=== PATIENT | male | born 1970 | race African-American/Black ===

== ENCOUNTER 2018-08-09 10:08 | Inpatient (IN) ==
[2018-08-09] MEDS ORDERED: Dextrose 50% in Water 50 ML Vial IV.PUSH PRN ×2 (10:50→22:40)
--- NOTE | 2018-08-09 10:55 | ED ---
HPI General Chief complaint: Urogenital-Male Stated complaint: abd pain Time Seen by Provider: 08/09/18 10:41 Source: patient Mode of arrival: ambulatory Limitations: no limitations History of Present Illness HPI Narrative: The patient is a 48-year-old -[place] male who presents to the emergency department for generalized malaise and weakness of 4 days duration. The patient states the symptoms started approximately 4 days ago. The patient complains of fatigue, polydipsia, and polyuria. The patient also complains of mild distention of the abdomen but denies any nausea, vomiting, diarrhea, or constipation. The patient's last bowel movement was 2 days ago. The patient does have a history of "borderline diabetes "that was diagnosed 8 years ago, however, is not currently on any medications. He does have a significant family history of diabetes. The patient denies any chest pain, shortness of breath, or cough. Symptoms are moderate and progressive. The patient does not currently have a primary physician. The patient denies any dysuria or hematuria with the polyuria. MD Complaint: Reports generalized weakness Onset (ago): day(s) Duration: constant Location: Reports generalized Migration: Reports none Severity: moderate Relieving factors: none Exacerbating factors: none Associated symptoms: Reports loss of appetite and other Related Data Home Medications Medication Instructions Recorded Confirmed No Known Home Medications 08/09/18 08/09/18 Allergies Allergy/AdvReac Type Severity Reaction Status Date / Time No Known Allergies Allergy Mild Uncoded 05/22/10 07:57 Review of Systems ROS: all other systems reviewed are negative [facility] Medical History Medical History Patient denies medical problems (Acute) Surgical History Surgical History No history of previous surgery (Acute) Social History Social History Substance History: No History of Abuse Smoking Status: Never smoker How Often Do You Have a Drink Containing Alcohol: 2 to 4 times a month Recent Travel in [facility] within the Last 8 Weeks: No Recent Out of Country Travel within the Last 8 Weeks: No Exam Narrative Exam Narrative: GENERAL: Awake, alert, pleasant 48-year-old male who appears his stated age and is in no acute respiratory distress. SKIN: Focused skin assessment warm/dry. HEAD: Atraumatic. Normocephalic. EYES: Pupils equal and round. No scleral icterus. No injection or drainage. ENT: No nasal bleeding or discharge. Slightly dry mucous membranes. NECK: Trachea midline. No JVD. CARDIOVASCULAR: Regular, tachycardic with a heart rate at 110. RESPIRATORY: No accessory muscle use. Clear to auscultation. Breath sounds equal bilaterally. GASTROINTESTINAL: Abdomen soft, non-tender, nondistended. No epigastric tenderness, no guarding rigidity. MUSCULOSKELETAL: No obvious deformities. No clubbing. No cyanosis. No edema. NEUROLOGICAL: Awake and alert. No obvious cranial nerve deficits. Motor grossly within normal limits. Normal speech. Nonfocal. PSYCHIATRIC: Appropriate mood and affect; insight and judgment normal. Course Initial Documented Vital Signs Temperature 97.6 F 08/09/18 10:13 Pulse Rate 107 H 08/09/18 10:13 Respiratory Rate 20 08/09/18 10:13 Blood Pressure 132/87 08/09/18 10:13 Pulse Oximetry 98 08/09/18 10:13 Last Documented Vital Signs Temperature 97.6 F 08/09/18 10:13 Pulse Rate 107 H 08/09/18 10:13 Respiratory Rate 20 08/09/18 10:13 Blood Pressure 132/87 08/09/18 10:13 Pulse Oximetry 98 08/09/18 10:13 Critical Care Time Critical Care Time: Yes Total Critical Care Time: 35 Attestation: Aggregate critical care time was 35 minutes. Time to perform other separately billable procedures was not included in the critical care time. My time did not include minutes spent treating any other patients simultaneously or on activities that did not directly contribute to the patient's treatment. The services I provided to this patient were to treat and/or prevent clinically significant deterioration that could result in: Dehydration, acute kidney injury , electrolyte of normality, encephalopathy. I provided critical care services requiring my management, as noted below: Chart data review, documentation time, medication orders and management, vital sign assessments/reviewing monitor data, ordering and reviewing lab tests, ordering and interpreting/reviewing x-rays and diagnostic studies, care of the patient and discussion of the patient with the admitting physicians. Medical Decision Making MDM Narrative Medical decision making narrative: IV was established, labs are drawn and sent, and the patient was placed on cardiac telemetry monitoring and continuous pulse oximetry monitoring. Bedside Accu-Chek was obtained, was read as "high ". Therefore, the patient was administered 2 L of IV fluids and Accu-Chek every hour was ordered. VBG was sent to lab. UA was sent to lab. EKG was ordered and interpreted. His blood sugar was greater than 700, anion gap was 17, VBG revealed pH of 7.27, bicarb was 19, patient appears to have mild DKA. After 2 L of IV fluids the patient's blood sugar was still read as "high ", therefore, patient will be placed on an insulin drip and admitted to the intensive care unit under the hospitalist service. I discussed the patient with Dr. Wilcox who agrees with admission. Medical Screen Exam Complete: Yes Emergency Medical Condition: Yes Differential Diagnosis Differential Diagnosis: Differential diagnosis includes DKA, hyperglycemia, new onset diabetes, dehydration, acute kidney injury, electrolyte abnormality, STEMI , UTI, pancreatitis. Lab Data Result diagrams: 08/09/18 12:35 08/09/18 12:35 Lab Results 08/09/18 08/09/18 08/09/18 Range/Units 10:48 12:35 12:35 WBC 9.3 (4.0-11.0) th/mm3 RBC 5.26 (4.50-5.90) mil/mm3 Hgb 17.0 (13.0-17.0) gm/dL Hct 49.8 (39.0-51.0) % MCV 94.8 (80.0-100.0) fL MCH 32.3 (27.0-34.0) pg MCHC 34.1 (32.0-36.0) % RDW 12.6 (11.6-17.2) % Plt Count 277 (150-450) th/mm3 MPV 10.2 (7.0-11.0) fL Neut % (Auto) 80.7 H (16.0-70.0) % Lymph % (Auto) 14.9 (9.0-44.0) % Bonner % (Auto) 4.2 (0.0-8.0) % Eos % (Auto) 0.0 (0.0-4.0) % Baso % (Auto) 0.2 (0.0-2.0) % Neut # (Auto) 7.5 (1.8-7.7) th/mm3 Lymph # (Auto) 1.4 (1.0-4.8) th/mm3 Bonner # (Auto) 0.4 (0.0-0.9) th/mm3 Eos # (Auto) 0.0 (0.0-0.4) th/mm3 Baso # (Auto) 0.0 (0.0-0.2) th/mm3 WBC Differential . Differential Comment Auto diff final Patient Temperature VBG pH (7.360-7.400) VBG pCO2 (44-48) mmHG VBG pO2 (35-40) mmHG VBG HCO3 (22-26) mmol/L VBG O2 Saturation (70-76) % VBG O2 Content (9.0-17.0) Vol % VBG Base Excess (-2-2) mmol/L VBG Carboxyhemoglobin (0-4) % VBG Methemoglobin (0-2) % Hemoglobin (12.0-16.0) G/DL Inspired O2 % Critical Value Sodium 130 L (136-145) meq/L Potassium 5.5 H (3.5-5.1) meq/L Chloride 94 L (98-107) meq/L Carbon Dioxide 19.5 L (21.0-32.0) meq/L Anion Gap 17 H (5-15) meq/L BUN 31 H (7-18) mg/dL Creatinine 1.96 H (0.60-1.30) mg/dL Estimated GFR 44 L (>89) mL/min POC Glucose Greater than 600 H* (68-110) mg/dl Random Glucose 712 H* (74-106) mg/dL Lactic Acid (0.4-2.0) mmol/L Calcium 9.4 (8.5-10.1) mg/dL Magnesium 2.7 H (1.5-2.5) mg/dL Total Bilirubin 0.6 (0.2-1.0) mg/dL AST 17 (15-37) U/L ALT 40 (12-78) U/L Alkaline Phosphatase 138 H (45-117) U/L Troponin I Less than 0.02 L (0.02-0.05) ng/mL Total Protein 9.5 H (6.4-8.2) g/dL Albumin 4.3 (3.4-5.0) g/dL Lipase 300 (73-393) U/L Beta-Hydroxybutyric Acd 5.62 H (0.00-0.39) mmol/L Urine Color (Yellw/Straw) Urine Clarity (Clear) Urine pH (5.0-8.5) Ur Specific [place] (1.002-1.035) Urine Protein (Neg-Trace) mg/dL Urine Glucose (UA) (Negative) mg/dL Urine Ketones (Negative) mg/dL Urine Occult Blood (Negative) Urine Nitrate (Negative) Urine Bilirubin (Negative) Urine Urobilinogen (Less than 2) mg/dL Ur Leukocyte Esterase (Negative) Urine RBC (0-3) /hpf Urine WBC (0-5) /hpf Ur Squamous Epith Cells (0-5) /hpf Urine Mucus (Occasional) /lpf Micro UA Comment Ur Microscopic Review Urine Culture Comments 08/09/18 08/09/18 08/09/18 Range/Units 12:35 13:10 14:21 WBC (4.0-11.0) th/mm3 RBC (4.50-5.90) mil/mm3 Hgb (13.0-17.0) gm/dL Hct (39.0-51.0) % MCV (80.0-100.0) fL MCH (27.0-34.0) pg MCHC (32.0-36.0) % RDW (11.6-17.2) % Plt Count (150-450) th/mm3 MPV (7.0-11.0) fL Neut % (Auto) (16.0-70.0) % Lymph % (Auto) (9.0-44.0) % Bonner % (Auto) (0.0-8.0) % Eos % (Auto) (0.0-4.0) % Baso % (Auto) (0.0-2.0) % Neut # (Auto) (1.8-7.7) th/mm3 Lymph # (Auto) (1.0-4.8) th/mm3 Bonner # (Auto) (0.0-0.9) th/mm3 Eos # (Auto) (0.0-0.4) th/mm3 Baso # (Auto) (0.0-0.2) th/mm3 WBC Differential Differential Comment Patient Temperature 98.6 VBG pH 7.28 L* (7.360-7.400) VBG pCO2 44 (44-48) mmHG VBG pO2 24 L* (35-40) mmHG VBG HCO3 20 L (22-26) mmol/L VBG O2 Saturation 31 L (70-76) % VBG O2 Content 6.4 L (9.0-17.0) Vol % VBG Base Excess -6.0 L (-2-2) mmol/L VBG Carboxyhemoglobin 0.5 (0-4) % VBG Methemoglobin 0.6 (0-2) % Hemoglobin 14.6 (12.0-16.0) G/DL Inspired O2 21 % Critical Value Yes Sodium (136-145) meq/L Potassium (3.5-5.1) meq/L Chloride (98-107) meq/L Carbon Dioxide (21.0-32.0) meq/L Anion Gap (5-15) meq/L BUN (7-18) mg/dL Creatinine (0.60-1.30) mg/dL Estimated GFR (>89) mL/min POC Glucose (68-110) mg/dl Random Glucose (74-106) mg/dL Lactic Acid 3.9 H (0.4-2.0) mmol/L Calcium (8.5-10.1) mg/dL Magnesium (1.5-2.5) mg/dL Total Bilirubin (0.2-1.0) mg/dL AST (15-37) U/L ALT (12-78) U/L Alkaline Phosphatase (45-117) U/L Troponin I (0.02-0.05) ng/mL Total Protein (6.4-8.2) g/dL Albumin (3.4-5.0) g/dL Lipase (73-393) U/L Beta-Hydroxybutyric Acd (0.00-0.39) mmol/L Urine Color Straw (Yellw/Straw) Urine Clarity Clear (Clear) Urine pH 5.0 (5.0-8.5) Ur Specific [place] 1.027 (1.002-1.035) Urine Protein Negative (Neg-Trace) mg/dL Urine Glucose (UA) 500 or greater (Negative) mg/dL Urine Ketones 20 (Negative) mg/dL Urine Occult Blood Negative (Negative) Urine Nitrate Negative (Negative) Urine Bilirubin Negative (Negative) Urine Urobilinogen Less than 2 (Less than 2) mg/dL Ur Leukocyte Esterase Negative (Negative) Urine RBC Less than 1 (0-3) /hpf Urine WBC Less than 1 (0-5) /hpf Ur Squamous Epith Cells <1 (0-5) /hpf Urine Mucus Few H (Occasional) /lpf Micro UA Comment Culture not ind Ur Microscopic Review Not Reportable Urine Culture Comments Culture not ind 08/09/18 Range/Units 14:23 WBC (4.0-11.0) th/mm3 RBC (4.50-5.90) mil/mm3 Hgb (13.0-17.0) gm/dL Hct (39.0-51.0) % MCV (80.0-100.0) fL MCH (27.0-34.0) pg MCHC (32.0-36.0) % RDW (11.6-17.2) % Plt Count (150-450) th/mm3 MPV (7.0-11.0) fL Neut % (Auto) (16.0-70.0) % Lymph % (Auto) (9.0-44.0) % Bonner % (Auto) (0.0-8.0) % Eos % (Auto) (0.0-4.0) % Baso % (Auto) (0.0-2.0) % Neut # (Auto) (1.8-7.7) th/mm3 Lymph # (Auto) (1.0-4.8) th/mm3 Bonner # (Auto) (0.0-0.9) th/mm3 Eos # (Auto) (0.0-0.4) th/mm3 Baso # (Auto) (0.0-0.2) th/mm3 WBC Differential Differential Comment Patient Temperature VBG pH (7.360-7.400) VBG pCO2 (44-48) mmHG VBG pO2 (35-40) mmHG VBG HCO3 (22-26) mmol/L VBG O2 Saturation (70-76) % VBG O2 Content (9.0-17.0) Vol % VBG Base Excess (-2-2) mmol/L VBG Carboxyhemoglobin (0-4) % VBG Methemoglobin (0-2) % Hemoglobin (12.0-16.0) G/DL Inspired O2 % Critical Value Sodium (136-145) meq/L Potassium (3.5-5.1) meq/L Chloride (98-107) meq/L Carbon Dioxide (21.0-32.0) meq/L Anion Gap (5-15) meq/L BUN (7-18) mg/dL Creatinine (0.60-1.30) mg/dL Estimated GFR (>89) mL/min POC Glucose Greater than 600 H* (68-110) mg/dl Random Glucose (74-106) mg/dL Lactic Acid (0.4-2.0) mmol/L Calcium (8.5-10.1) mg/dL Magnesium (1.5-2.5) mg/dL Total Bilirubin (0.2-1.0) mg/dL AST (15-37) U/L ALT (12-78) U/L Alkaline Phosphatase (45-117) U/L Troponin I (0.02-0.05) ng/mL Total Protein (6.4-8.2) g/dL Albumin (3.4-5.0) g/dL Lipase (73-393) U/L Beta-Hydroxybutyric Acd (0.00-0.39) mmol/L Urine Color (Yellw/Straw) Urine Clarity (Clear) Urine pH (5.0-8.5) Ur Specific [place] (1.002-1.035) Urine Protein (Neg-Trace) mg/dL Urine Glucose (UA) (Negative) mg/dL Urine Ketones (Negative) mg/dL Urine Occult Blood (Negative) Urine Nitrate (Negative) Urine Bilirubin (Negative) Urine Urobilinogen (Less than 2) mg/dL Ur Leukocyte Esterase (Negative) Urine RBC (0-3) /hpf Urine WBC (0-5) /hpf Ur Squamous Epith Cells (0-5) /hpf Urine Mucus (Occasional) /lpf Micro UA Comment Ur Microscopic Review Urine Culture Comments Discharge Plan Discharge Order Discharge Orders: ED Use Only Admit Order (Routine); Ordered 08/09/18 Ordered By: David Benavidez Physicians Team ED Provider: David Benavidez Primary Care Provider: Primary Care Cindy Blanton Rxs /Orders / Referrals /Forms Prescriptions: No Action No Known Home Medications RF: 0 Discharge Interventions Interventions: Vital Signs Last Done: 08/09/18 10:13 Status ED Status: Admitted Patient
[2018-08-09] MEDS: Sod Chloride 0.9% Inj 1,000 ML IV.SIG SCH ×2 (12:39→13:14)
[2018-08-09 13:03] LABS: Baso % (Auto) 0.2 % (0.0-2.0); Hematocrit 49.8 % (39.0-51.0); Lymph # (Auto) 1.4 th/mm3 (1.0-4.8); Lymph % (Auto) 14.9 % (9.0-44.0); Mean Corpuscular HGB Conc 34.1 % (32.0-36.0); Mean Corpuscular Hemoglobin 32.3 pg (27.0-34.0); Mean Corpuscular Volume 94.8 fL (80.0-100.0); Mean Platelet Volume 10.2 fL (7.0-11.0); Mono # (Auto) 0.4 th/mm3 (0.0-0.9); Mono % (Auto) 4.2 % (0.0-8.0); Neut # (Auto) 7.5 th/mm3 (1.8-7.7); Neut % (Auto) 80.7 % (16.0-70.0); Platelet Count 277 th/mm3 (150-450); Red Blood Count 5.26 mil/mm3 (4.50-5.90); Red Cell Distribution Width 12.6 % (11.6-17.2); White Blood Count 9.3 th/mm3 (4.0-11.0)
[2018-08-09 13:34] LABS: Anion Gap 17 meq/L (5-15)
[2018-08-09 13:43] LABS: Bilirubin,Urine Negative (Negative); Clarity,Urine Clear (Clear); Color,Urine Straw (Yellw/Straw); Glucose,Urine (UA) 500 or Greater mg/dL (Negative); Leukocyte Esterase,Urine Negative (Negative); Mucus,Urine Few /lpf (Occasional); Nitrite,Urine Negative (Negative); Specific Gravity,Urine 1.027 (1.002-1.035); Squamous Epithelial Cell,Urine <1 /hpf (0-5)
[2018-08-09 13:50] LABS: Alanine Aminotransferase 40 U/L (12-78); Albumin 4.3 g/dL (3.4-5.0); Alkaline Phosphatase 138 U/L (45-117); Aspartate Aminotransferase 17 U/L (15-37); Beta Hydroxybutyric Acid 5.62 mmol/L (0.00-0.39); Blood Urea Nitrogen 31 mg/dL (7-18); Calcium 9.4 mg/dL (8.5-10.1); Carbon Dioxide 19.5 meq/L (21.0-32.0); Chloride 94 meq/L (98-107); Glomerular Filtration Rate 44 mL/min (>89); Lipase 300 U/L (73-393); Magnesium 2.7 mg/dL (1.5-2.5); Potassium 5.5 meq/L (3.5-5.1); Sodium 130 meq/L (136-145); Total Protein 9.5 g/dL (6.4-8.2)
[2018-08-09 13:57] LABS: Glucose,Random 712 mg/dL (74-106)
[2018-08-09 14:30] LABS: VBG Blood Gas Oxygen Content 6.4 Vol % (9.0-17.0); VBG PCO2 44 mmHG (44-48); VBG PH 7.28 (7.360-7.400); VBG PO2 24 mmHG (35-40)
[2018-08-09] MEDS ORDERED: Sodium Phosphate Inj 15 MMOL in Sodium Chlor 0.9% Inj 100 ML IV.SIG PRN (14:41)
[2018-08-09] MEDS ORDERED: Potassium Chlor 20 mEq Premix 20 MEQ/100 ML PIGGYBACK IV.SIG PRN ×6 (14:41)
[2018-08-09] MEDS ORDERED: Potassium Chlor 40 mEq Premix 40 MEQ/100 ML PIGGYBACK IV.SIG PRN ×2 (14:41)
[2018-08-09] MEDS ORDERED: Insulin Regular (For Infusion) 100 UNIT in Sodium Chlor 0.9% Inj 99 ML IV.CONT PRN (14:41)
[2018-08-09] MEDS: Sod Chloride 0.9% Inj 1,000 ML IV.CONT SCH ×2 (14:51→23:27)
--- NOTE | 2018-08-09 15:21 | P.HPIM ---
History of Present Illness Primary Care Physician: No Primary Care Physician Chief Complaint: generalized weakness History of Present Illness: patient is a 48 y/o male with ' borderline diabetes ' presented to ER with few-day history of generalized weakness. he says that he hasn't seen a physician for many years but he was told in the past that he had borderline diabetes. he says that for a few days he's been feeling weak. he has polyuria and feels thirsty. he's not sure if he lost any weight. he denies any abdominal pain, nausea, vomiting, fever, chills, cough or vision changes. Inpatient Certification Inpatient Certification: I certify that the inpatient services were ordered in accordance with Medicare regulations governing the order. This includes certification that hospital inpatient services are reasonable and necessary and in the case of services not specified as inpatient-only under 42 CFR 419.22(n), that they are appropriately provided as inpatient services in accordance to with the 2-midnight benchmark under 43 CFR 412.3(e) Review of Systems Review of Systems: all other systems reviewed are negative [facility] Medical History Medical History Borderline diabetes (Acute) Patient denies medical problems (Acute) Surgical History Surgical History No history of previous surgery (Acute) Family History Family History Mother Diabetes Social History Social History Substance History: No History of Abuse Smoking Status: Never smoker How Often Do You Have a Drink Containing Alcohol: 2 to 4 times a month Recent Travel in [facility] within the Last 8 Weeks: No Recent Out of Country Travel within the Last 8 Weeks: No Immunization History Tetanus Immunization: <5 Years Medications and Allergies Allergies Allergy/AdvReac Type Severity Reaction Status Date / Time No Known Allergies Allergy Mild Uncoded 05/22/10 07:57 Home Medications Medication Instructions Recorded Confirmed Type No Known Home Medications 08/09/18 08/09/18 History Active Medications: Active Medications Chlorhexidine Gluconate (Chlorhexidine 2% Cloth) 3 pack TOPICAL DAILY@0400 [facility] Stop: 08/15/18 03:59 Chlorhexidine Gluconate (Chlorhexidine 2% Cloth) 3 pack TOPICAL DAILY@0400 PRN PRN Reason: Extra cloth needed Stop: 08/15/18 03:59 Dextrose (D50w Vial) 50 ml IV.PUSH UNSCH PRN PRN Reason: PER HYPOGLYCEMIA PROTOCOL Dextrose/Sodium Chloride (D5w/Normal Saline Inj) 1,000 mls @ 200 mls/hr IV.CONT .Q5H [facility] Insulin Human Regular 100 unit (/ Sodium Chloride) 100 mls @ 10 mls/hr IV.CONT TITRATE PRN; Protocol PRN Reason: See protocol Potassium Chloride (Kcl 20 Meq Premix Inj) 20 meq in 100 mls @ 100 mls/hr IV.SIG Q1H PRN PRN Reason: for K+ 4.5 to 5 Potassium Chloride (Kcl 20 Meq Premix Inj) 20 meq in 100 mls @ 50 mls/hr IV.SIG Q2H PRN PRN Reason: for K+ 4.5 to 5 Potassium Chloride (Kcl 20 Meq Premix Inj) 20 meq in 100 mls @ 50 mls/hr IV.SIG Q2H PRN PRN Reason: for K+ 3.5 to 4.4 Potassium Chloride (Kcl 20 Meq Premix Inj) 20 meq in 100 mls @ 50 mls/hr IV.SIG Q2H PRN PRN Reason: for Initial K+ ONLY < 3.5 Potassium Chloride (Kcl 40 Meq Premix Inj) 40 meq in 100 mls @ 100 mls/hr IV.SIG Q1H PRN PRN Reason: for Initial K+ ONLY < 3.5 Potassium Chloride (Kcl 20 Meq Premix Inj) 20 meq in 100 mls @ 50 mls/hr IV.SIG Q2H PRN PRN Reason: for Subsequent K+ < 3.5 Potassium Chloride (Kcl 40 Meq Premix Inj) 40 meq in 100 mls @ 50 mls/hr IV.SIG Q2H PRN PRN Reason: for Subsequent K+ < 3.5 Sodium Chloride (Ns Inj) 1,000 mls @ 250 mls/hr IV.CONT .Q4H [facility] Last Admin: 08/09/18 14:51 Dose: 250 mls/hr Sodium Phosphate 15 mmol/ (Sodium Chloride) 105 mls @ 25 mls/hr IV.SIG UNSCH PRN PRN Reason: for Phosphate Level < 1.0 Potassium Chloride (Kcl 20 Meq Premix Inj) 20 meq in 100 mls @ 100 mls/hr IV.SIG Q1H PRN PRN Reason: for K+ 3.5 to 4.4 Sodium Bicarbonate (Sodium Bicarbonate 8.4% Inj) 100 meq IV.PUSH UNSCH PRN PRN Reason: for pH less than 6.9 Sodium Bicarbonate (Sodium Bicarbonate 8.4% Inj) 50 meq IV.PUSH UNSCH PRN PRN Reason: for pH 6.9 to 7.0 Sodium Chloride (Ns Flush) 2 ml IV.FLUSH PRN PRN PRN Reason: FLUSH AFTER USING IV ACCESS Physical Exam Vital signs: Last Vital Signs Temp 97.6 F 08/09/18 10:13 Pulse 107 H 08/09/18 10:13 Resp 20 08/09/18 10:13 BP 132/87 08/09/18 10:13 Pulse Ox 98 08/09/18 10:13 Intake & Output 08/07/18 08/08/18 08/09/18 08/10/18 06:59 06:59 06:59 06:59 Intake Total 1999 Balance 1999 Weight 95.708 kg Constitutional no acute distress Routine HEENT Exam Eye: Present PERRL Routine Neck Exam Present supple Routine Respiratory Exam Present CTA bilaterally Routine Cardiovascular Exam Present RRR Routine Abdominal Exam Present soft Routine Extremities Exam Comments: no pedal edema. Routine Neurological Exam Present alert and oriented X3 Results Labs CBC & Chem 7: 08/09/18 12:35 08/09/18 12:35 Caprini VTE Risk Assessment Caprini VTE Risk Assessment: Moderate/High Risk (score >= 2) Caprini Risk Assessment Model: Point Value = 1 Point Value = 2 Point Value = 3 Point Value = 5 Age 41-60 Minor surgery BMI > 25 kg/m2 Swollen legs Varicose veins or History of unexplained or recurrent spontaneous Oral contraceptives or hormone replacement Sepsis (< 1 month) Serious lung disease, including pneumonia (< 1 month) Abnormal pulmonary function Acute myocardial infarction Congestive heart failure (< 1 month) History of inflammatory bowel disease Medical patient at bed rest Age 61-74 Arthroscopic surgery Major open surgery (> 45 min) Laparoscopic surgery (> 45 min) Malignancy Confined to bed (> 72 hours) Immobilizing plaster cast Central venous access Age >= 75 History of VTE Family history of VTE Factor V Leiden Prothrombin [id number] Lupus anticoagulant Anticardiolipin antibodies Elevated serum homocysteine Heparin-induced thrombocytopenia Other congenital or acquired thrombophilia Stroke (< 1 month) Elective arthroplasty Hip, pelvis, or leg fracture Acute spinal cord injury (< 1 month) Prophylaxis Regimen: Total Risk Factor Score Risk Level Prophylaxis Regimen 0-1 Low Early ambulation 2 Moderate Order ONE of the following: *Sequential Compression Device (SCD) *Heparin 5000 units SQ BID 3-4 Higher Order ONE of the following medications: *Heparin 5000 units SQ TID *Enoxaparin/Lovenox 40 mg SQ daily (WT < 150 kg, CrCl > 30 mL/min) *Enoxaparin/Lovenox 30 mg SQ daily (WT < 150 kg, CrCl > 10-29 mL/min) *Enoxaparin/Lovenox 30 mg SQ BID (WT < 150 kg, CrCl > 30 mL/min) AND/OR *Sequential Compression Device (SCD) 5 or more Highest Order ONE of the following medications: *Heparin 5000 units SQ TID (Preferred with Epidurals) *Enoxaparin/Lovenox 40 mg SQ daily (WT < 150 kg, CrCl > 30 mL/min) *Enoxaparin/Lovenox 30 mg SQ daily (WT < 150 kg, CrCl > 10-29 mL/min) *Enoxaparin/Lovenox 30 mg SQ BID (WT < 150 kg, CrCl > 30 mL/min) AND *Sequential Compression Device (SCD) Assessment and Plan Plan A/P - DKA start on Insulin drip along with aggressive IV hydration-- monitor the electrolytes closely. check A1c and consult health promotion educator. -acute kidney injury/ hyperkalemia start on aggressive IV hydration and monitor the I/O and renal function. potassium level expected to improve with insulin drip. -Hyponatremia- due to hyperglycemia continue IV fluid and monitor. -DVT prophylaxis; subq heparin Discussed Condition With: ER physician and the patient. Discharge Planning: home when stable.
[2018-08-09] MEDS: Dextrose 5%/NaCl 0.9% Inj 1,000 ML IV.CONT SCH ×2 (19:04→23:28)
[2018-08-09 20:40] LABS: VBG Base Excess 0.1 mmol/L (-2-2); VBG Blood Gas Oxygen Content 16.9 Vol % (9.0-17.0); VBG PCO2 42 mmHG (44-48); VBG PH 7.38 (7.360-7.400); VBG PO2 48 mmHG (35-40)
[2018-08-09 20:44] LABS: Calcium 9.4 mg/dL (8.5-10.1); Carbon Dioxide 24.9 meq/L (21.0-32.0); Potassium 4.1 meq/L (3.5-5.1)
[2018-08-09] MEDS ORDERED: DC previous DKA orders (HMC 1917) OTHER ONE (22:40)
[2018-08-09] MEDS ORDERED: DC Insulin drip 2 hrs post basal insulin dose OTHER ONE (22:40)
[2018-08-09] MEDS ORDERED: DC previous DKA orders (HMC 1917) MISCELLANE ONE (22:40)
[2018-08-09] MEDS: Heparin - SQ 10,000 UNITS/ML Vial SQ SCH (23:29)
[2018-08-10] MEDS: Dextrose 5%/NaCl 0.9% Inj 1,000 ML IV.CONT SCH ×2 (00:55→05:57)
[2018-08-10] MEDS: Insulin NovoLOG Aspart Correctional Sugar Inj SQ SCH ×5 (00:55→23:49)
[2018-08-10 02:02] LABS: Calcium 8.6 mg/dL (8.5-10.1); Carbon Dioxide 23.7 meq/L (21.0-32.0); Potassium 4.1 meq/L (3.5-5.1)
[2018-08-10] MEDS ORDERED: Chlorhexidine Gluconate 2% 1 Pack (2 Cloths) TOPICAL PRN (04:00)
[2018-08-10] MEDS: Chlorhexidine Gluconate 2% 1 Pack (2 Cloths) TOPICAL SCH (05:57)
[2018-08-10] MEDS: Sod Chloride 0.9% Inj 1,000 ML IV.CONT SCH ×4 (05:57→17:44)
--- NOTE | 2018-08-10 07:28 | P.PNIM ---
Subjective Interval history: f/u; DKA in no acute distress. resting comfortably with no distress. blood sugar trend noted. no new complaints. Physical Exam Vital signs: Last Vital Signs Temp 98.6 F 08/10/18 04:00 Pulse 81 08/10/18 06:00 Resp 10 L 08/10/18 04:00 BP 133/75 08/10/18 04:00 Pulse Ox 100 08/10/18 04:00 Intake & Output 08/08/18 08/09/18 08/10/18 08/11/18 06:59 06:59 06:59 06:59 Intake Total 4350 / 4350 Output Total 2500 / 2500 Balance 1850 / 1850 Weight 107.2 kg Constitutional no acute distress Routine Respiratory Exam Present CTA bilaterally Routine Cardiovascular Exam Present RRR Routine Abdominal Exam Present soft Routine Extremities Exam Comments: no pedal edema. Routine Neurological Exam Present alert and oriented X3 Results Labs CBC & Chem 7: 08/09/18 12:35 08/10/18 08:15 Assessment and Plan Plan A/P - DKA- has resolved. Insulin drip was dc'ed and started on long acting insulin along with SSI- A1c pending- prosthodontist/educator consulted. -acute kidney injury- improved. -hyperkalemia; resolved. continue with IV fluid and monitor the renal function. -Hyponatremia- due to hyperglycemia- improved. continue IV fluid and monitor. -DVT prophylaxis; subq heparin transfer to floor. Discharge Planning: home within the next 24 hrs. Progress Note: Quality VTE Deep Vein Thrombosis/Pulmonary Embolism Present on Admission: No
[2018-08-10] MEDS: Heparin - SQ 10,000 UNITS/ML Vial SQ SCH ×2 (08:13→20:44)
[2018-08-10] MEDS ORDERED: Insulin Detemir Inj 1,000 UNIT/10 ML Vial SQ SCH (09:00)
[2018-08-10 10:16] LABS: Calcium 9.2 mg/dL (8.5-10.1); Carbon Dioxide 25.7 meq/L (21.0-32.0); Potassium 3.9 meq/L (3.5-5.1)
[2018-08-10 15:27] LABS: Calcium 8.8 mg/dL (8.5-10.1); Carbon Dioxide 26.9 meq/L (21.0-32.0); Potassium 3.8 meq/L (3.5-5.1)
[2018-08-10 16:26] LABS: Hemoglobin A1c 13.4 % (4.3-6.0)
[2018-08-11] MEDS: Insulin NovoLOG Aspart Correctional Sugar Inj SQ SCH ×3 (07:00→17:28)
[2018-08-11 07:27] LABS: Calcium 8.4 mg/dL (8.5-10.1); Potassium 3.3 meq/L (3.5-5.1)
[2018-08-11] MEDS: Sod Chloride 0.9% Inj 1,000 ML IV.CONT SCH ×2 (08:08→10:45)
[2018-08-11] MEDS: Chlorhexidine Gluconate 2% 1 Pack (2 Cloths) TOPICAL SCH (08:09)
[2018-08-11] MEDS: Insulin Detemir Inj 1,000 UNIT/10 ML Vial SQ SCH (09:23)
[2018-08-11] MEDS: Heparin - SQ 10,000 UNITS/ML Vial SQ SCH ×2 (09:24→20:29)
--- NOTE | 2018-08-11 12:52 | P.PN ---
Subjective Interval history: Follow-up visit for hyperglycemia, DKA. Patient is seen and examined sitting up on the side of the bed eating lunch this morning. Reports he is feeling much better and denies any ongoing urinary frequency. Denies any fevers, chills , nausea, vomiting or diarrhea. Extensive discussion regarding diabetes, diet, medications, hypoglycemia signs and symptoms and the need to continue follow-up with his primary care physician. Discussed with nurse, please allow patient to self administer insulin while supervised and continue education. Physical Exam Vital signs: Vital Signs 08/10/18 14:00 08/10/18 16:00 08/10/18 17:00 Temperature 98.6 F Pulse Rate 86 70 83 Respiratory Rate 12 14 Blood Pressure 141/85 H 139/90 Pulse Oximetry 100 100 08/10/18 18:00 08/10/18 18:01 08/10/18 19:00 Temperature Pulse Rate 82 81 86 Respiratory Rate 24 22 14 Blood Pressure 167/100 H 124/64 Pulse Oximetry 100 100 100 08/10/18 20:00 08/11/18 00:00 08/11/18 04:00 Temperature 98.4 F 98.0 F 97.5 F L Pulse Rate 96 H 87 75 Respiratory Rate 27 H 18 18 Blood Pressure 129/68 138/87 150/76 H Pulse Oximetry 100 98 100 08/11/18 08:00 08/11/18 12:00 Temperature 97.5 F L 97.6 F Pulse Rate 90 67 Respiratory Rate 12 12 Blood Pressure 139/85 126/74 Pulse Oximetry 100 99 Intake & Output 08/10/18 08/11/18 08/11/18 18:59 06:59 18:59 Intake Total 500 / 500 480 / 480 Output Total 900 / 900 Balance -400 / -400 480 / 480 Weight 107.4 kg Intake: Oral 500 / 500 480 / 480 Output: Urine 900 / 900 Stool 0 / 0 Urine/Stool Mix 0 / 0 Other: # Voids 2 2 # Bowel Movements 0 # Incontinent Bowel Movements 0 Narrative: GENERAL: Well-nourished, well-developed -[place] male in no acute distress. SKIN: Warm and dry. HEAD: Atraumatic. Normocephalic. ENT: Mucous membranes pink and moist. NECK: Trachea midline. CARDIOVASCULAR: Regular rate and rhythm. RESPIRATORY: No accessory muscle use. Clear to auscultation. Breath sounds equal bilaterally. GASTROINTESTINAL: Abdomen soft, + Bowel sounds MUSCULOSKELETAL: Extremities without clubbing, cyanosis, or edema. NEUROLOGICAL: Awake, alert, oriented x3. No obvious cranial nerve deficits. Motor grossly within normal limits. Normal speech. PSYCHIATRIC: Appropriate mood and affect; insight and judgment normal. Results - Labs CBC & Chem 7: 08/09/18 12:35 08/11/18 05:25 Laboratory Results - last 24 hr 08/09/18 08/10/18 08/10/18 12:35 14:34 17:13 Sodium 142 Potassium 3.8 Chloride 109 H Carbon Dioxide 26.9 Anion Gap 6 BUN 23 H Creatinine 1.29 Estimated GFR 72 L POC Glucose 303 H Random Glucose 299 H Hemoglobin A1c 13.4 H Calcium 8.8 08/10/18 08/11/18 08/11/18 23:42 05:25 06:49 Sodium 140 Potassium 3.3 L Chloride 107 Carbon Dioxide 25.0 Anion Gap 8 BUN 17 Creatinine 1.17 Estimated GFR 81 L POC Glucose 248 H 277 H Random Glucose 274 H Hemoglobin A1c Calcium 8.4 L 08/11/18 11:56 Sodium Potassium Chloride Carbon Dioxide Anion Gap BUN Creatinine Estimated GFR POC Glucose 321 H Random Glucose Hemoglobin A1c Calcium Assessment and Plan - Plan 48-year-old male with past medical history significant for borderline diabetes who presented to the emergency department 08/09 with complaints of generalized weakness, polyuria and polydipsia. Patient found to be in diabetic ketoacidosis with anion gap of 17, beta-Hydroxybutyric acid 5.62 blood sugar greater than 700, acute kidney injury with creatinine 1.96, and hyperkalemia with potassium level 5.5. Patient was admitted and initiated on insulin drip. Diabetic ketoacidosis, resolved Hemoglobin A1c 13.4 -Diabetic diet, diabetic education provided -Accu-Cheks with insulin sliding scale, blood sugars over the past 24 hours 351- 277 -Increase a.m. Levemir to 15 units, add at bedtime Levemir 5 units Hyponatremia, resolved Hypokalemia, mild -Replace orally, recheck levels tomorrow Acute kidney injury, improved -IV fluids discontinued, tolerating oral intake. 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 Current medications still being adjusted, likely discharge tomorrow.
[2018-08-11] MEDS ORDERED: Insulin Detemir Inj 1,000 UNIT/10 ML Vial SQ SCH (21:00)
[2018-08-12] MEDS: Insulin NovoLOG Aspart Correctional Sugar Inj SQ SCH ×4 (00:40→17:00)
[2018-08-12] MEDS: Heparin - SQ 10,000 UNITS/ML Vial SQ SCH (08:00)
[2018-08-12] MEDS: Insulin Detemir Inj 1,000 UNIT/10 ML Vial SQ SCH (08:07)
--- NOTE | 2018-08-12 08:18 | P.DS ---
Date of admission: 08/09/18 14:52 Primary care physician: No Primary Care Physician Attending physician on discharge: [place] Rodríguez Anticipated date of discharge: 08/12/18 Brief History from admission: patient is a 48 y/o male with ' borderline diabetes' presented to ER with few- day history of generalized weakness. he says that he hasn't seen a physician for many years but he was told in the past that he had borderline diabetes. he says that for a few days he's been feeling weak. he has polyuria and feels thirsty. he's not sure if he lost any weight. he denies any abdominal pain, nausea, vomiting, fever, chills, cough or vision changes. DS: Medications - Discharge Medications Prescriptions: insulin aspart U-100 [Novolog U-100 Insulin aspart] 0 unit SUBCUT ACHS #15 ml insulin detemir U-100 [Levemir U-100 Insulin] 15 unit SUBCUT DAILY #15 ml insulin detemir U-100 [Levemir U-100 Insulin] 5 unit SUBCUT HS #15 ml DS: Summary Hospital Course: 48-year-old male with past medical history significant for borderline diabetes who presented to the emergency department on 08/09 with complaints of generalized weakness, polyuria and polydipsia. Patient found to be in diabetic ketoacidosis with anion gap of 17, beta-Hydroxybutyric acid 5.62 blood sugar greater than 700, acute kidney injury with creatinine 1.96, and hyperkalemia with potassium level 5.5. Patient was admitted and initiated on insulin drip. Patients blood sugars subsequently improved and anion gap closed with improvement in symptoms. Patient was switched over to Accu-Cheks as well as long acting insulin. Levemir 15 units in the morning, 5 units at bedtime along with insulin sliding scale. Blood sugars in the 130s. Hypokalemic this morning with potassium 3.2, will be provided with 30 meq's of potassium x2 doses prior to discharge. Patient is seen and examined sitting up in bed in no acute distress. Denies any fevers, chills, nausea, vomiting, diarrhea, dysuria , polydipsia, or urinary frequency. Discussed the importance of ongoing monitoring including hemoglobin A1c, blood sugars with his primary care physician. Discussed with case management. All of his prescriptions will be refilled today through the inpatient pharmacy, provided as daily clinic information. - Time Spent with Patient Total time spent providing and/or coordinating discharge services: Less than 30 minutes - Quality: VTE Deep Vein Thrombosis/Pulmonary Embolism Present on Admission: No Exam Vital signs: Vital Signs 08/11/18 12:00 08/11/18 16:00 08/11/18 20:20 Temperature 97.6 F 97.5 F L Pulse Rate 67 84 Respiratory Rate 12 18 Blood Pressure 126/74 138/85 Pulse Oximetry 99 100 100 08/11/18 20:33 08/11/18 20:49 08/12/18 00:38 Temperature 98.3 F 97.7 F Pulse Rate 76 82 Respiratory Rate 20 18 Blood Pressure 157/78 H 124/68 Pulse Oximetry 100 98 100 Intake & Output 08/11/18 08/12/18 08/12/18 18:59 06:59 18:59 Intake Total 480 / 480 480 / 480 Balance 480 / 480 480 / 480 Intake: Oral 480 / 480 480 / 480 Other: # Voids 4 3 Date of Last Bowel Movement 08/11/18 # Bowel Movements 1 Narrative: GENERAL: Well-nourished, well-developed -[place] male in no acute distress. SKIN: Warm and dry. HEAD: Atraumatic. Normocephalic. ENT: Mucous membranes pink and moist. NECK: Trachea midline. CARDIOVASCULAR: Regular rate and rhythm. RESPIRATORY: No accessory muscle use. Clear to auscultation. Breath sounds equal bilaterally. GASTROINTESTINAL: Abdomen soft, + Bowel sounds MUSCULOSKELETAL: Extremities without clubbing, cyanosis, or edema. NEUROLOGICAL: Awake, alert, oriented x3. No obvious cranial nerve deficits. Motor grossly within normal limits. Normal speech. PSYCHIATRIC: Appropriate mood and affect; insight and judgment normal. Results Procedures completed during hospitalization: None Labs on day of discharge: Labs from last 24 hours 08/12/18 08/12/18 08/12/18 08:05 05:36 04:13 Potassium 3.2 L POC Glucose 130 H 137 H 08/11/18 08/11/18 08/11/18 23:50 19:41 17:04 Potassium POC Glucose 230 H 362 H 365 H 08/11/18 11:56 Potassium POC Glucose 321 H Discharge Plan - Discharge Disposition Patient Disposition: 01 Discharge Home - Discharge Condition Condition: Stable - Discharge Order Discharge Orders: Discharge Order (Routine); Ordered 08/12/18 Ordered By: Gianfranco Ferreira - Physicians Team Primary Care Provider: Primary Care Harvinder,Cindy Attending Provider: [place] Rodríguez
[2018-08-12 09:25] VITALS: RESP 16
[2018-08-12 14:17] VITALS: BP 125/57; PULSE 87; TEMP 98.5; O2SAT 100
== END 2018-08-12 18:08 | disposition home or self-care (01) | DRG 638 ==
LOC: NEPD 10:08 → NEDA 14:52 → HIMC 16:45 → N06 08-10 22:15
PROVIDERS: ADMIT Internal Medicine; ATTEND Internal Medicine
CPT/HCPCS: 76937; 80048; 80053; 81001; 82010; 82803; 82805; 82947; 82948; 82962; 83036; 83605; 83690; 83735; 84132; 84484; 85025; 87641; 90761; 90774; 90784; 96361; 96374; 99291; C8952; J1644; J1815; J1817; J7030; J7042

== ENCOUNTER 2018-09-27 18:27 | Inpatient (IN) ==
--- NOTE | 2018-09-27 19:13 | XR ---
EXAM DATE: 09/27/2018 7:08 PM EST AGE/SEX: 48 years / Male INDICATIONS: Right sided weakness and numbness. CLINICAL DATA: This is the patient's initial encounter. Patient reports that signs and symptoms have been present for 1 day and indicates a pain score of 0/10. MEDICAL/SURGICAL HISTORY: None. None. COMPARISON: No prior exams available for comparison. FINDINGS: A single AP view of the chest demonstrates the lungs to be symmetrically aerated without evidence of mass, infiltrate or effusion. The cardiomediastinal contours are unremarkable. Osseous structures a re intact. CONCLUSION: The lungs are clear. Electronically signed by: Mati Avila MD Board Certified Radiologist 09/27/2018 7:12 PM EST
--- NOTE | 2018-09-27 19:17 | ED ---
HPI General Chief complaint: Back Pain/Injury Stated complaint: back pain Time Seen by Provider: 09/27/18 18:34 History of Present Illness HPI narrative: Patient is a 48-year-old male presents emergency department for evaluation of right-sided weakness. Patient states he was here in July diagnosed with diabetes and he told this institution about it but then blood it was not worked up. He states he has been limping and trying to keep his foot up off the ground and so he has been having some back pain. He states that this is been going on constantly since July and has no additional change today except for pain in his low back. States symptoms are moderate, right- sided extremities, associated signs symptoms context and duration as above. Related Data Home Medications Medication Instructions Recorded Confirmed sennosides-docusate sodium [Senna 1 tab PO BID 10/03/18 10/03/18 Plus] Previous Rx's Medication Instructions Recorded insulin aspart U-100 [Novolog 0 unit SUBCUT ACHS #15 ml 08/12/18 U-100 Insulin aspart] insulin detemir U-100 [Levemir 5 unit SUBCUT HS #15 ml 08/12/18 U-100 Insulin] cyclobenzaprine 10 mg PO Q8H PRN #90 tab 10/03/18 oxycodone-acetaminophen 2 tab PO Q4H PRN #15 tab 10/03/18 sennosides [Senna Lax] 17.2 mg PO Q12H PRN #30 tab 10/03/18 Allergies Allergy/AdvReac Type Severity Reaction Status Date / Time No Known Allergies Allergy Verified 09/27/18 18:32 Review of Systems ROS: all other systems reviewed are negative [facility] Surgical History Surgical History No history of previous surgery (Acute) Family History Family History Mother Diabetes Social History Social History Substance History: No History of Abuse Second Hand Smoke Exposure: No Smoking Status: Never smoker How Often Do You Have a Drink Containing Alcohol: Never Recent Travel in [place] within the Last 8 Weeks: No Recent Out of Country Travel within the Last 8 Weeks: No Immunization History Tetanus Immunization: <5 Years Exam Narrative Exam Narrative: GENERAL: Well-developed well-nourished, no obvious distress. SKIN: Focused skin assessment warm/dry. HEAD: Atraumatic. Normocephalic. EYES: Pupils equal and round. No scleral icterus. No injection or drainage. ENT: No nasal bleeding or discharge. Mucous membranes pink and moist. NECK: Trachea midline. No JVD. CARDIOVASCULAR: Regular rate and rhythm. No murmur appreciated. RESPIRATORY: No accessory muscle use. Clear to auscultation. Breath sounds equal bilaterally. GASTROINTESTINAL: Abdomen soft, non-tender, nondistended. Hepatic and splenic margins not palpable. MUSCULOSKELETAL: No obvious deformities. No clubbing. No cyanosis. No edema. NEUROLOGICAL: Patient is alert and awake, certainly has objective weakness on the right sided upper and lower extremities. 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 There is no obvious cranial nerve deficits. PSYCHIATRIC: Appropriate mood and affect; insight and judgment normal. Course Initial Documented Vital Signs Temperature 98.2 F 09/27/18 18:30 Pulse Rate 104 H 09/27/18 18:30 Respiratory Rate 18 09/27/18 18:30 Blood Pressure 159/91 H 09/27/18 18:30 Pulse Oximetry 100 09/27/18 18:30 Last Documented Vital Signs Temperature 97.8 F 10/03/18 12:06 Pulse Rate 80 10/03/18 12:06 Respiratory Rate 10/03/18 12:06 Blood Pressure 139/88 10/03/18 12:05 Pulse Oximetry 100 10/03/18 12:06 Sign Out Sign Out Data: Patient Sign Out occurred on 09/27/18 at 20:34. Patient's care was discussed, and care was transferred from [place] Izquierdo MD to Romana Greenwood MD. Sign Out Comment: Probable remote CVA which has not been worked up. Recommend admission after workup. Last updated by [place] Izquierdo MD at 09/27/18 19:30 Post-Handoff Eval: The patient's case was checked out to me by Dr. Izquierdo. Please see his initial history and physical. The patient presented with reports of right-sided weakness that he reports first noticing in July. The patient had discernible weakness on his neurologic examination concerning for possible stroke. During the course of the patient's emergency department visit, the patient was placed on a monitoring analyst with oximetry and frequent blood pressure monitoring. The patient had IV access obtained and blood work sent for analysis. The patient's diagnostic studies are remarkable for a white count of 9, hemoglobin 13.4, platelets 307 with 76.8 neutrophils, PT PTT within normal limits, chemistry is remarkable for a chloride of 108, GFR of 85, glucose 134, troponin I less than 0.02, TSH within normal limits. The patient had a chest x- ray done that showed no acute cardiopulmonary disease, CT scan of the brain shows no acute abnormality. The patient will be admitted to the hospital for further workup for suspected stroke. The patient was given aspirin 325 mg p.o. x1. The patient was started on maintenance fluids at 70 mL/h. The patient's case including history, pertinent physical examination findings, and laboratory studies were discussed with Dr. Rome. It was agreed that the patient would be admitted to the hospitalist service. The patient's results were discussed with the patient, including the plan of care. I explained that further testing and/ or monitoring is indicated based on the patient's history, examination, and/ or laboratory findings. Therefore, I recommended admission for additional evaluation. The patient expressed understanding and was agreeable with this plan. The patient was admitted to the hospital in guarded condition and sent to a bed under the care of the [facility] service. NIH Stroke Scale NIH Stroke Scale Level of Consciousness: 0-Alert Orientation Questions: 0-Answers both correct Responds to Commands: 0-Both tasks correct Gaze Eye Movement: 0-Horizontal movement WNL Visual [place]: 0-No visual field defect Facial Movement: 0-Normal Motor Functions Arm LEFT: 0-No drift Motor Functions Arm RIGHT: 1-Drift before 10 seconds Motor Functions Leg LEFT: 0-No drift Motor Functions Leg RIGHT: 1-Drift before 5 seconds Limb Ataxia: 0-No ataxia Sensory Loss: 0-No sensory loss Best Language: 0-Normal Articulation: 0-Normal Extinction or Inattention Sensory: 0-Absent Total: 2 Medical Decision Making MDM Narrative Medical decision making narrative: Believe the patient has suffered from a remote stroke, he does not meet stroke alert criteria at this time as the duration has been greater than 24 hours indeed it has been greater than a month. Workup has been ordered and the patient was discussed with Dr. Romana Greenwood at 1900 shift change. She will follow up the workup and disposition the patient appropriately, likely observation for further workup. Medical Screen Exam Complete: Yes Emergency Medical Condition: Yes Lab Data Result diagrams: 10/02/18 08:30 10/02/18 08:30 Lab Results 09/27/18 09/27/18 09/27/18 Range/Units 19:30 19:30 20:12 WBC 9.0 (4.0-11.0) th/mm3 RBC 4.22 L (4.50-5.90) mil/mm3 Hgb 13.4 (13.0-17.0) gm/dL Hct 39.3 (39.0-51.0) % MCV 93.2 (80.0-100.0) fL MCH 31.9 (27.0-34.0) pg MCHC 34.2 (32.0-36.0) % RDW 13.2 (11.6-17.2) % Plt Count 307 (150-450) th/mm3 MPV 8.7 (7.0-11.0) fL Prelim Diff (Auto) Slide review pending Neut % (Auto) 76.8 H (16.0-70.0) % Lymph % (Auto) 17.2 (9.0-44.0) % [place] % (Auto) 5.1 (0.0-8.0) % Eos % (Auto) 0.1 (0.0-4.0) % Baso % (Auto) 0.8 (0.0-2.0) % Neut # (Auto) 6.9 (1.8-7.7) th/mm3 Lymph # (Auto) 1.5 (1.0-4.8) th/mm3 [place] # (Auto) 0.5 (0.0-0.9) th/mm3 Eos # (Auto) 0.0 (0.0-0.4) th/mm3 Baso # (Auto) 0.1 (0.0-0.2) th/mm3 WBC Differential . Diff Scan Auto diff confirmed Differential Comment . PT 11.3 (9.8-11.6) sec INR 1.1 Ratio APTT 31.4 (23.4-31.7) sec Sodium 141 (136-145) meq/L Potassium 3.7 (3.5-5.1) meq/L Chloride 108 H (98-107) meq/L Carbon Dioxide 26.5 (21.0-32.0) meq/L Anion Gap 7 (5-15) meq/L BUN 12 (7-18) mg/dL Creatinine 1.12 (0.60-1.30) mg/dL Estimated GFR 85 L (>89) mL/min POC Glucose (68-110) mg/dl Random Glucose 134 H (74-106) mg/dL Hemoglobin A1c (4.3-6.0) % Calcium 8.9 (8.5-10.1) mg/dL Magnesium 2.1 (1.5-2.5) mg/dL Total Bilirubin 0.5 (0.2-1.0) mg/dL AST 33 (15-37) U/L ALT 29 (12-78) U/L Alkaline Phosphatase 83 (45-117) U/L Troponin I Less than 0.02 L (0.02-0.05) ng/mL Total Protein 7.8 (6.4-8.2) g/dL Albumin 3.6 (3.4-5.0) g/dL Triglycerides (42-150) mg/dL Cholesterol (120-200) mg/dL LDL Cholesterol, Calc (0-99) mg/dL HDL Cholesterol (40.0-60.0) mg/dL Cholesterol/HDL Ratio Ratio Vitamin B12 (193-986) pg/mL TSH 0.752 (0.358-3.740) uIU/mL Urine Color (Yellw/Straw) Urine Clarity (Clear) Urine pH (5.0-8.5) Ur Specific [place] (1.002-1.035) Urine Protein (Neg-Trace) mg/dL Urine Glucose (UA) (Negative) mg/dL Urine Ketones (Negative) mg/dL Urine Occult Blood (Negative) Urine Nitrate (Negative) Urine Bilirubin (Negative) Urine Urobilinogen (Less than 2) mg/dL Ur Leukocyte Esterase (Negative) Urine RBC (0-3) /hpf Urine WBC (0-5) /hpf Ur Squamous Epith Cells (0-5) /hpf Urine Bacteria (None) /hpf Urine Mucus (Occasional) /lpf Micro UA Comment Ur Microscopic Review Urine Culture Comments Nasal Screen MRSA (PCR) (Negative) Blood Type Blood Type Recheck Antibody Screen 09/27/18 09/28/18 09/28/18 Range/Units 23:30 10:11 11:15 WBC (4.0-11.0) th/mm3 RBC (4.50-5.90) mil/mm3 Hgb (13.0-17.0) gm/dL Hct (39.0-51.0) % MCV (80.0-100.0) fL MCH (27.0-34.0) pg MCHC (32.0-36.0) % RDW (11.6-17.2) % Plt Count (150-450) th/mm3 MPV (7.0-11.0) fL Prelim Diff (Auto) Neut % (Auto) (16.0-70.0) % Lymph % (Auto) (9.0-44.0) % [place] % (Auto) (0.0-8.0) % Eos % (Auto) (0.0-4.0) % Baso % (Auto) (0.0-2.0) % Neut # (Auto) (1.8-7.7) th/mm3 Lymph # (Auto) (1.0-4.8) th/mm3 [place] # (Auto) (0.0-0.9) th/mm3 Eos # (Auto) (0.0-0.4) th/mm3 Baso # (Auto) (0.0-0.2) th/mm3 WBC Differential Diff Scan Differential Comment PT (9.8-11.6) sec INR Ratio APTT (23.4-31.7) sec Sodium (136-145) meq/L Potassium (3.5-5.1) meq/L Chloride (98-107) meq/L Carbon Dioxide (21.0-32.0) meq/L Anion Gap (5-15) meq/L BUN (7-18) mg/dL Creatinine (0.60-1.30) mg/dL Estimated GFR (>89) mL/min POC Glucose 112 H (68-110) mg/dl Random Glucose (74-106) mg/dL Hemoglobin A1c (4.3-6.0) % Calcium (8.5-10.1) mg/dL Magnesium (1.5-2.5) mg/dL Total Bilirubin (0.2-1.0) mg/dL AST (15-37) U/L ALT (12-78) U/L Alkaline Phosphatase (45-117) U/L Troponin I (0.02-0.05) ng/mL Total Protein (6.4-8.2) g/dL Albumin (3.4-5.0) g/dL Triglycerides (42-150) mg/dL Cholesterol (120-200) mg/dL LDL Cholesterol, Calc (0-99) mg/dL HDL Cholesterol (40.0-60.0) mg/dL Cholesterol/HDL Ratio Ratio Vitamin B12 556 (193-986) pg/mL TSH (0.358-3.740) uIU/mL Urine Color Yellow (Yellw/Straw) Urine Clarity Hazy H (Clear) Urine pH 6.0 (5.0-8.5) Ur Specific [place] 1.026 (1.002-1.035) Urine Protein 30 H (Neg-Trace) mg/dL Urine Glucose (UA) Negative (Negative) mg/dL Urine Ketones Negative (Negative) mg/dL Urine Occult Blood Negative (Negative) Urine Nitrate Negative (Negative) Urine Bilirubin Negative (Negative) Urine Urobilinogen 0.2 (Less than 2) mg/dL Ur Leukocyte Esterase Small H (Negative) Urine RBC 3 (0-3) /hpf Urine WBC 6 H (0-5) /hpf Ur Squamous Epith Cells <1 (0-5) /hpf Urine Bacteria Rare H (None) /hpf Urine Mucus Moderate H (Occasional) /lpf Micro UA Comment Culture not ind Ur Microscopic Review Not Reportable Urine Culture Comments Culture not ind Nasal Screen MRSA (PCR) (Negative) Blood Type Blood Type Recheck Antibody Screen 09/28/18 09/28/18 09/28/18 Range/Units 12:43 16:06 16:06 WBC (4.0-11.0) th/mm3 RBC (4.50-5.90) mil/mm3 Hgb (13.0-17.0) gm/dL Hct (39.0-51.0) % MCV (80.0-100.0) fL MCH (27.0-34.0) pg MCHC (32.0-36.0) % RDW (11.6-17.2) % Plt Count (150-450) th/mm3 MPV (7.0-11.0) fL Prelim Diff (Auto) Neut % (Auto) (16.0-70.0) % Lymph % (Auto) (9.0-44.0) % [place] % (Auto) (0.0-8.0) % Eos % (Auto) (0.0-4.0) % Baso % (Auto) (0.0-2.0) % Neut # (Auto) (1.8-7.7) th/mm3 Lymph # (Auto) (1.0-4.8) th/mm3 [place] # (Auto) (0.0-0.9) th/mm3 Eos # (Auto) (0.0-0.4) th/mm3 Baso # (Auto) (0.0-0.2) th/mm3 WBC Differential Diff Scan Differential Comment PT (9.8-11.6) sec INR Ratio APTT (23.4-31.7) sec Sodium (136-145) meq/L Potassium (3.5-5.1) meq/L Chloride (98-107) meq/L Carbon Dioxide (21.0-32.0) meq/L Anion Gap (5-15) meq/L BUN (7-18) mg/dL Creatinine (0.60-1.30) mg/dL Estimated GFR (>89) mL/min POC Glucose 93 (68-110) mg/dl Random Glucose (74-106) mg/dL Hemoglobin A1c 8.9 H (4.3-6.0) % Calcium (8.5-10.1) mg/dL Magnesium (1.5-2.5) mg/dL Total Bilirubin (0.2-1.0) mg/dL AST (15-37) U/L ALT (12-78) U/L Alkaline Phosphatase (45-117) U/L Troponin I (0.02-0.05) ng/mL Total Protein (6.4-8.2) g/dL Albumin (3.4-5.0) g/dL Triglycerides (42-150) mg/dL Cholesterol (120-200) mg/dL LDL Cholesterol, Calc (0-99) mg/dL HDL Cholesterol (40.0-60.0) mg/dL Cholesterol/HDL Ratio Ratio Vitamin B12 (193-986) pg/mL TSH (0.358-3.740) uIU/mL Urine Color (Yellw/Straw) Urine Clarity (Clear) Urine pH (5.0-8.5) Ur Specific [place] (1.002-1.035) Urine Protein (Neg-Trace) mg/dL Urine Glucose (UA) (Negative) mg/dL Urine Ketones (Negative) mg/dL Urine Occult Blood (Negative) Urine Nitrate (Negative) Urine Bilirubin (Negative) Urine Urobilinogen (Less than 2) mg/dL Ur Leukocyte Esterase (Negative) Urine RBC (0-3) /hpf Urine WBC (0-5) /hpf Ur Squamous Epith Cells (0-5) /hpf Urine Bacteria (None) /hpf Urine Mucus (Occasional) /lpf Micro UA Comment Ur Microscopic Review Urine Culture Comments Nasal Screen MRSA (PCR) (Negative) Blood Type O Positive Blood Type Recheck Required Antibody Screen Negative 09/28/18 09/28/18 09/28/18 Range/Units 16:08 17:22 20:42 WBC (4.0-11.0) th/mm3 RBC (4.50-5.90) mil/mm3 Hgb (13.0-17.0) gm/dL Hct (39.0-51.0) % MCV (80.0-100.0) fL MCH (27.0-34.0) pg MCHC (32.0-36.0) % RDW (11.6-17.2) % Plt Count (150-450) th/mm3 MPV (7.0-11.0) fL Prelim Diff (Auto) Neut % (Auto) (16.0-70.0) % Lymph % (Auto) (9.0-44.0) % [place] % (Auto) (0.0-8.0) % Eos % (Auto) (0.0-4.0) % Baso % (Auto) (0.0-2.0) % Neut # (Auto) (1.8-7.7) th/mm3 Lymph # (Auto) (1.0-4.8) th/mm3 [place] # (Auto) (0.0-0.9) th/mm3 Eos # (Auto) (0.0-0.4) th/mm3 Baso # (Auto) (0.0-0.2) th/mm3 WBC Differential Diff Scan Differential Comment PT (9.8-11.6) sec INR Ratio APTT (23.4-31.7) sec Sodium (136-145) meq/L Potassium (3.5-5.1) meq/L Chloride (98-107) meq/L Carbon Dioxide (21.0-32.0) meq/L Anion Gap (5-15) meq/L BUN (7-18) mg/dL Creatinine (0.60-1.30) mg/dL Estimated GFR (>89) mL/min POC Glucose 121 H 167 H (68-110) mg/dl Random Glucose (74-106) mg/dL Hemoglobin A1c (4.3-6.0) % Calcium (8.5-10.1) mg/dL Magnesium (1.5-2.5) mg/dL Total Bilirubin (0.2-1.0) mg/dL AST (15-37) U/L ALT (12-78) U/L Alkaline Phosphatase (45-117) U/L Troponin I (0.02-0.05) ng/mL Total Protein (6.4-8.2) g/dL Albumin (3.4-5.0) g/dL Triglycerides (42-150) mg/dL Cholesterol (120-200) mg/dL LDL Cholesterol, Calc (0-99) mg/dL HDL Cholesterol (40.0-60.0) mg/dL Cholesterol/HDL Ratio Ratio Vitamin B12 (193-986) pg/mL TSH (0.358-3.740) uIU/mL Urine Color (Yellw/Straw) Urine Clarity (Clear) Urine pH (5.0-8.5) Ur Specific [place] (1.002-1.035) Urine Protein (Neg-Trace) mg/dL Urine Glucose (UA) (Negative) mg/dL Urine Ketones (Negative) mg/dL Urine Occult Blood (Negative) Urine Nitrate (Negative) Urine Bilirubin (Negative) Urine Urobilinogen (Less than 2) mg/dL Ur Leukocyte Esterase (Negative) Urine RBC (0-3) /hpf Urine WBC (0-5) /hpf Ur Squamous Epith Cells (0-5) /hpf Urine Bacteria (None) /hpf Urine Mucus (Occasional) /lpf Micro UA Comment Ur Microscopic Review Urine Culture Comments Nasal Screen MRSA (PCR) Not detected (Negative) Blood Type Blood Type Recheck Antibody Screen 09/29/18 09/29/18 09/29/18 Range/Units 03:08 06:17 06:17 WBC (4.0-11.0) th/mm3 RBC (4.50-5.90) mil/mm3 Hgb (13.0-17.0) gm/dL Hct (39.0-51.0) % MCV (80.0-100.0) fL MCH (27.0-34.0) pg MCHC (32.0-36.0) % RDW (11.6-17.2) % Plt Count (150-450) th/mm3 MPV (7.0-11.0) fL Prelim Diff (Auto) Neut % (Auto) (16.0-70.0) % Lymph % (Auto) (9.0-44.0) % [place] % (Auto) (0.0-8.0) % Eos % (Auto) (0.0-4.0) % Baso % (Auto) (0.0-2.0) % Neut # (Auto) (1.8-7.7) th/mm3 Lymph # (Auto) (1.0-4.8) th/mm3 [place] # (Auto) (0.0-0.9) th/mm3 Eos # (Auto) (0.0-0.4) th/mm3 Baso # (Auto) (0.0-0.2) th/mm3 WBC Differential Diff Scan Differential Comment PT (9.8-11.6) sec INR Ratio APTT (23.4-31.7) sec Sodium (136-145) meq/L Potassium (3.5-5.1) meq/L Chloride (98-107) meq/L Carbon Dioxide (21.0-32.0) meq/L Anion Gap (5-15) meq/L BUN (7-18) mg/dL Creatinine (0.60-1.30) mg/dL Estimated GFR (>89) mL/min POC Glucose 110 (68-110) mg/dl Random Glucose (74-106) mg/dL Hemoglobin A1c 9.3 H (4.3-6.0) % Calcium (8.5-10.1) mg/dL Magnesium (1.5-2.5) mg/dL Total Bilirubin (0.2-1.0) mg/dL AST (15-37) U/L ALT (12-78) U/L Alkaline Phosphatase (45-117) U/L Troponin I (0.02-0.05) ng/mL Total Protein (6.4-8.2) g/dL Albumin (3.4-5.0) g/dL Triglycerides 61 (42-150) mg/dL Cholesterol 173 (120-200) mg/dL LDL Cholesterol, Calc 115 H (0-99) mg/dL HDL Cholesterol 45.8 (40.0-60.0) mg/dL Cholesterol/HDL Ratio 3.77 Ratio Vitamin B12 (193-986) pg/mL TSH (0.358-3.740) uIU/mL Urine Color (Yellw/Straw) Urine Clarity (Clear) Urine pH (5.0-8.5) Ur Specific [place] (1.002-1.035) Urine Protein (Neg-Trace) mg/dL Urine Glucose (UA) (Negative) mg/dL Urine Ketones (Negative) mg/dL Urine Occult Blood (Negative) Urine Nitrate (Negative) Urine Bilirubin (Negative) Urine Urobilinogen (Less than 2) mg/dL Ur Leukocyte Esterase (Negative) Urine RBC (0-3) /hpf Urine WBC (0-5) /hpf Ur Squamous Epith Cells (0-5) /hpf Urine Bacteria (None) /hpf Urine Mucus (Occasional) /lpf Micro UA Comment Ur Microscopic Review Urine Culture Comments Nasal Screen MRSA (PCR) (Negative) Blood Type Blood Type Recheck Antibody Screen 09/29/18 09/29/18 09/29/18 Range/Units 06:17 06:17 07:03 WBC 8.6 (4.0-11.0) th/mm3 RBC 4.32 L (4.50-5.90) mil/mm3 Hgb 13.6 (13.0-17.0) gm/dL Hct 40.9 (39.0-51.0) % MCV 94.8 (80.0-100.0) fL MCH 31.4 (27.0-34.0) pg MCHC 33.1 (32.0-36.0) % RDW 13.2 (11.6-17.2) % Plt Count 261 (150-450) th/mm3 MPV 8.0 (7.0-11.0) fL Prelim Diff (Auto) Neut % (Auto) (16.0-70.0) % Lymph % (Auto) (9.0-44.0) % [place] % (Auto) (0.0-8.0) % Eos % (Auto) (0.0-4.0) % Baso % (Auto) (0.0-2.0) % Neut # (Auto) (1.8-7.7) th/mm3 Lymph # (Auto) (1.0-4.8) th/mm3 [place] # (Auto) (0.0-0.9) th/mm3 Eos # (Auto) (0.0-0.4) th/mm3 Baso # (Auto) (0.0-0.2) th/mm3 WBC Differential Diff Scan Differential Comment PT (9.8-11.6) sec INR Ratio APTT (23.4-31.7) sec Sodium 141 (136-145) meq/L Potassium 4.5 D (3.5-5.1) meq/L Chloride 109 H (98-107) meq/L Carbon Dioxide 25.2 (21.0-32.0) meq/L Anion Gap 7 (5-15) meq/L BUN 12 (7-18) mg/dL Creatinine 1.00 (0.60-1.30) mg/dL Estimated GFR Greater than 89 (>89) mL/min POC Glucose 99 (68-110) mg/dl Random Glucose 101 (74-106) mg/dL Hemoglobin A1c (4.3-6.0) % Calcium 8.9 (8.5-10.1) mg/dL Magnesium (1.5-2.5) mg/dL Total Bilirubin (0.2-1.0) mg/dL AST (15-37) U/L ALT (12-78) U/L Alkaline Phosphatase (45-117) U/L Troponin I (0.02-0.05) ng/mL Total Protein (6.4-8.2) g/dL Albumin (3.4-5.0) g/dL Triglycerides (42-150) mg/dL Cholesterol (120-200) mg/dL LDL Cholesterol, Calc (0-99) mg/dL HDL Cholesterol (40.0-60.0) mg/dL Cholesterol/HDL Ratio Ratio Vitamin B12 (193-986) pg/mL TSH (0.358-3.740) uIU/mL Urine Color (Yellw/Straw) Urine Clarity (Clear) Urine pH (5.0-8.5) Ur Specific [place] (1.002-1.035) Urine Protein (Neg-Trace) mg/dL Urine Glucose (UA) (Negative) mg/dL Urine Ketones (Negative) mg/dL Urine Occult Blood (Negative) Urine Nitrate (Negative) Urine Bilirubin (Negative) Urine Urobilinogen (Less than 2) mg/dL Ur Leukocyte Esterase (Negative) Urine RBC (0-3) /hpf Urine WBC (0-5) /hpf Ur Squamous Epith Cells (0-5) /hpf Urine Bacteria (None) /hpf Urine Mucus (Occasional) /lpf Micro UA Comment Ur Microscopic Review Urine Culture Comments Nasal Screen MRSA (PCR) (Negative) Blood Type Blood Type Recheck Antibody Screen 09/29/18 09/29/18 09/29/18 Range/Units 14:24 17:59 21:18 WBC (4.0-11.0) th/mm3 RBC (4.50-5.90) mil/mm3 Hgb (13.0-17.0) gm/dL Hct (39.0-51.0) % MCV (80.0-100.0) fL MCH (27.0-34.0) pg MCHC (32.0-36.0) % RDW (11.6-17.2) % Plt Count (150-450) th/mm3 MPV (7.0-11.0) fL Prelim Diff (Auto) Neut % (Auto) (16.0-70.0) % Lymph % (Auto) (9.0-44.0) % [place] % (Auto) (0.0-8.0) % Eos % (Auto) (0.0-4.0) % Baso % (Auto) (0.0-2.0) % Neut # (Auto) (1.8-7.7) th/mm3 Lymph # (Auto) (1.0-4.8) th/mm3 [place] # (Auto) (0.0-0.9) th/mm3 Eos # (Auto) (0.0-0.4) th/mm3 Baso # (Auto) (0.0-0.2) th/mm3 WBC Differential Diff Scan Differential Comment PT (9.8-11.6) sec INR Ratio APTT (23.4-31.7) sec Sodium (136-145) meq/L Potassium (3.5-5.1) meq/L Chloride (98-107) meq/L Carbon Dioxide (21.0-32.0) meq/L Anion Gap (5-15) meq/L BUN (7-18) mg/dL Creatinine (0.60-1.30) mg/dL Estimated GFR (>89) mL/min POC Glucose 143 H 142 H 150 H (68-110) mg/dl Random Glucose (74-106) mg/dL Hemoglobin A1c (4.3-6.0) % Calcium (8.5-10.1) mg/dL Magnesium (1.5-2.5) mg/dL Total Bilirubin (0.2-1.0) mg/dL AST (15-37) U/L ALT (12-78) U/L Alkaline Phosphatase (45-117) U/L Troponin I (0.02-0.05) ng/mL Total Protein (6.4-8.2) g/dL Albumin (3.4-5.0) g/dL Triglycerides (42-150) mg/dL Cholesterol (120-200) mg/dL LDL Cholesterol, Calc (0-99) mg/dL HDL Cholesterol (40.0-60.0) mg/dL Cholesterol/HDL Ratio Ratio Vitamin B12 (193-986) pg/mL TSH (0.358-3.740) uIU/mL Urine Color (Yellw/Straw) Urine Clarity (Clear) Urine pH (5.0-8.5) Ur Specific [place] (1.002-1.035) Urine Protein (Neg-Trace) mg/dL Urine Glucose (UA) (Negative) mg/dL Urine Ketones (Negative) mg/dL Urine Occult Blood (Negative) Urine Nitrate (Negative) Urine Bilirubin (Negative) Urine Urobilinogen (Less than 2) mg/dL Ur Leukocyte Esterase (Negative) Urine RBC (0-3) /hpf Urine WBC (0-5) /hpf Ur Squamous Epith Cells (0-5) /hpf Urine Bacteria (None) /hpf Urine Mucus (Occasional) /lpf Micro UA Comment Ur Microscopic Review Urine Culture Comments Nasal Screen MRSA (PCR) (Negative) Blood Type Blood Type Recheck Antibody Screen 09/30/18 09/30/18 09/30/18 Range/Units 03:30 03:30 03:30 WBC 11.0 (4.0-11.0) th/mm3 RBC 3.68 L (4.50-5.90) mil/mm3 Hgb 11.8 L (13.0-17.0) gm/dL Hct 34.5 L (39.0-51.0) % MCV 93.7 (80.0-100.0) fL MCH 32.2 (27.0-34.0) pg MCHC 34.3 (32.0-36.0) % RDW 13.3 (11.6-17.2) % Plt Count 274 (150-450) th/mm3 MPV 8.4 (7.0-11.0) fL Prelim Diff (Auto) Neut % (Auto) 87.0 H (16.0-70.0) % Lymph % (Auto) 8.7 L (9.0-44.0) % [place] % (Auto) 4.2 (0.0-8.0) % Eos % (Auto) 0.0 (0.0-4.0) % Baso % (Auto) 0.1 (0.0-2.0) % Neut # (Auto) 9.6 H (1.8-7.7) th/mm3 Lymph # (Auto) 0.9 L (1.0-4.8) th/mm3 [place] # (Auto) 0.5 (0.0-0.9) th/mm3 Eos # (Auto) 0.0 (0.0-0.4) th/mm3 Baso # (Auto) 0.0 (0.0-0.2) th/mm3 WBC Differential . Diff Scan Differential Comment Auto diff final PT (9.8-11.6) sec INR Ratio APTT (23.4-31.7) sec Sodium 143 (136-145) meq/L Potassium 4.2 (3.5-5.1) meq/L Chloride 109 H (98-107) meq/L Carbon Dioxide 27.7 (21.0-32.0) meq/L Anion Gap 6 (5-15) meq/L BUN 10 (7-18) mg/dL Creatinine 0.93 (0.60-1.30) mg/dL Estimated GFR Greater than 89 (>89) mL/min POC Glucose 115 H (68-110) mg/dl Random Glucose 125 H (74-106) mg/dL Hemoglobin A1c (4.3-6.0) % Calcium 8.5 (8.5-10.1) mg/dL Magnesium (1.5-2.5) mg/dL Total Bilirubin (0.2-1.0) mg/dL AST (15-37) U/L ALT (12-78) U/L Alkaline Phosphatase (45-117) U/L Troponin I (0.02-0.05) ng/mL Total Protein (6.4-8.2) g/dL Albumin (3.4-5.0) g/dL Triglycerides (42-150) mg/dL Cholesterol (120-200) mg/dL LDL Cholesterol, Calc (0-99) mg/dL HDL Cholesterol (40.0-60.0) mg/dL Cholesterol/HDL Ratio Ratio Vitamin B12 (193-986) pg/mL TSH (0.358-3.740) uIU/mL Urine Color (Yellw/Straw) Urine Clarity (Clear) Urine pH (5.0-8.5) Ur Specific [place] (1.002-1.035) Urine Protein (Neg-Trace) mg/dL Urine Glucose (UA) (Negative) mg/dL Urine Ketones (Negative) mg/dL Urine Occult Blood (Negative) Urine Nitrate (Negative) Urine Bilirubin (Negative) Urine Urobilinogen (Less than 2) mg/dL Ur Leukocyte Esterase (Negative) Urine RBC (0-3) /hpf Urine WBC (0-5) /hpf Ur Squamous Epith Cells (0-5) /hpf Urine Bacteria (None) /hpf Urine Mucus (Occasional) /lpf Micro UA Comment Ur Microscopic Review Urine Culture Comments Nasal Screen MRSA (PCR) (Negative) Blood Type Blood Type Recheck Antibody Screen 09/30/18 09/30/18 09/30/18 Range/Units 13:16 17:11 20:54 WBC (4.0-11.0) th/mm3 RBC (4.50-5.90) mil/mm3 Hgb (13.0-17.0) gm/dL Hct (39.0-51.0) % MCV (80.0-100.0) fL MCH (27.0-34.0) pg MCHC (32.0-36.0) % RDW (11.6-17.2) % Plt Count (150-450) th/mm3 MPV (7.0-11.0) fL Prelim Diff (Auto) Neut % (Auto) (16.0-70.0) % Lymph % (Auto) (9.0-44.0) % [place] % (Auto) (0.0-8.0) % Eos % (Auto) (0.0-4.0) % Baso % (Auto) (0.0-2.0) % Neut # (Auto) (1.8-7.7) th/mm3 Lymph # (Auto) (1.0-4.8) th/mm3 [place] # (Auto) (0.0-0.9) th/mm3 Eos # (Auto) (0.0-0.4) th/mm3 Baso # (Auto) (0.0-0.2) th/mm3 WBC Differential Diff Scan Differential Comment PT (9.8-11.6) sec INR Ratio APTT (23.4-31.7) sec Sodium (136-145) meq/L Potassium (3.5-5.1) meq/L Chloride (98-107) meq/L Carbon Dioxide (21.0-32.0) meq/L Anion Gap (5-15) meq/L BUN (7-18) mg/dL Creatinine (0.60-1.30) mg/dL Estimated GFR (>89) mL/min POC Glucose 95 111 H 112 H (68-110) mg/dl Random Glucose (74-106) mg/dL Hemoglobin A1c (4.3-6.0) % Calcium (8.5-10.1) mg/dL Magnesium (1.5-2.5) mg/dL Total Bilirubin (0.2-1.0) mg/dL AST (15-37) U/L ALT (12-78) U/L Alkaline Phosphatase (45-117) U/L Troponin I (0.02-0.05) ng/mL Total Protein (6.4-8.2) g/dL Albumin (3.4-5.0) g/dL Triglycerides (42-150) mg/dL Cholesterol (120-200) mg/dL LDL Cholesterol, Calc (0-99) mg/dL HDL Cholesterol (40.0-60.0) mg/dL Cholesterol/HDL Ratio Ratio Vitamin B12 (193-986) pg/mL TSH (0.358-3.740) uIU/mL Urine Color (Yellw/Straw) Urine Clarity (Clear) Urine pH (5.0-8.5) Ur Specific [place] (1.002-1.035) Urine Protein (Neg-Trace) mg/dL Urine Glucose (UA) (Negative) mg/dL Urine Ketones (Negative) mg/dL Urine Occult Blood (Negative) Urine Nitrate (Negative) Urine Bilirubin (Negative) Urine Urobilinogen (Less than 2) mg/dL Ur Leukocyte Esterase (Negative) Urine RBC (0-3) /hpf Urine WBC (0-5) /hpf Ur Squamous Epith Cells (0-5) /hpf Urine Bacteria (None) /hpf Urine Mucus (Occasional) /lpf Micro UA Comment Ur Microscopic Review Urine Culture Comments Nasal Screen MRSA (PCR) (Negative) Blood Type Blood Type Recheck Antibody Screen 10/01/18 10/01/18 10/01/18 Range/Units 04:45 09:25 12:40 WBC (4.0-11.0) th/mm3 RBC (4.50-5.90) mil/mm3 Hgb (13.0-17.0) gm/dL Hct (39.0-51.0) % MCV (80.0-100.0) fL MCH (27.0-34.0) pg MCHC (32.0-36.0) % RDW (11.6-17.2) % Plt Count (150-450) th/mm3 MPV (7.0-11.0) fL Prelim Diff (Auto) Neut % (Auto) (16.0-70.0) % Lymph % (Auto) (9.0-44.0) % [place] % (Auto) (0.0-8.0) % Eos % (Auto) (0.0-4.0) % Baso % (Auto) (0.0-2.0) % Neut # (Auto) (1.8-7.7) th/mm3 Lymph # (Auto) (1.0-4.8) th/mm3 [place] # (Auto) (0.0-0.9) th/mm3 Eos # (Auto) (0.0-0.4) th/mm3 Baso # (Auto) (0.0-0.2) th/mm3 WBC Differential Diff Scan Differential Comment PT (9.8-11.6) sec INR Ratio APTT (23.4-31.7) sec Sodium (136-145) meq/L Potassium (3.5-5.1) meq/L Chloride (98-107) meq/L Carbon Dioxide (21.0-32.0) meq/L Anion Gap (5-15) meq/L BUN (7-18) mg/dL Creatinine (0.60-1.30) mg/dL Estimated GFR (>89) mL/min POC Glucose 125 H 119 H 106 (68-110) mg/dl Random Glucose (74-106) mg/dL Hemoglobin A1c (4.3-6.0) % Calcium (8.5-10.1) mg/dL Magnesium (1.5-2.5) mg/dL Total Bilirubin (0.2-1.0) mg/dL AST (15-37) U/L ALT (12-78) U/L Alkaline Phosphatase (45-117) U/L Troponin I (0.02-0.05) ng/mL Total Protein (6.4-8.2) g/dL Albumin (3.4-5.0) g/dL Triglycerides (42-150) mg/dL Cholesterol (120-200) mg/dL LDL Cholesterol, Calc (0-99) mg/dL HDL Cholesterol (40.0-60.0) mg/dL Cholesterol/HDL Ratio Ratio Vitamin B12 (193-986) pg/mL TSH (0.358-3.740) uIU/mL Urine Color (Yellw/Straw) Urine Clarity (Clear) Urine pH (5.0-8.5) Ur Specific [place] (1.002-1.035) Urine Protein (Neg-Trace) mg/dL Urine Glucose (UA) (Negative) mg/dL Urine Ketones (Negative) mg/dL Urine Occult Blood (Negative) Urine Nitrate (Negative) Urine Bilirubin (Negative) Urine Urobilinogen (Less than 2) mg/dL Ur Leukocyte Esterase (Negative) Urine RBC (0-3) /hpf Urine WBC (0-5) /hpf Ur Squamous Epith Cells (0-5) /hpf Urine Bacteria (None) /hpf Urine Mucus (Occasional) /lpf Micro UA Comment Ur Microscopic Review Urine Culture Comments Nasal Screen MRSA (PCR) (Negative) Blood Type Blood Type Recheck Antibody Screen 10/01/18 10/01/18 10/02/18 Range/Units 18:05 21:02 08:30 WBC 9.4 (4.0-11.0) th/mm3 RBC 3.84 L (4.50-5.90) mil/mm3 Hgb 12.2 L (13.0-17.0) gm/dL Hct 35.4 L (39.0-51.0) % MCV 92.2 (80.0-100.0) fL MCH 31.7 (27.0-34.0) pg MCHC 34.4 (32.0-36.0) % RDW 13.2 (11.6-17.2) % Plt Count 288 (150-450) th/mm3 MPV 8.7 (7.0-11.0) fL Prelim Diff (Auto) Neut % (Auto) 80.1 H (16.0-70.0) % Lymph % (Auto) 14.1 (9.0-44.0) % [place] % (Auto) 5.3 (0.0-8.0) % Eos % (Auto) 0.0 (0.0-4.0) % Baso % (Auto) 0.5 (0.0-2.0) % Neut # (Auto) 7.5 (1.8-7.7) th/mm3 Lymph # (Auto) 1.3 (1.0-4.8) th/mm3 [place] # (Auto) 0.5 (0.0-0.9) th/mm3 Eos # (Auto) 0.0 (0.0-0.4) th/mm3 Baso # (Auto) 0.1 (0.0-0.2) th/mm3 WBC Differential . Diff Scan Differential Comment Auto diff final PT (9.8-11.6) sec INR Ratio APTT (23.4-31.7) sec Sodium (136-145) meq/L Potassium (3.5-5.1) meq/L Chloride (98-107) meq/L Carbon Dioxide (21.0-32.0) meq/L Anion Gap (5-15) meq/L BUN (7-18) mg/dL Creatinine (0.60-1.30) mg/dL Estimated GFR (>89) mL/min POC Glucose 120 H 153 H (68-110) mg/dl Random Glucose (74-106) mg/dL Hemoglobin A1c (4.3-6.0) % Calcium (8.5-10.1) mg/dL Magnesium (1.5-2.5) mg/dL Total Bilirubin (0.2-1.0) mg/dL AST (15-37) U/L ALT (12-78) U/L Alkaline Phosphatase (45-117) U/L Troponin I (0.02-0.05) ng/mL Total Protein (6.4-8.2) g/dL Albumin (3.4-5.0) g/dL Triglycerides (42-150) mg/dL Cholesterol (120-200) mg/dL LDL Cholesterol, Calc (0-99) mg/dL HDL Cholesterol (40.0-60.0) mg/dL Cholesterol/HDL Ratio Ratio Vitamin B12 (193-986) pg/mL TSH (0.358-3.740) uIU/mL Urine Color (Yellw/Straw) Urine Clarity (Clear) Urine pH (5.0-8.5) Ur Specific [place] (1.002-1.035) Urine Protein (Neg-Trace) mg/dL Urine Glucose (UA) (Negative) mg/dL Urine Ketones (Negative) mg/dL Urine Occult Blood (Negative) Urine Nitrate (Negative) Urine Bilirubin (Negative) Urine Urobilinogen (Less than 2) mg/dL Ur Leukocyte Esterase (Negative) Urine RBC (0-3) /hpf Urine WBC (0-5) /hpf Ur Squamous Epith Cells (0-5) /hpf Urine Bacteria (None) /hpf Urine Mucus (Occasional) /lpf Micro UA Comment Ur Microscopic Review Urine Culture Comments Nasal Screen MRSA (PCR) (Negative) Blood Type Blood Type Recheck Antibody Screen 10/02/18 10/02/18 10/02/18 Range/Units 08:30 08:42 12:12 WBC (4.0-11.0) th/mm3 RBC (4.50-5.90) mil/mm3 Hgb (13.0-17.0) gm/dL Hct (39.0-51.0) % MCV (80.0-100.0) fL MCH (27.0-34.0) pg MCHC (32.0-36.0) % RDW (11.6-17.2) % Plt Count (150-450) th/mm3 MPV (7.0-11.0) fL Prelim Diff (Auto) Neut % (Auto) (16.0-70.0) % Lymph % (Auto) (9.0-44.0) % [place] % (Auto) (0.0-8.0) % Eos % (Auto) (0.0-4.0) % Baso % (Auto) (0.0-2.0) % Neut # (Auto) (1.8-7.7) th/mm3 Lymph # (Auto) (1.0-4.8) th/mm3 [place] # (Auto) (0.0-0.9) th/mm3 Eos # (Auto) (0.0-0.4) th/mm3 Baso # (Auto) (0.0-0.2) th/mm3 WBC Differential Diff Scan Differential Comment PT (9.8-11.6) sec INR Ratio APTT (23.4-31.7) sec Sodium 140 (136-145) meq/L Potassium 4.0 (3.5-5.1) meq/L Chloride 106 (98-107) meq/L Carbon Dioxide 28.6 (21.0-32.0) meq/L Anion Gap 5 (5-15) meq/L BUN 18 (7-18) mg/dL Creatinine 0.93 (0.60-1.30) mg/dL Estimated GFR Greater than 89 (>89) mL/min POC Glucose 126 H 116 H (68-110) mg/dl Random Glucose 114 H (74-106) mg/dL Hemoglobin A1c (4.3-6.0) % Calcium 8.7 (8.5-10.1) mg/dL Magnesium (1.5-2.5) mg/dL Total Bilirubin 0.3 (0.2-1.0) mg/dL AST 25 (15-37) U/L ALT 33 (12-78) U/L Alkaline Phosphatase 64 (45-117) U/L Troponin I (0.02-0.05) ng/mL Total Protein 7.0 D (6.4-8.2) g/dL Albumin 3.0 L (3.4-5.0) g/dL Triglycerides (42-150) mg/dL Cholesterol (120-200) mg/dL LDL Cholesterol, Calc (0-99) mg/dL HDL Cholesterol (40.0-60.0) mg/dL Cholesterol/HDL Ratio Ratio Vitamin B12 (193-986) pg/mL TSH (0.358-3.740) uIU/mL Urine Color (Yellw/Straw) Urine Clarity (Clear) Urine pH (5.0-8.5) Ur Specific [place] (1.002-1.035) Urine Protein (Neg-Trace) mg/dL Urine Glucose (UA) (Negative) mg/dL Urine Ketones (Negative) mg/dL Urine Occult Blood (Negative) Urine Nitrate (Negative) Urine Bilirubin (Negative) Urine Urobilinogen (Less than 2) mg/dL Ur Leukocyte Esterase (Negative) Urine RBC (0-3) /hpf Urine WBC (0-5) /hpf Ur Squamous Epith Cells (0-5) /hpf Urine Bacteria (None) /hpf Urine Mucus (Occasional) /lpf Micro UA Comment Ur Microscopic Review Urine Culture Comments Nasal Screen MRSA (PCR) (Negative) Blood Type Blood Type Recheck Antibody Screen 10/02/18 10/02/18 10/03/18 Range/Units 17:43 23:15 07:02 WBC (4.0-11.0) th/mm3 RBC (4.50-5.90) mil/mm3 Hgb (13.0-17.0) gm/dL Hct (39.0-51.0) % MCV (80.0-100.0) fL MCH (27.0-34.0) pg MCHC (32.0-36.0) % RDW (11.6-17.2) % Plt Count (150-450) th/mm3 MPV (7.0-11.0) fL Prelim Diff (Auto) Neut % (Auto) (16.0-70.0) % Lymph % (Auto) (9.0-44.0) % [place] % (Auto) (0.0-8.0) % Eos % (Auto) (0.0-4.0) % Baso % (Auto) (0.0-2.0) % Neut # (Auto) (1.8-7.7) th/mm3 Lymph # (Auto) (1.0-4.8) th/mm3 [place] # (Auto) (0.0-0.9) th/mm3 Eos # (Auto) (0.0-0.4) th/mm3 Baso # (Auto) (0.0-0.2) th/mm3 WBC Differential Diff Scan Differential Comment PT (9.8-11.6) sec INR Ratio APTT (23.4-31.7) sec Sodium (136-145) meq/L Potassium (3.5-5.1) meq/L Chloride (98-107) meq/L Carbon Dioxide (21.0-32.0) meq/L Anion Gap (5-15) meq/L BUN (7-18) mg/dL Creatinine (0.60-1.30) mg/dL Estimated GFR (>89) mL/min POC Glucose 112 H 121 H 120 H (68-110) mg/dl Random Glucose (74-106) mg/dL Hemoglobin A1c (4.3-6.0) % Calcium (8.5-10.1) mg/dL Magnesium (1.5-2.5) mg/dL Total Bilirubin (0.2-1.0) mg/dL AST (15-37) U/L ALT (12-78) U/L Alkaline Phosphatase (45-117) U/L Troponin I (0.02-0.05) ng/mL Total Protein (6.4-8.2) g/dL Albumin (3.4-5.0) g/dL Triglycerides (42-150) mg/dL Cholesterol (120-200) mg/dL LDL Cholesterol, Calc (0-99) mg/dL HDL Cholesterol (40.0-60.0) mg/dL Cholesterol/HDL Ratio Ratio Vitamin B12 (193-986) pg/mL TSH (0.358-3.740) uIU/mL Urine Color (Yellw/Straw) Urine Clarity (Clear) Urine pH (5.0-8.5) Ur Specific [place] (1.002-1.035) Urine Protein (Neg-Trace) mg/dL Urine Glucose (UA) (Negative) mg/dL Urine Ketones (Negative) mg/dL Urine Occult Blood (Negative) Urine Nitrate (Negative) Urine Bilirubin (Negative) Urine Urobilinogen (Less than 2) mg/dL Ur Leukocyte Esterase (Negative) Urine RBC (0-3) /hpf Urine WBC (0-5) /hpf Ur Squamous Epith Cells (0-5) /hpf Urine Bacteria (None) /hpf Urine Mucus (Occasional) /lpf Micro UA Comment Ur Microscopic Review Urine Culture Comments Nasal Screen MRSA (PCR) (Negative) Blood Type Blood Type Recheck Antibody Screen 10/03/18 10/03/18 Range/Units 08:50 12:00 WBC (4.0-11.0) th/mm3 RBC (4.50-5.90) mil/mm3 Hgb (13.0-17.0) gm/dL Hct (39.0-51.0) % MCV (80.0-100.0) fL MCH (27.0-34.0) pg MCHC (32.0-36.0) % RDW (11.6-17.2) % Plt Count (150-450) th/mm3 MPV (7.0-11.0) fL Prelim Diff (Auto) Neut % (Auto) (16.0-70.0) % Lymph % (Auto) (9.0-44.0) % [place] % (Auto) (0.0-8.0) % Eos % (Auto) (0.0-4.0) % Baso % (Auto) (0.0-2.0) % Neut # (Auto) (1.8-7.7) th/mm3 Lymph # (Auto) (1.0-4.8) th/mm3 [place] # (Auto) (0.0-0.9) th/mm3 Eos # (Auto) (0.0-0.4) th/mm3 Baso # (Auto) (0.0-0.2) th/mm3 WBC Differential Diff Scan Differential Comment PT (9.8-11.6) sec INR Ratio APTT (23.4-31.7) sec Sodium (136-145) meq/L Potassium (3.5-5.1) meq/L Chloride (98-107) meq/L Carbon Dioxide (21.0-32.0) meq/L Anion Gap (5-15) meq/L BUN (7-18) mg/dL Creatinine (0.60-1.30) mg/dL Estimated GFR (>89) mL/min POC Glucose 118 H 171 H (68-110) mg/dl Random Glucose (74-106) mg/dL Hemoglobin A1c (4.3-6.0) % Calcium (8.5-10.1) mg/dL Magnesium (1.5-2.5) mg/dL Total Bilirubin (0.2-1.0) mg/dL AST (15-37) U/L ALT (12-78) U/L Alkaline Phosphatase (45-117) U/L Troponin I (0.02-0.05) ng/mL Total Protein (6.4-8.2) g/dL Albumin (3.4-5.0) g/dL Triglycerides (42-150) mg/dL Cholesterol (120-200) mg/dL LDL Cholesterol, Calc (0-99) mg/dL HDL Cholesterol (40.0-60.0) mg/dL Cholesterol/HDL Ratio Ratio Vitamin B12 (193-986) pg/mL TSH (0.358-3.740) uIU/mL Urine Color (Yellw/Straw) Urine Clarity (Clear) Urine pH (5.0-8.5) Ur Specific [place] (1.002-1.035) Urine Protein (Neg-Trace) mg/dL Urine Glucose (UA) (Negative) mg/dL Urine Ketones (Negative) mg/dL Urine Occult Blood (Negative) Urine Nitrate (Negative) Urine Bilirubin (Negative) Urine Urobilinogen (Less than 2) mg/dL Ur Leukocyte Esterase (Negative) Urine RBC (0-3) /hpf Urine WBC (0-5) /hpf Ur Squamous Epith Cells (0-5) /hpf Urine Bacteria (None) /hpf Urine Mucus (Occasional) /lpf Micro UA Comment Ur Microscopic Review Urine Culture Comments Nasal Screen MRSA (PCR) (Negative) Blood Type Blood Type Recheck Antibody Screen Imaging Data Radiologist's impression: Chest X-Ray 09/27/18 18:51 CONCLUSION: The lungs are clear. Head CT 09/27/18 18:51 CONCLUSION: 1. Negative CT Head non contrast. . Carotid Doppler Study 09/28/18 00:00 CONCLUSION: Negative for hemodynamically significant stenosis Cervical Spine MRI 09/28/18 00:00 CONCLUSION: 1. Severe spinal stenosis from mid C2 to mid C5 with edema in the cord and severe deformity of the cord. Head MRI 09/28/18 00:00 CONCLUSION: 1. Negative MRI of the brain. Head MRA 09/28/18 00:00 CONCLUSION: 1. Negative MRA of the brain Thoracic Spine MRI 09/28/18 00:00 CONCLUSION: 1. Cord compression and signal abnormality within the narrowed cord at the T7- 8 level. The impression on the cord is due to a combination of central disc/ osteophyte complex, and ossification of the posterior longitudinal ligament. 2. Small anterior epidural impressions at T5-6 and T8-9 without evidence of cord compression. Cervical Spine CT 09/28/18 00:48 CONCLUSION: Severe upper cervical canal stenosis and cord compression related to OPLL Lumbar Spine CT 09/28/18 00:48 CONCLUSION: 1. No acute bony findings. 2. Disc disease most notably at L5-S1 with asymmetrically left-sided foraminal stenosis present. 3. No significant lumbar canal compromise. Thoracic Spine CT 09/28/18 00:48 CONCLUSION: Significant thoracic canal stenosis at the T7-8 disc space level related to presumed exuberant ligamentous ossification in the dorsal canal. Less pronounced similar changes at multiple additional levels Cervical Spine MRI 09/29/18 00:00 CONCLUSION: 1. Postsurgical changes with fusion posteriorly and bilateral laminectomies C2- C6. 2. T2 signal abnormality within the cord on the left at C3-4 likely myelomalacia. Cervical Spine X-Ray 09/29/18 00:00 CONCLUSION: Intraoperative images. Discharge Plan Discharge Disposition Patient Disposition: ED Admit(ED Internal Use Only) Discharge Condition Condition: Good Discharge Order Discharge Orders: Discharge Order (Routine); Ordered 10/03/18 Ordered By: Alisha Monson ED Use Only Admit Order (Routine); Ordered 09/27/18 Ordered By: Rmoana Greenwood Discharge Details Anticipated Discharge Date: 10/03/18 Diagnosis: Stroke Physicians Team ED Provider: Romana Greenwood Primary Care Provider: Primary Care Physici,No Attending Provider: Alisha Monson Other Providers: Joe Olivia ; Dimitri Jacobs ; Dayanna Choudhury Status ED Status: Left Department Discharge Information Discharge Date/Time: 09/28/18 00:45
--- NOTE | 2018-09-27 19:24 | CT ---
EXAM DATE: 09/27/2018 7:21 PM EST AGE/SEX: 48 years / Male INDICATIONS: Hand, back and leg pain. CLINICAL DATA: This is the patient's initial encounter. Patient reports that signs and symptoms have been present for 1 day and indicates a pain score of 5/10. MEDICAL/SURGICAL HISTORY: None. None. RADIATION DOSE: 46.44 CTDI (mGy) COMPARISON: No prior exams available for comparison. TECHNIQUE: CT of the head without contrast. Using automated exposure control and adjustment of the mA and/or kV according to patient size, radiation dose was kept as low as reasonably achievable to ob tain optimal diagnostic quality images. DICOM format image data is available electronically for revi ew and comparison. FINDINGS: Cerebrum: The ventricles are normal for age. No evidence of midline shift, mass lesion, hemorrhage or acute infarction. No extraaxial fluid collections are seen. Posterior Fossa: The cerebellum and brainstem are intact. The 4th ventricle is midline. The cerebe llopontine angle is unremarkable. Extracranial: The visualized portion of the orbits is intact. Soft tissue swelling in the subcutaneo us tissues overlying the occipital region bilaterally Skull: The calvaria is intact. No evidence of skull fracture. CONCLUSION: 1. Negative CT Head non contrast. . Electronically signed by: Mati Avila MD Board Certified Radiologist 09/27/2018 7:23 PM EST
[2018-09-27 19:43] LABS: Baso # (Auto) 0.1 th/mm3 (0.0-0.2); Baso % (Auto) 0.8 % (0.0-2.0); Eos % (Auto) 0.1 % (0.0-4.0); Hematocrit 39.3 % (39.0-51.0); Hemoglobin 13.4 gm/dL (13.0-17.0); Lymph # (Auto) 1.5 th/mm3 (1.0-4.8); Lymph % (Auto) 17.2 % (9.0-44.0); Mean Corpuscular HGB Conc 34.2 % (32.0-36.0); Mean Corpuscular Hemoglobin 31.9 pg (27.0-34.0); Mean Corpuscular Volume 93.2 fL (80.0-100.0); Mean Platelet Volume 8.7 fL (7.0-11.0); Mono # (Auto) 0.5 th/mm3 (0.0-0.9); Mono % (Auto) 5.1 % (0.0-8.0); Neut # (Auto) 6.9 th/mm3 (1.8-7.7); Neut % (Auto) 76.8 % (16.0-70.0); Platelet Count 307 th/mm3 (150-450); Red Blood Count 4.22 mil/mm3 (4.50-5.90); Red Cell Distribution Width 13.2 % (11.6-17.2)
[2018-09-27 19:56] LABS: Albumin 3.6 g/dL (3.4-5.0); Anion Gap 7 meq/L (5-15); Aspartate Aminotransferase 33 U/L (15-37); Blood Urea Nitrogen 12 mg/dL (7-18); Calcium 8.9 mg/dL (8.5-10.1); Carbon Dioxide 26.5 meq/L (21.0-32.0); Chloride 108 meq/L (98-107); Glomerular Filtration Rate 85 mL/min (>89); Glucose,Random 134 mg/dL (74-106); Magnesium 2.1 mg/dL (1.5-2.5); Potassium 3.7 meq/L (3.5-5.1); Sodium 141 meq/L (136-145)
[2018-09-27 19:57] LABS: Alanine Aminotransferase 29 U/L (12-78)
[2018-09-27 20:07] LABS: Alkaline Phosphatase 83 U/L (45-117); Thyroid Stimulating Hormone 0.752 uIU/mL (0.358-3.740); Total Protein 7.8 g/dL (6.4-8.2)
[2018-09-27 20:34] LABS: Activated Partial Thrombo Time 31.4 sec (23.4-31.7); INR 1.1 Ratio; Prothrombin Time 11.3 sec (9.8-11.6)
[2018-09-27] MEDS ORDERED: Aspirin 325 MG Tablet PO ONE (22:40)
[2018-09-27] MEDS ORDERED: Sod Chloride 0.9% Inj 1,000 ML IV.CONT SCH (22:45)
[2018-09-28] LABS: Bacteria,Urine Rare /hpf; Bilirubin,Urine Negative (Negative); Clarity,Urine Hazy (Clear); Color,Urine Yellow (Yellw/Straw); Glucose,Urine (UA) Negative (Negative); Leukocyte Esterase,Urine Small (Negative); Mucus,Urine Moderate /lpf (Occasional); Nitrite,Urine Negative (Negative); Specific Gravity,Urine 1.026 (1.002-1.035); Squamous Epithelial Cell,Urine <1 /hpf (0-5)
[2018-09-28 00:01] LABS: Urobilinogen,Urine 0.2 mg/dL (Less than 2)
[2018-09-28] MEDS ORDERED: Dextrose 50% in Water 50 ML Vial IV.PUSH PRN (00:04)
[2018-09-28] MEDS ORDERED: Insulin NovoLOG Aspart Correctional Sugar Inj SQ PRN (00:04)
--- NOTE | 2018-09-28 00:16 | P.HPIM ---
History of Present Illness Primary Care Physician: No Primary Care Physician 48-year-old male with a past medical history significant for diabetes mellitus presents to the emergency department for the evaluation weakness. The patient was hospitalized in the end of July for DKA and was diagnosed with diabetes at that time. He states that during that hospitalization he noted right sided weakness that had begun earlier in the month. He states that he was able to ambulate until midway through August when his right upper and lower extremity weakness began to worsen. He states he now has difficulty walking. He complains of right upper extremity heaviness and that his hand "just will not work right." He states his right lower extremity is weak and occasionally painful. He denies any chest pain or shortness of breath. No nausea/vomiting. No fever/chills. Review of Systems Review of Systems: all other systems reviewed are negative [facility] Medical History Medical History Diabetes mellitus (Acute) Surgical History Surgical History No history of previous surgery (Acute) Family History Family History Mother Diabetes Social History Social History Substance History: No History of Abuse Second Hand Smoke Exposure: No Smoking Status: Never smoker How Often Do You Have a Drink Containing Alcohol: Never Recent Travel in [facility] within the Last 8 Weeks: No Recent Out of Country Travel within the Last 8 Weeks: No Immunization History Tetanus Immunization: <5 Years Medications and Allergies Allergies Allergy/AdvReac Type Severity Reaction Status Date / Time No Known Allergies Allergy Verified 09/27/18 18:32 Active Medications: Active Medications Aspirin (Aspirin) 325 mg PO DAILY [facility] Dextrose (D50w Vial) 50 ml IV.PUSH UNSCH PRN PRN Reason: per Hypoglycemic Protocol Glucagon (Glucagon Inj) 1 mg OTHER UNSCH PRN PRN Reason: per Hypoglycemic Protocol Sodium Chloride (Ns Inj) 1,000 mls @ 70 mls/hr IV.CONT .[id number] RICHARD Last Admin: 09/27/18 23:23 Dose: 70 mls/hr Sodium Chloride (Ns Inj) 1,000 mls @ 70 mls/hr IV.CONT .[id number] [facility] Insulin Aspart (Novolog Insulin Correctional Sugar Inj) 0 unit SQ ACHS PRN; Protocol PRN Reason: Per Protocol Sodium Chloride (Ns Flush) 2 ml IV.FLUSH PRN PRN PRN Reason: FLUSH AFTER USING IV ACCESS Physical Exam Vital signs: Vital Signs 09/27/18 18:30 09/27/18 19:37 09/27/18 23:00 Temperature 98.2 F Pulse Rate 104 H 76 Respiratory Rate 18 16 Blood Pressure 159/91 H 156/100 H Pulse Oximetry 100 100 100 Intake & Output 09/27/18 09/27/18 09/28/18 06:59 18:59 06:59 Weight 102.058 kg Narrative: Gen.: No acute distress Head: Normocephalic. Atraumatic. EENT: Pupils equal round and reactive to light. Nose without drainage. Airway intact. Throat without injection. Cardiovascular: Regular rate and rhythm. No murmurs, rubs or gallops. Respiratory: Lungs clear to auscultation bilaterally. No wheezes or rhonchi. Abdomen: Soft, nontender, nondistended. No peritoneal signs. Musculoskeletal: No gross deformities. No edema. Skin: No obvious rashes or erythema. Neuro: Alert and oriented x4. 3/5 right sided hand admin dir strength. 4/5 right upper extremity strength. 2/5 right lower extremity strength with 4/5 plantar flexion and extension strength. Sensation intact. Results Labs CBC & Chem 7: 09/27/18 19:30 09/27/18 19:30 Imaging Impressions Chest X-Ray 09/27/18 18:51 CONCLUSION: The lungs are clear. Head CT 09/27/18 18:51 CONCLUSION: 1. Negative CT Head non contrast. . Caprini VTE Risk Assessment Caprini VTE Risk Assessment: No/Low Risk (score <= 1) Caprini Risk Assessment Model: Point Value = 1 Point Value = 2 Point Value = 3 Point Value = 5 Age 41-60 Minor surgery BMI > 25 kg/m2 Swollen legs Varicose veins or History of unexplained or recurrent spontaneous Oral contraceptives or hormone replacement Sepsis (< 1 month) Serious lung disease, including pneumonia (< 1 month) Abnormal pulmonary function Acute myocardial infarction Congestive heart failure (< 1 month) History of inflammatory bowel disease Medical patient at bed rest Age 61-74 Arthroscopic surgery Major open surgery (> 45 min) Laparoscopic surgery (> 45 min) Malignancy Confined to bed (> 72 hours) Immobilizing plaster cast Central venous access Age >= 75 History of VTE Family history of VTE Factor V Leiden Prothrombin [id number] Lupus anticoagulant Anticardiolipin antibodies Elevated serum homocysteine Heparin-induced thrombocytopenia Other congenital or acquired thrombophilia Stroke (< 1 month) Elective arthroplasty Hip, pelvis, or leg fracture Acute spinal cord injury (< 1 month) Prophylaxis Regimen: Total Risk Factor Score Risk Level Prophylaxis Regimen 0-1 Low Early ambulation 2 Moderate Order ONE of the following: *Sequential Compression Device (SCD) *Heparin 5000 units SQ BID 3-4 Higher Order ONE of the following medications: *Heparin 5000 units SQ TID *Enoxaparin/Lovenox 40 mg SQ daily (WT < 150 kg, CrCl > 30 mL/min) *Enoxaparin/Lovenox 30 mg SQ daily (WT < 150 kg, CrCl > 10-29 mL/min) *Enoxaparin/Lovenox 30 mg SQ BID (WT < 150 kg, CrCl > 30 mL/min) AND/OR *Sequential Compression Device (SCD) 5 or more Highest Order ONE of the following medications: *Heparin 5000 units SQ TID (Preferred with Epidurals) *Enoxaparin/Lovenox 40 mg SQ daily (WT < 150 kg, CrCl > 30 mL/min) *Enoxaparin/Lovenox 30 mg SQ daily (WT < 150 kg, CrCl > 10-29 mL/min) *Enoxaparin/Lovenox 30 mg SQ BID (WT < 150 kg, CrCl > 30 mL/min) AND *Sequential Compression Device (SCD) Assessment and Plan Plan Assessment/plan: 1. Right-sided weakness Head CT negative for acute process MRI/MRA pending Carotid ultrasound pending Echo pending Aspirin Neurology consulted, appreciate assistance Physical therapy 2. Diabetes mellitus Sliding scale insulin Monitor blood glucose Resume home regimen when tolerating p.o. FEN N.p.o. Electrolytes: Monitor and replete as needed NS at 70 cc/hour
--- NOTE | 2018-09-28 02:37 | CT ---
EXAM DATE: 09/28/2018 2:23 AM EST AGE/SEX: 48 years / Male INDICATIONS: Right sided arm and leg pain. CLINICAL DATA: This is the patient's initial encounter. Patient reports that signs and symptoms have been present for 1 day and indicates a pain score of 3/10. MEDICAL/SURGICAL HISTORY: Diabetes. None. RADIATION DOSE: 24.59 CTDI (mGy) COMPARISON: No prior exams available for comparison. TECHNIQUE: Contiguous axial images were obtained using helical multirow detector technique. The vol umetric data was post-processed with multiplanar reconstruction in oblique axial, sagittal, and coron al planes. Using automated exposure control and adjustment of the mA and/or kV according to patient s ize, radiation dose was kept as low as reasonably achievable to obtain optimal diagnostic quality kristin ges. DICOM format image data is available electronically for review and comparison. FINDINGS: Cervical spine alignment is satisfactory. There is no evidence of fracture or destructive change. The re is severe pronounced cervical canal stenosis related to ossification of the posterior longitudinal ligament between the C3 and C5 levels with near complete obliteration of canal space in the AP dimen vincent at the level of the lower aspect of the C3-4 disc space. There is obvious severe cervical cord c ompression. Elsewhere, there is significant broad dorsal disc osteophyte at C5-6, undulating dorsal d isc osteophyte at C6-7 and C7-T1 levels producing less significant. Degrees of canal compromise. 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
--- NOTE | 2018-09-28 02:48 | CT ---
EXAM DATE: 09/28/2018 2:25 AM EST AGE/SEX: 48 years / Male INDICATIONS: Right arm and leg pain. CLINICAL DATA: This is the patient's initial encounter. Patient reports that signs and symptoms have been present for 1 day and indicates a pain score of 3/10. MEDICAL/SURGICAL HISTORY: Diabetes. None. RADIATION DOSE: 30.86 CTDI (mGy) ; Combined studies COMPARISON: [facility] [place], CT CERVICAL SPINE W/O CONTRAST, 09/28/2018. . TECHNIQUE: Contiguous axial images were acquired using a multirow detector CT scanner without contra st. Multiplanar reconstruction in the sagittal and coronal planes was performed. Using automated exp osure control and adjustment of the mA and/or kV according to patient size, radiation dose was kept a s low as reasonably achievable to obtain optimal diagnostic quality images. DICOM format image data is available electronically for review and comparison. FINDINGS: Thoracic spine alignment is satisfactory. There is no evidence of thoracic spine fracture or destruct daniela change. There is moderately severe bony thoracic canal stenosis at the T7-8 disc space level rela beti to prominent dorsal canal ossification in the midline interposed between the facet joints. This i s felt to reflect prominent focal ligamentous ossification, however presence of a bony neoplasm such as an osteochondroma would be an additional consideration given the appearance, however considerably less likely given other findings in this patient. There is moderate associated compression of the the jhon sac. There is a mild degree of dorsal bony encroachment at several additional levels, including a symmetric to the right at the T3-T7 levels. CONCLUSION: Significant thoracic canal stenosis at the T7-8 disc space level related to presumed exuberant ligame ntous ossification in the dorsal canal. Less pronounced similar changes at multiple additional levels Electronically signed by: Fabien Leal MD Board Certified Radiologist 09/28/2018 2:47 AM EST
--- NOTE | 2018-09-28 02:52 | CT ---
EXAM DATE: 09/28/2018 2:26 AM EST AGE/SEX: 48 years / Male INDICATIONS: Right arm and leg pain. CLINICAL DATA: This is the patient's initial encounter. Patient reports that signs and symptoms have been present for 1 day and indicates a pain score of 3/10. MEDICAL/SURGICAL HISTORY: Diabetes. None. RADIATION DOSE: 30.86 CTDI (mGy) ; Combined studies COMPARISON: No prior exams available for comparison. TECHNIQUE: Contiguous axial images were acquired with a multirow detector CT scanner without contras t. Multiplanar reconstructions in the sagittal and coronal plane were also performed. Using automate d exposure control and adjustment of the mA and/or kV according to patient size, radiation dose was k ept as low as reasonably achievable to obtain optimal diagnostic quality images. DICOM format image data is available electronically for review and comparison. FINDINGS: Lumbar spine alignment is satisfactory. There is no evidence of fracture or destructive change. There is mild multilevel disc disease with annular bulge and slight broad superimposed dorsal disc protrus ion most notably at the lumbosacral junction. There is posterior facet arthropathy present to a mild degree of multiple levels, most significantly at L4-5 and L5-S1. No significant canal compromise is i dentified. There is mild asymmetrically left-sided foraminal stenosis associated with facet arthropat hy/hypertrophy and associated spurring or adjacent ligamentous ossification in the proximal neural fo ramen. CONCLUSION: 1. No acute bony findings. 2. Disc disease most notably at L5-S1 with asymmetrically left-sided foraminal stenosis present. 3. No significant lumbar canal compromise. Electronically signed by: Fabien Leal MD Board Certified Radiologist 09/28/2018 2:50 AM EST
[2018-09-28] MEDS: Sod Chloride 0.9% Inj 1,000 ML IV.CONT SCH ×2 (02:55→17:36)
--- NOTE | 2018-09-28 08:49 | US ---
EXAM DATE: 09/28/2018 8:45 AM EST AGE/SEX: 48 years / Male INDICATIONS: Right sided weakness. CLINICAL DATA: This is the patient's initial encounter. Patient reports that signs and symptoms have been present for 1 day and indicates a pain score of 0/10. MEDICAL/SURGICAL HISTORY: Diabetes. None. COMPARISON: No prior exams available for comparison. VELOCITY PARAMETERS: ICA/CCA Ratio: Right 1.3 , Left 1.17 ICA: Right 128 cm/sec, Left 80 cm/sec CCA: Right 99 cm/sec, Left 68 cm/sec ECA: Right 77 cm/sec, Left 89 cm/sec Vertebral: Right 54 cm/sec antegrade, Left 40 cm/sec antegrade FINDINGS: Right Carotid: No significant plaque is visualized.The waveforms are within normal limits. Left Carotid: No significant plaque is visualized. The waveforms are within normal limits. Other: None. CONCLUSION: Negative for hemodynamically significant stenosis Electronically signed by: Tl Jeong MD Board Certified Radiologist 09/28/2018 8:47 AM EST
[2018-09-28] MEDS ORDERED: Aspirin 325 MG Tablet PO SCH (09:00)
--- NOTE | 2018-09-28 09:40 | MB ---
cc: Joe Ghotra MD DATE: 09/28/2018 HISTORY OF PRESENT ILLNESS: A 48-year-old right-handed man with insulin-dependent diabetes, otherwise he has been fairly healthy. In July, he came in with his blood pressure elevated. He had noticed some numbness in his hands and trouble moving his arm and leg was sometimes a little bit stiff . It seemed to get worse in August and his leg slowly got worse. Occasionally it would feel like it might buckle on him. He came into the hospital. He has not had any major neck pain. It has been found that he has severe spinal stenosis in the cervical spine. REVIEW OF SYSTEMS: No history of hypertension; hypercholesterolemia; MA; stent; angioplasty; AFib; Coumadin; renal, hepatic, pulmonary disease; thyroid disease; lupus; cancer; or stroke. SOCIAL HISTORY: Not a smoker or drinker. Lives with a roommate. 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 FAMILY HISTORY: Negative for cancer or seizure. Positive for stroke in his father. MEDICATIONS: He takes insulin at home. PHYSICAL EXAMINATION: VITAL SIGNS: Afebrile, 16, 78, 115/79. NECK: There are no carotid bruits. HEART: Regular rate and rhythm. I did not detect a murmur. NEUROLOGIC: Pupils are equal. Visual carpenter full. Extraocular movements intact without nystagmus. Face is symmetric with normal sensation. Tongue was midline. There is no drift. He had some slight weakness of the right triceps about a 5-/5 and finger extensors about a 5-/5. Right FDI appears to be weak about 4-/5. Left upper extremity normal including the triceps, finger extensors, and FDI. Right lower extremity is about a 4-4+/5 in the iliopsoas, but his hamstrings and quadriceps are normal. Tibialis anterior slight diminished range of motion, otherwise normal. Left lower extremity strength is normal. DTRs are hyperreflexive on the right compared to the left. He has multiple beats of right-sided ankle clonus. The right toe is up, the left is down. He is slightly ataxic on [id number] on the right and not so on the left. Speech is fluent. He is not aphasic. DIAGNOSTIC DATA: CBC is normal. UA had 6 white cells. BMP essentially unremarkable. Glucose 134. LFTs normal. TSH normal. Troponin negative. Coags normal. CT scan of the thoracic spine showed a T7-T8 moderate spinal stenosis. I did review those films. Lumbar spine, no major disease, just some mild DJD by report. Cervical spine CT shows severe spinal stenosis C3-C5; at C3-C4, almost complete obliteration of the canal with ossification of the posterior longitudinal ligament. CT scan of the brain negative. IMPRESSION: Myelopathy with right-sided weakness and hyperreflexive ankle clonus. Neurosurgery is on the case. We will check a B12 level on him and otherwise I am going to defer to neurosurgery on the case and sign off. We will have physiatry see him here also. MD ARELI Moscoso/cassidy , 08:48 AM , 08:56 AM
--- NOTE | 2018-09-28 10:13 | MR ---
EXAM DATE: 09/28/2018 9:47 AM EST AGE/SEX: 48 years / Male INDICATIONS: . Right arm weakness. CLINICAL DATA: This is the patient's initial encounter. Patient reports that signs and symptoms have been present for 1 month and indicates a pain score of 3/10. MEDICAL/SURGICAL HISTORY: Diabetes mellitus type II. None. COMPARISON: [facility] – [place], CT THORACIC SPINE W/O CONTRAST, 09/28/2018. . TECHNIQUE: Multiplanar, multisequence MRI examination of the cervical spine was performed without co ntrast. FINDINGS: Vertebrae: Normal vertebral body height. Severe spinal stenosis from C2 to C5 Alignment: Normal. Cord: Normal configuration and signal. Post Fossa: The cerebellar tonsils are normal in position. C2-C3: The thecal sac has a normal configuration. There is no evidence of disc herniation or spinal canal stenosis. The neural foramina are patent bilaterally. C3-C4: There is severe spinal stenosis with ossification of the posterior longitudinal ligament asso ciated with significant disc disease. Thecal sac is severely compromised with edema in the cord. C4-C5: Significant compromise of the thecal sac with edema in the cord and bilateral neural foramina l encroachment C5-C6: Mild central disc bulge and minimal uncinate ridging. Thecal sac is obliterated anteriorly C6-C7: Thecal sac has resumed a more near normal appearance. C7-T1: No epidural impressions seen. CONCLUSION: 1. Severe spinal stenosis from mid C2 to mid C5 with edema in the cord and severe deformity of the c ord. Electronically signed by: Tl Jeong MD Board Certified Radiologist 09/28/2018 10:11 AM EST
--- NOTE | 2018-09-28 10:26 | MR ---
EXAM DATE: 09/28/2018 9:36 AM EST AGE/SEX: 48 years / Male INDICATIONS: . Right arm weakness. CLINICAL DATA: This is the patient's initial encounter. Patient reports that signs and symptoms have been present for 1 month and indicates a pain score of 3/10. MEDICAL/SURGICAL HISTORY: Diabetes mellitus type II. None. COMPARISON: No prior exams available for comparison. TECHNIQUE: Multiplanar, multisequence examination of the brain was performed without contrast. FINDINGS: Cerebrum: The ventricles are normal for age. No evidence of midline shift, mass lesion, hemorrhage or acute infarction. No extraaxial fluid collections are seen. The pituitary gland and suprasellar cistern are normal in configuration. White Matter: No significant signal abnormalities are seen in the white matter. Posterior Fossa: The cerebellum and brainstem are intact. The 4th ventricle is midline. The cerebel lopontine angle is unremarkable. The cerebellar tonsils are normal in position. Diffusion Imaging: No focal areas of restricted diffusion are seen. No evidence of acute infarction . Extracranial: The visualized portions of the orbits and paranasal sinuses are unremarkable. CONCLUSION: 1. Negative MRI of the brain. Electronically signed by: Tl Jeong MD Board Certified Radiologist 09/28/2018 10:25 AM EST
--- NOTE | 2018-09-28 10:27 | MR ---
EXAM DATE: 09/28/2018 9:34 AM EST AGE/SEX: 48 years / Male INDICATIONS: . Right arm weakness. CLINICAL DATA: This is the patient's initial encounter. Patient reports that signs and symptoms have been present for 1 month and indicates a pain score of 3/10. MEDICAL/SURGICAL HISTORY: Diabetes mellitus type II. None. COMPARISON: [facility] – [place], MR HEAD W/O CONTRAST, 09/28/2018. . TECHNIQUE: 3D [id number] MRA was performed. Source images, multiplanar STS MIP, and 3D volum e MIP reconstructions were reviewed. FINDINGS: There is excellent visualization of the major intracranial arteries out to the second-order branch ve ssels. There is no evidence for aneurysm, vessel truncation or stenosis, and no evidence for vascula r malformation. CONCLUSION: 1. Negative MRA of the brain Electronically signed by: Tl Jeong MD Board Certified Radiologist 09/28/2018 10:25 AM EST
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
[2018-09-28] MEDS ORDERED: Bisacodyl 10 MG Supp RECTAL PRN (12:22)
--- NOTE | 2018-09-28 13:03 | P.CONCC ---
History of Present Illness Service: Critical care medicine Consult date: 09/28/18 Requesting Physician: Clement Pinto Reason for Consult: Critical care management Primary Care Provider: No Primary Care Physician Chief Complaint: Right arm and leg weakness History of Present Illness: This 48-year-old gentleman with insulin-dependent diabetes mellitus and an episode of diabetic ketoacidosis recently noted at the time of that admission that he had right leg weakness. He returns to the emergency department today with worsening right-sided symptoms including weakness in the arm and leg and pain in the right leg. Evaluation demonstrated normal MRI of the brain but MRI of the cervical spine revealed severe stenosis at levels C2 through C5 consistent with his weakness and symptoms. This is a critical situation with spinal cord compression. He received an initial dose of steroids in the emergency department and will receive steroids prior to surgery. We anticipate poor control of his diabetes with steroid administration and he will be admitted to the intensive care unit for management prior to his much needed cervical spine decompression. Review of Systems Right leg pain and weakness. Right arm weakness. No chest pain or shortness of breath. No nausea or vomiting. PMFSH - History History Provided By: Family Member - Medical History Medical History: Medical History (Last Reviewed 09/28/18 @ 08:13 by Juanita Camacho) Diabetes mellitus - Surgical History Surgical History: Surgical History (Last Reviewed 09/28/18 @ 08:13 by Juanita Camacho) No history of previous surgery - Family History Family History: Family History (Last Reviewed 09/28/18 @ 08:13 by Juanita Camacho) Mother Diabetes - Tobacco History Second Hand Smoke Exposure: No Smoking Status: Never smoker - Alcohol History How Often Do You Have a Drink Containing Alcohol: Never - Substance Use History Substance History: No History of Abuse - Travel History Recent Travel in the [facility] Within the Last 8 Weeks: No Recent Travel Out of the Country Within the Last 8 Weeks: Yes - Immunization History Tetanus Immunization: <5 Years Medications and Allergies Active Medications: Active Medications Al Hydroxide/Mg Hydroxide (Milk Of Magncheyanne Liq) 30 ml PO Q12H PRN PRN Reason: Mild Constipation Bisacodyl (Dulcolax Supp) 10 mg RECTAL DAILY PRN PRN Reason: SEVERE CONSITIPATION Chlorhexidine Gluconate (Chlorhexidine 2% Cloth) 3 pack TOPICAL DAILY@0400 [facility] Stop: 10/04/18 03:59 Chlorhexidine Gluconate (Chlorhexidine 2% Cloth) 3 pack TOPICAL DAILY@0400 PRN PRN Reason: Extra cloth needed Stop: 10/04/18 03:59 Dexamethasone Sodium Phosphate (Decadron Inj) 8 mg IV.PUSH ONCE ONE Stop: 09/28/18 13:01 Dextrose (D50w Vial) 50 ml IV.PUSH UNSCH PRN PRN Reason: per Hypoglycemic Protocol Famotidine (Pepcid) 20 mg PO BID RICHARD Glucagon (Glucagon Inj) 1 mg OTHER UNSCH PRN PRN Reason: per Hypoglycemic Protocol Sodium Chloride (Ns Inj) 1,000 mls @ 70 mls/hr IV.CONT .[id number] RICHARD Last Admin: 09/28/18 02:55 Dose: 70 mls/hr Insulin Aspart (Novolog Insulin Correctional Sugar Inj) 0 unit SQ ACHS PRN; Protocol PRN Reason: Per Protocol Lactulose (Lactulose Liq) 30 ml PO DAILY PRN PRN Reason: SEVERE CONSITIPATION Senna/Docusate Sodium (Kathleen-Colace) 1 tab PO BID [facility] Sennosides (Senokot) 17.2 mg PO Q12H PRN PRN Reason: Moderate Constipation Sodium Chloride (Ns Flush) 2 ml IV.FLUSH PRN PRN PRN Reason: FLUSH AFTER USING IV ACCESS Sodium Chloride (Ns Flush) 2 ml IV.FLUSH BID RICHARD Sodium Chloride (Ns Flush) 2 ml IV.FLUSH PRN PRN PRN Reason: FLUSH AFTER USING IV ACCESS Allergies Allergy/AdvReac Type Severity Reaction Status Date / Time No Known Allergies Allergy Verified 09/27/18 18:32 Physical Exam Vital signs: Vital Signs 09/27/18 18:30 09/27/18 19:37 09/27/18 23:00 Temperature 98.2 F Pulse Rate 104 H 76 Respiratory Rate 18 16 Blood Pressure 159/91 H 156/100 H Pulse Oximetry 100 100 100 09/28/18 01:47 09/28/18 02:04 09/28/18 04:00 Temperature 98.4 F 97.5 F L Pulse Rate 77 68 65 Respiratory Rate 17 17 Blood Pressure 125/77 113/62 Pulse Oximetry 99 94 L 09/28/18 04:04 09/28/18 07:52 09/28/18 08:00 Temperature 98.0 F 97.9 F Pulse Rate 70 78 98 H Respiratory Rate 16 16 Blood Pressure 126/79 115/79 Pulse Oximetry 99 100 09/28/18 12:04 Temperature Pulse Rate 79 Respiratory Rate 16 Blood Pressure 134/81 Pulse Oximetry 100 Intake & Output 09/27/18 09/28/18 09/28/18 18:59 06:59 18:59 Intake Total 350 / 350 Output Total 0 / 0 Balance 350 / 350 Weight 102.058 kg 102.058 kg Intake: IV 350 / 350 NS Inj 1,000 ML @ 70 mls/hr IV. 350 / 350 CONT .[id number] [facility] Rx#:[id number] Oral 0 / 0 Output: Urine 0 / 0 Other: Weight On Admission 102.058 kg Narrative: Narrative: General: Calm, minimal distress, hungry Head: Normocephalic. Atraumatic. EENT: MIRIAN. Nose without drainage. Airway widely patent. Cardiovascular: Regular rate and rhythm. Normal S1, S2. No JVD. Respiratory: Lungs clear to auscultation bilaterally. Normal chest wall excursions. No adventitious sounds. Abdomen: Soft, nontender, nondistended. No guarding, bowel sounds active. Musculoskeletal: No gross deformities. No edema. Warm, well-perfused. Skin: Warm. No obvious rashes or erythema. Neuro: Alert and oriented x3. MIRIAN. EOMs intact. Right arm power 3/5. Right leg power 2/5. Left side normal. Septic Shock Reassessment Septic shock perfusion: reassessment completed Assessment and Plan - Assessment and Plan Plan: Plan: Assessment/plan: Cervical spinal stenosis, C2-C5 -Most likely cause of right-sided weakness -Plan operative decompression cervical spine -Preoperative steroids T8 level thoracic spine stenosis -Observe for now Diabetes mellitus -Reduce basal coverage -Continue sliding scale correction -Will start diabetic constant carb diet today -N.p.o. after midnight FEN -Continue hydration with isotonic crystalloid Prophylaxis -SCDs for DVT prophylaxis -Initiate chemical DVT prophylaxis postoperatively -Pepcid for GI ulcer prophylaxis Overall impression: This gentleman presents with severe symptomatic cervical spinal stenosis manifesting his right arm and leg weakness and leg pain. This represents a critical situation and he will require urgent decompression. Because of his recent poorly controlled diabetes we will spend a brief period adjusting his basal and correction insulin, ensuring adequate hydration, and reviewing the thoracic spine component while planning for operation within the next [address] Pinto of the neurosurgical service.
[2018-09-28] MEDS ORDERED: Insulin Detemir Inj 1,000 UNIT/10 ML Vial SQ ONE (13:04)
--- NOTE | 2018-09-28 14:17 | ECG ---
Date Performed: 09/27/2018 Time Performed: 18:57:57 PTAGE: 48 years EKG: SINUS TACHYCARDIA ABNORMAL RHYTHM ECG Since the PREVIOUS TRACING , no significant change noted PREVIOUS TRACIN05/22/2010 08.14 DOCTOR: Bal Humphries Interpretating Date/Time 09/28/2018 14:12:43
--- NOTE | 2018-09-28 15:19 | MB ---
cc: Clement Pinto MD DATE: 09/28/2018 TIME: 11 a.m. Report of an initial comprehensive inpatient floor neurosurgical consultation. The patient was interviewed and examined, the documentation, laboratory evaluation and imaging were reviewed. CHIEF COMPLAINT: Weakness and numbness. HISTORY OF PRESENT ILLNESS: This is a 48-year-old right-handed, -[place] male; apparently is from the [place], who describes a several month history of progressive numbness and weakness in all 4 extremities, more so on the right than the left. Initially sought medical attention in the emergency department 2 months ago with similar complaints and was diagnosed with diabetes mellitus. He subsequently was placed on insulin. In any case, his symptoms have progressed. 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 He describes increasing difficulty with his gait, and weakness and clumsiness of his right hand. He denies bowel or bladder dysfunction. Radiographic workup reveals opacification of the posterior longitudinal ligament with cervical spondylitic stenosis and spinal cord compression, extending from C2-C5. There is some loss of normal lordosis with straightening. The MRI scan of the cervical spine revealed signal changes within the cord parenchyma at C3-4. He also appears to have calcification of ligamentum flavum in his thoracic spine at multiple levels, but most severe at what appears to be T7, T8; severe spinal stenosis at this level. He also suffered thoracic spondylosis, as well as lumbar spondylosis. PAST MEDICAL HISTORY: Remarkable for history of diabetes mellitus. PAST SURGICAL HISTORY: Negative. MEDICATIONS: Include: Insulin. ALLERGIES: HE HAS NO KNOWN DRUG ALLERGIES. SOCIAL HISTORY: He is independent and lives with his . 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 He denies a history of illicit drug use, ethanol abuse or cigarette smoking. FAMILY HISTORY: Remarkable for history of diabetes and stroke. REVIEW OF SYSTEMS: The patient denies any weight loss. He denies any fever, chills or night sweats. Denies any headaches or change in his vision or hearing or thinking or memory or speech or swallowing or chest pain or shortness of breath or abdominal pain or change in bowel or bladder function or characteristics of his urine or stool. He admits to gait imbalance is described above. He denies any rash, itching, or easy bruising. He denies any anxiety or depression. NEUROLOGICAL EXAMINATION: VITAL SIGNS: Temperature is 98, his heart rate 78, his blood pressure is 115/79, respiratory rate is 16. His SPO2 is 100% on room air. MENTAL STATUS: Testing finds him to be awake and alert. He is oriented x3. Cognitive function is grossly intact. His speech is fluent. Cranial nerve testing 2-12 is grossly intact. Visual carpenter are full to confrontation. Extraocular movements are full, without diplopia or nystagmus. Funduscopic examination was deferred due to myopic pupils. Motor examination found bulk to be within normal limits. Tone is mildly increased in all 4 extremities. Power testing revealed 4.5/5+ weakness of the right deltoid and right biceps; right triceps with 4+/5+ weakness of the finger extensors and interossei on the right as well as the hip flexor on the right as well as the dorsiflexors and plantar flexors of his right foot. On the left, there was 4.5/5+ weakness of the finger extensors and interossei. Sensory examination was intact to light touch and position throughout with some diminished pin with some apparent decrease in the bilateral C6-C7 and C8 dermatomal distribution. Position sense was intact. Deep tendon reflexes were 3-4+ and symmetric with bilateral inverted radial reflexes. There were diminished ankle jerks. Knee jerks are 3-4+. There were no pathological reflexes noted in his lower extremities. Cerebellar testing found some dysmetria. Fine coordination was impaired, more so on the right than the left. There was no truncal nor appendicular ataxia noted. Gait was not tested. Tandem cannot be performed. Romberg testing was negative. His head was normocephalic. External auditory canals were clear. Skin was clear, without masses. NECK: Supple without meningismus. SPINE: Cervical spine evaluation revealed mild limited range of motion without pain to palpation. There was a negative Lhermitte sign and a negative compression test. Pulses were 4+ present and symmetrical throughout. 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 He also apparently suffers with thoracic spinal stenosis. RECOMMENDATIONS AND PLAN: I have ordered an MRI scan of the thoracic spine to be done without contrast. Therapeutic options were discussed with the patient in regard to his cervical spine. The risks, benefits, limitations, complications, and alternatives to bilateral C2 through C6 laminectomies with posterolateral fusion with instrumentation were discussed and enumerated and no guarantees were afforded. He understood this and requested surgical intervention. Essentially informed consent has been obtained and preoperative medical clearance is pending. He will be scheduled to undergo the above-stated operation under general endotracheal anesthesia tomorrow. Thank you for allowing me to participate in the care of this patient. We will follow him with you. MD SERENITY Mejía/phuc , 02:47 PM , 03:00 PM
--- NOTE | 2018-09-28 16:03 | MR ---
EXAM DATE: 09/28/2018 3:44 PM EST AGE/SEX: 48 years / Male INDICATIONS: . Right arm weakness. CLINICAL DATA: This is the patient's subsequent encounter. Patient reports that signs and symptoms h ave been present for 2 days and indicates a pain score of 3/10. MEDICAL/SURGICAL HISTORY: Diabetes mellitus type II. None. [place] [facility] [place]28/2018. . TECHNIQUE: Multiplanar, multisequence MRI of the thoracic spine was performed. FINDINGS: There is mild curvature of the thoracic spine convex towards the right. Body height is maintained and there is no evidence of spondylolisthesis. There is significant spinal stenosis at the T7-8 level du e to a combination of disc protrusion and ossification of the posterior longitudinal ligament. There is indentation on the thoracic cord at this level and some T2 prolongation within the compressed cord . The conus is at the level of T12. No evidence of syrinx. T1-T2: The thecal sac has a normal diameter. No evidence of disc bulge or protrusion. T2-T3: The thecal sac has a normal diameter. No evidence of disc bulge or protrusion. T3-T4: The thecal sac has a normal diameter. No evidence of disc bulge or protrusion. T4-T5: The thecal sac has a normal diameter. No evidence of disc bulge or protrusion. T5-T6: Central bulging of the disc causes a mild indentation on the central thecal sac. No evidence of cord compression. T6-T7: The thecal sac has a normal diameter. No evidence of disc bulge or protrusion. T7-T8: Cord compression due to a combination of central small protrusion of the disc and a prominent calcification of the posterior longitudinal ligament. AP dimension of the thoracic cord is decreased to 3 mm and there is T2 prolongation within the substance of the cord at this level. T8-T9: Small central disc/osteophyte complex indents on the thecal sac but does not cause cord compr ession. T9-T10: The thecal sac has a normal diameter. No evidence of disc bulge or protrusion. T10-T11: The thecal sac has a normal diameter. No evidence of disc bulge or protrusion. T11-T12: The thecal sac has a normal diameter. No evidence of disc bulge or protrusion. T12-L1: The thecal sac has a normal diameter. No evidence of disc bulge or protrusion. CONCLUSION: 1. Cord compression and signal abnormality within the narrowed cord at the T7-8 level. The impressio n on the cord is due to a combination of central disc/osteophyte complex, and ossification of the pos terior longitudinal ligament. 2. Small anterior epidural impressions at T5-6 and T8-9 without evidence of cord compression. Electronically signed by: Jason Grande MD Board Certified Radiologist 09/28/2018 4:01 PM EST
[2018-09-28] MEDS ORDERED: Influenza (Quadrivalent) Vaccine 0.5 ML Syringe IM ONE (20:00)
[2018-09-28] MEDS: Senna/Docusate Sodium 8.6/50 MG Tablet PO SCH (20:45)
[2018-09-28] MEDS: Famotidine 20 MG Tablet PO SCH (20:45)
--- NOTE | 2018-09-28 21:09 | ECHRPT ---
Indication: CVA/TIA CONCLUSIONS Normal left ventricular size. Wall thickness is normal. The left ventricular systolic function is normal with an estimated ejection fraction in the range of 55-60%. No atrial level shunt is demonstrated by color flow Doppler interrogation. Trace mitral valve regurgitation. There is trace tricuspid valve regurgitation. There is less than 50% respiratory change in dimension of the inferior vena cava (abnormal). BP: / HR: Rhythm: Sinus MEASUREMENTS (Male / Female) Normal Values Technical Quality:Fair 2D ECHO LV Diastolic Diameter PLAX 4.6 cm 4.2 - 5.9 / 3.9 - 5.3 cm LV Systolic Diameter PLAX 3.8 cm IVS Diastolic Thickness 0.9 cm 0.6 - 1.0 / 0.6 - 0.9 cm LVPW Diastolic Thickness 0.9 cm 0.6 - 1.0 / 0.6 - 0.9 cm LV Relative Wall Thickness 0.4 RV Internal Dim ED PLAX 1.5 cm LVOT Diameter 1.9 cm Aortic Root Diameter 2.4 cm LA Systolic Diameter LX 2.8 cm 3.0 - 4.0 / 2.7 - 3.8 cm M-MODE AV Cusp Separation MM 2.1 cm DOPPLER AV Peak Velocity 113.0 cm/s AV Peak Gradient 5.1 mmHg AV Mean Gradient 3.0 mmHg AV Velocity Time Integral 20.9 cm LVOT Peak Velocity 69.9 cm/s LVOT Peak Gradient 2.0 mmHg LVOT Velocity Time Integral 12.2 cm AV Area Cont Eq vti 1.7 cm AV Area Cont Eq pk 1.8 cm Mitral E Point Velocity 70.6 cm/s Mitral A Point Velocity 82.4 cm/s Mitral E to A Ratio 0.9 LV E' Lateral Velocity 10.2 cm/s Mitral E to LV E' Lateral Ratio 6.9 LV E' Septal Velocity 10.9 cm/s Mitral E to LV E' Septal Ratio 6.5 PV Peak Velocity 68.4 cm/s PV Peak Gradient 1.9 mmHg FINDINGS LEFT VENTRICLE Normal left ventricular size. Wall thickness is normal. The left ventricular systolic function is normal with an estimated ejection fraction in the range of 55-60%. RIGHT VENTRICLE Normal right ventricular size and systolic function. LEFT ATRIUM The left atrial size is normal. RIGHT ATRIUM The right atrial size is normal. ATRIAL SEPTUM No atrial level shunt is demonstrated by color flow Doppler interrogation. AORTA The aortic root and proximal ascending aorta are normal in size on limited imaging. MITRAL VALVE Trace mitral valve regurgitation. AORTIC VALVE Trileaflet aortic valve. No aortic valve stenosis or regurgitation. TRICUSPID VALVE There is trace tricuspid valve regurgitation. PULMONARY VALVE No pulmonary valve regurgitation or stenosis. VESSELS There is less than 50% respiratory change in dimension of the inferior vena cava (abnormal). PERICARDIUM No pericardial effusion. Preston Greenwood MD (Electronically Signed) Final Date:28 September 2018 21:08
[2018-09-29] MEDS: Chlorhexidine Gluconate 2% 1 Pack (2 Cloths) TOPICAL SCH (03:23)
[2018-09-29] MEDS ORDERED: Chlorhexidine Gluconate 2% 1 Pack (2 Cloths) TOPICAL PRN (04:00)
[2018-09-29] MEDS: Sod Chloride 0.9% Inj 1,000 ML IV.CONT SCH ×3 (04:52→18:54)
[2018-09-29] MEDS ORDERED: Thrombin Topical Soln 5,000 UNIT Vial TOPICAL ONE (06:57)
[2018-09-29] MEDS ORDERED: Gelatin Size 100 Topical Foam ONE (06:57)
[2018-09-29 06:58] LABS: Anion Gap 7 meq/L (5-15); Blood Urea Nitrogen 12 mg/dL (7-18); Calcium 8.9 mg/dL (8.5-10.1); Carbon Dioxide 25.2 meq/L (21.0-32.0); Chloride 109 meq/L (98-107); Chol/HDL Ratio 3.77 Ratio; Glomerular Filtration Rate Greater Than 89 mL/min (>89); Glucose,Random 101 mg/dL (74-106); HDL Cholesterol 45.8 mg/dL (40.0-60.0); Potassium 4.5 meq/L (3.5-5.1); Sodium 141 meq/L (136-145)
[2018-09-29] MEDS ORDERED: Artificial Tears Opth Oint 3.5 GM Tube ONE (07:00)
[2018-09-29] MEDS ORDERED: HYDROmorphone PF Inj 2 MG/ML Vial ONE (07:01)
[2018-09-29] MEDS ORDERED: fentaNYL Citrate Inj 250 MCG/5 ML Ampul ONE (07:02)
[2018-09-29 07:17] LABS: Hematocrit 40.9 % (39.0-51.0); Hemoglobin 13.6 gm/dL (13.0-17.0); Mean Corpuscular HGB Conc 33.1 % (32.0-36.0); Mean Corpuscular Hemoglobin 31.4 pg (27.0-34.0); Mean Corpuscular Volume 94.8 fL (80.0-100.0); Platelet Count 261 th/mm3 (150-450); Red Blood Count 4.32 mil/mm3 (4.50-5.90); Red Cell Distribution Width 13.2 % (11.6-17.2); White Blood Count 8.6 th/mm3 (4.0-11.0)
[2018-09-29] MEDS ORDERED: Bacitracin Opth Oint 3.5 GM Tube ONE (07:32)
[2018-09-29] MEDS ORDERED: Phenylephrine/NS 1000 MCG/10ML Syringe IV.PUSH ONE (07:48)
[2018-09-29] MEDS ORDERED: Sodium Chlor 0.9% Inj 250 ML IV.CONT ONE (07:48)
[2018-09-29] MEDS ORDERED: Lidocaine PF 1% Inj 5 ML Syringe OTHER ONE (07:48)
[2018-09-29] MEDS ORDERED: Sodium Chlor 0.9% Inj 500 ML IV.CONT ONE (07:48)
[2018-09-29] MEDS ORDERED: Vancomycin Inj 1,500 MG in Sodium Chlor 0.9% Inj 500 ML IV.SIG ONE (08:00)
[2018-09-29] MEDS ORDERED: Sodium Chlor 0.9% Inj 0 ML ONE (08:27)
[2018-09-29] MEDS ORDERED: Bupivacaine Liposomal PF 1.3% Inj 20 ML Vial ONE (08:28)
[2018-09-29] MEDS ORDERED: Bupivacaine/Epinephrine Inj 0.25% 50 ML Vial ONE (09:29)
[2018-09-29] MEDS ORDERED: Bupivacaine Liposomal PF 1.3% Inj 20 ML Vial INFILTRATN ONE (10:10)
[2018-09-29] MEDS ORDERED: Propofol Inj 500 MG/50 ML Vial ONE (10:39)
[2018-09-29] MEDS ORDERED: Bisacodyl 10 MG Supp RECTAL PRN (13:57)
[2018-09-29] MEDS ORDERED: Menthol 5.8 MG Lozenge BUCCAL PRN (13:57)
[2018-09-29] MEDS ORDERED: Morphine Sulfate Inj 2 MG/ML Vial IV.PUSH PRN (13:57)
--- NOTE | 2018-09-29 13:57 | P.PCN ---
Date of procedure: 09/29/18 Pre-op diagnosis: Multilevel cervical spondylitic stenosis with OPLL and myelopathy Post-op diagnosis: same Procedure: Bilateral cervical 2 through cervical 6 laminectomies with foraminotomies with a posterior lateral fusion with spinal instrumentation from cervical 2 through cervical 6 Anesthesia: FLAVIAA Surgeon: Clement Pinto Estimated blood loss (mL): 300 Pathology: none sent Condition: stable Disposition: PACU
--- NOTE | 2018-09-29 14:35 | XR ---
EXAM DATE: 09/29/2018 2:00 PM EST AGE/SEX: 48 years / Male INDICATIONS: Post-op C2-C3, C3-C4, C4-C5, C5-C6 laminectomy and posterior fusion. CLINICAL DATA: This is the patient's subsequent encounter. Patient reports that signs and symptoms h ave been present for 2 weeks and indicates a pain score of Nonresponsive. MEDICAL/SURGICAL HISTORY: Non-responsive. Non-responsive. COMPARISON: No prior exams available for comparison. FINDINGS: 4 views of the cervical spine were recorded digitally in the operating room using C-arm after placeme nt of posterior spinal hardware CONCLUSION: Intraoperative images. Electronically signed by: Jason Grande MD Board Certified Radiologist 09/29/2018 2:33 PM EST
[2018-09-29] MEDS ORDERED: fentaNYL Citrate Inj 100 MCG/2 ML Ampul ONE (14:42)
[2018-09-29] MEDS: Senna/Docusate Sodium 8.6/50 MG Tablet PO SCH ×3 (15:55→20:02)
[2018-09-29] MEDS: Famotidine 20 MG Tablet PO SCH ×2 (15:55→20:02)
--- NOTE | 2018-09-29 16:12 | MP ---
cc: Clement Pinto MD DATE OF OPERATION: 09/29/2018 PREOPERATIVE DIAGNOSIS: Multilevel cervical spondylitic stenosis with opacification of the posterior longitudinal ligament and progressive myelopathy. POSTOPERATIVE DIAGNOSIS: Multilevel cervical spondylitic stenosis with opacification of the posterior longitudinal ligament and progressive myelopathy. PROCEDURE PERFORMED: Bilateral cervical 2 through cervical 6 laminectomies with foraminotomies with posterior lateral fusion with spinal instrumentation from cervical 2 through cervical 6. SURGEON: Clement Pinto MD INFORMATICS APPLICATION ANALYST: instructional technologist physiotherapy assistant. ANESTHESIA: General endotracheal. ESTIMATED BLOOD LOSS: 300 mL. REPLACEMENT: None needed. COMPLICATIONS: None. DISPOSITION: To PACU stable. INDICATIONS: This is a 48-year-old [facility] male who suffered with the above-stated diagnosis. Radiographic evaluation was consistent with the above-stated diagnosis. Therapeutic options were discussed with the patient. The risks, benefits, limitations, complications, and alternatives of the above-stated operation were discussed and enumerated and no guarantees were afforded. He understood and requested surgical intervention. Informed consent was obtained and preoperative medical clearance obtained and the patient was brought to the operating room. PROCEDURE: The patient was brought to the operating room on cart. He was intubated and after a sufficient plane of general endotracheal anesthesia was obtained, a Cee catheter was placed as well as sequential compression devices. Throughout the procedure, intraoperative spinal cord monitoring was used to monitor the integrity of the neural axis which remained stable throughout the procedure. His responses were abnormal, they were maintained and remained stable throughout the procedure. They were initiated after induction of anesthesia and prior to positioning and throughout the procedure. His head was then placed in the [place] 3-point head boys golf coach fixation device and he was rotated to the prone position on the Alvino spinal table. The Polk was secured to the Alvino table in a standard fashion and rigid fixation was obtained. Pressure points were padded appropriately. Throughout the procedure, C-arm fluoroscopic imaging was obtained for localization as well as placement of the instrumentation and the spinal fusion. In any case, his occiput as well as posterior cervical neck and upper dorsal spine area was then prepped and draped in a sterile fashion and appropriate timeout procedure was performed. In the area of the incision, the skin and subcutaneous tissue was infiltrated with 20 mL of 0.25% bupivacaine with epinephrine. A midline incision was made extending from the occiput to the top of C7. The incision was brought down through skin and subcutaneous tissue. Hemostasis was obtained with the use of monopolar coagulation. The fascia was incised and a subperiosteal dissection performed over the paraspinal muscles laterally and exposing the spinous process and lamina as well as lateral masses of C2, C3, C4, C5, C6 and the top of C7 bilaterally. Soft tissues were retracted using angled cerebellar retractors as well as Adson-Sabino self-retaining retractors. C-arm fluoroscopy imaging documented we needed to expose the appropriate levels. Then, using Spine Wave proficient posterior cervical spinal instrumentation, pars screws were placed in the lateral mass and into the pars of C2 bilaterally, and lateral mass screws were placed at C3, C4, C5, and C6 bilaterally. Contoured rods were bent appropriately and placed through the heads of the screws and locking screws were applied. In this way, rigid cervical spinal fixation was obtained. This was done without complication. It was done in a standard fashion. C-arm fluoroscopy was used to facilitate placement of the spinal instrumentation. Troughs were then drilled using a matchstick carbide bur and a Teikon drill through the lamina of C2, C3, C4, C5 and C6 bilaterally and an en bloc laminectomy was performed in this way from C2 through C6. The soft tissue was then denuded from the spinous processes and lamina and using a bone mill. The laminectomized bone was morcellized as well as the spinous processes. This was to be used as bone graft later in the procedure. Foraminotomies were then performed bilaterally at C2, C3, C4, C5 and C6. Hemostasis was maintained throughout the procedure with the use of bipolar coagulation as well as Surgiflo and thrombin-soaked Gelfoam. It appeared an adequate decompression was performed and the dura elevated to the area decompressed. There appeared to be dural pulsations. This was throughout the procedure. At the completion of the decompression, there appeared to be no compression of the neural elements in the area decompressed and exposed. This was from C2 through C6. Prior to placing the spinal instrumentation, the lateral masses and facets had been decorticated using a round carbide bur and the Esperanza electric drill. This was done bilaterally from C2 through C6. The laminectomized bone autograft was mixed with cancellous bone allograft chips and placed posterolaterally over the lateral masses and facets extending from C2 through C6. Through a separate stab wound, a #7 flat LUCAS drain was placed into the epidural space, and connected to closed drainage suction. It was secured to the skin using a 2-0 nylon suture. The wound was then approximated in layers. Prior to closing the wound, 1 gram of vancomycin powder was placed in the operative site. Muscle and fascia were then approximated with multiple interrupted sutures of 0 Vicryl. The fascia was then approximated with multiple interrupted sutures of 0 Vicryl. The subcutaneous tissue was then approximated with multiple interrupted sutures of 2-0 Vicryl. The skin was then approximated with skin brenda. Antibiotic ointment and sterile dressing were applied. At the completion of the procedure, sponge count, needle count as well as cottonoid count was correct. Estimated blood loss was 300 mL. REPLACEMENT: None needed. COMPLICATIONS: Apparently none. The patient tolerated the procedure well and was taken to the post anesthetic care unit hemodynamically stable but still somewhat anesthetized. MD SERENITY Mejía/bird , 03:33 PM , 03:47 PM
--- NOTE | 2018-09-29 16:13 | MR ---
EXAM DATE: 09/29/2018 4:05 PM EST AGE/SEX: 48 years / Male INDICATIONS: . Extremity weakness post op. CLINICAL DATA: This is the patient's subsequent encounter. Patient reports that signs and symptoms h ave been present for 2 days and indicates a pain score of 0/10. MEDICAL/SURGICAL HISTORY: Diabetes. Fusion, cervical. COMPARISON: [facility] – [place], [place] CERVICAL SPINE W/O CONTRAST, 09/28/2018. . TECHNIQUE: Multiplanar, multisequence MRI examination of the cervical spine was performed without co ntrast. FINDINGS: Vertebrae: Posterior fusion C2-C6 with laminectomies identified. Alignment: Normal. Cord: Normal configuration and signal. Post Fossa: The cerebellar tonsils are normal in position. C2-C3: The thecal sac has a normal configuration. There is no evidence of disc herniation or spinal canal stenosis. The neural foramina are patent bilaterally. C3-C4: Moderate broad-based protrusion again noted. Cord flattening again seen. No canal stenosis. T 2 signal abnormality seen within the cord on the left. Bilateral laminectomies. Hypertrophic facets a nd mild neural foraminal narrowing. C4-C5: Moderate broad-based protrusion abuts the ventral thecal sac. No canal stenosis. Cord flatten ing. Hypertrophic facets causes [id number] bilateral neural foraminal narrowing. Bilateral lami nectomies. C5-C6: Small broad-based protrusion abuts the ventral thecal sac. Slight cord flattening. No canal s tenosis. Hypertrophic facets causes mild bilateral neural foraminal narrowing C6-C7: Mild broad-based protrusion abuts the ventral thecal sac. Slight cord flattening. No canal st enosis. Moderate neural foraminal narrowing bilaterally. Bilateral laminectomies. C7-T1: No epidural impressions seen. CONCLUSION: 1. Postsurgical changes with fusion posteriorly and bilateral laminectomies C2-C6. 2. T2 signal abnormality within the cord on the left at C3-4 likely myelomalacia. Electronically signed by: Noah Machado MD Board Certified Radiologist 09/29/2018 4:12 PM EST
[2018-09-29 16:51] LABS: Hemoglobin A1c 8.9 % (4.3-6.0)
--- NOTE | 2018-09-29 17:24 | P.PNCC ---
Subjective Subjective Remarks/Hospital Course: Hospital Course: This 48-year-old gentleman with insulin-dependent diabetes mellitus and an episode of diabetic ketoacidosis recently noted at the time of that admission that he had right leg weakness. He returns to the emergency department today with worsening right-sided symptoms including weakness in the arm and leg and pain in the right leg. Evaluation demonstrated normal MRI of the brain but MRI of the cervical spine revealed severe stenosis at levels C2 through C5 consistent with his weakness and symptoms. This is a critical situation with spinal cord compression. He received an initial dose of steroids in the emergency department and will receive steroids prior to surgery. We anticipate poor control of his diabetes with steroid administration and he will be admitted to the intensive care unit for management prior to his much needed cervical spine decompression. Subjective: 09/29: s/p decompression and fusion. now post-operative and with new left-sided arm weakness. stat MRI stable when compared to prior. nsgy added dexamethasone. patient denies complaints except for new arm weakness. Objective Vital Signs / I&O: Vital Signs 09/28/18 17:24 09/28/18 18:00 09/28/18 19:00 Temperature Pulse Rate 77 80 85 Respiratory Rate 15 25 H 20 Blood Pressure 138/82 133/87 127/73 Pulse Oximetry 100 100 100 09/28/18 20:00 09/28/18 21:00 09/28/18 22:00 Temperature 36.6 C Pulse Rate 86 84 78 Respiratory Rate 24 19 25 H Blood Pressure 125/84 115/71 136/82 Pulse Oximetry 100 100 100 09/28/18 23:00 09/29/18 00:00 09/29/18 00:05 Temperature 36.8 C Pulse Rate 79 74 68 Respiratory Rate 17 17 14 Blood Pressure 137/88 144/87 H Pulse Oximetry 100 100 100 09/29/18 01:00 09/29/18 02:00 09/29/18 03:00 Temperature Pulse Rate 70 73 69 Respiratory Rate 13 12 11 L Blood Pressure 136/81 117/73 147/96 H Pulse Oximetry 100 100 100 09/29/18 04:00 09/29/18 05:00 09/29/18 06:00 Temperature 36.6 C Pulse Rate 68 67 81 Respiratory Rate 8 L 12 25 H Blood Pressure 137/86 135/83 124/92 H Pulse Oximetry 100 100 100 09/29/18 06:48 Temperature 36.9 C Pulse Rate 79 Respiratory Rate 19 Blood Pressure 128/89 Pulse Oximetry 100 Intake & Output 09/28/18 09/29/18 09/29/18 18:59 06:59 18:59 Intake Total 1240 / 1240 1480 / 1480 3800 / 3800 Output Total 400 / 400 1200 / 1200 2820 / 2820 Balance 840 / 840 280 / 280 980 / 980 Weight 104.7 kg Intake: IV 1000 / 1000 1000 / 1000 1000 / 1000 NS Inj 1,000 ML @ 70 mls/hr IV. 1000 / 1000 1000 / 1000 1000 / 1000 CONT .[id number] RICHARD Rx#:[id number] Oral 240 / 240 480 / 480 0 / 0 Anesthesia Amount 2800 / 2800 Output: Urine 400 / 400 1200 / 1200 Estimated Blood Loss 350 / 350 Urine Amount (Catheter) 2450 / 2450 Indwelling Urethral Catheter 2450 / 2450 Wound Drainage / # 1 Posterior Neck LUCAS Drain Other: # Voids 1 # Bowel Movements 0 Result Diagrams: 09/29/18 06:17 09/29/18 06:17 Objective Remarks: General: middle-aged male, lying in bed Head: Normocephalic. Atraumatic. EENT: MIRIAN. Nose without drainage. Airway widely patent. Cardiovascular: Regular rate and rhythm. sinus. No JVD. Respiratory: equal chest rise. nc o2. Normal chest wall excursions. No adventitious sounds. Abdomen: Soft, nontender, nondistended. No guarding. Musculoskeletal: No gross deformities. No edema. Warm, well-perfused. Skin: Warm. No obvious rashes or erythema. Neuro: Alert and oriented x3. MIRIAN. EOMs intact. Right arm power 4/5. Right leg power 3/5. Left arm 3/5 Left leg 5/5. Assessment and Plan - Assessment and Plan Plan: Plan: Assessment/plan: Cervical spinal stenosis, C2-C5 -Most likely cause of right-sided weakness -Plan operative decompression cervical spine -Preoperative steroids - maintain adequate spinal perfusion. T8 level thoracic spine stenosis -Observe for now Diabetes mellitus -Reduce basal coverage -Continue sliding scale correction -Will start diabetic constant carb diet today -N.p.o. after midnight FEN -Continue hydration with isotonic crystalloid Prophylaxis -SCDs for DVT prophylaxis -Initiate chemical DVT prophylaxis postoperatively -Pepcid for GI ulcer prophylaxis Overall impression: new post-operative weakness is concerning. agree with dexamethasone. nsgy aware. keep in ICU for frequent neuro checks.
[2018-09-29] MEDS: Vancomycin Inj 1,000 MG in Sodium Chlor 0.9% Inj 250 ML IV.SIG SCH (20:02)
[2018-09-29 20:51] LABS: Hemoglobin A1c 9.3 % (4.3-6.0)
[2018-09-30] MEDS: Chlorhexidine Gluconate 2% 1 Pack (2 Cloths) TOPICAL SCH (03:50)
[2018-09-30 04:25] LABS: Baso % (Auto) 0.1 % (0.0-2.0); Hematocrit 34.5 % (39.0-51.0); Hemoglobin 11.8 gm/dL (13.0-17.0); Lymph # (Auto) 0.9 th/mm3 (1.0-4.8); Lymph % (Auto) 8.7 % (9.0-44.0); Mean Corpuscular HGB Conc 34.3 % (32.0-36.0); Mean Corpuscular Hemoglobin 32.2 pg (27.0-34.0); Mean Corpuscular Volume 93.7 fL (80.0-100.0); Mean Platelet Volume 8.4 fL (7.0-11.0); Mono # (Auto) 0.5 th/mm3 (0.0-0.9); Mono % (Auto) 4.2 % (0.0-8.0); Neut # (Auto) 9.6 th/mm3 (1.8-7.7); Platelet Count 274 th/mm3 (150-450); Red Blood Count 3.68 mil/mm3 (4.50-5.90); Red Cell Distribution Width 13.3 % (11.6-17.2)
[2018-09-30 04:52] LABS: Anion Gap 6 meq/L (5-15); Blood Urea Nitrogen 10 mg/dL (7-18); Calcium 8.5 mg/dL (8.5-10.1); Carbon Dioxide 27.7 meq/L (21.0-32.0); Chloride 109 meq/L (98-107); Glomerular Filtration Rate Greater Than 89 mL/min (>89); Glucose,Random 125 mg/dL (74-106); Potassium 4.2 meq/L (3.5-5.1); Sodium 143 meq/L (136-145)
[2018-09-30] MEDS: Heparin - SQ 10,000 UNITS/ML Vial SQ SCH ×3 (05:53→23:20)
[2018-09-30] MEDS: Sod Chloride 0.9% Inj 1,000 ML IV.CONT SCH ×3 (05:54→20:57)
[2018-09-30] MEDS: Famotidine 20 MG Tablet PO SCH ×2 (09:49→20:55)
[2018-09-30] MEDS: Senna/Docusate Sodium 8.6/50 MG Tablet PO SCH ×2 (09:49→20:55)
[2018-09-30] MEDS: Vancomycin Inj 1,000 MG in Sodium Chlor 0.9% Inj 250 ML IV.SIG SCH (09:49)
--- NOTE | 2018-09-30 10:02 | P.PNCC ---
Subjective Subjective Remarks/Hospital Course: Hospital Course: This 48-year-old gentleman with insulin-dependent diabetes mellitus and an episode of diabetic ketoacidosis recently noted at the time of that admission that he had right leg weakness. He returns to the emergency department today with worsening right-sided symptoms including weakness in the arm and leg and pain in the right leg. Evaluation demonstrated normal MRI of the brain but MRI of the cervical spine revealed severe stenosis at levels C2 through C5 consistent with his weakness and symptoms. This is a critical situation with spinal cord compression. He received an initial dose of steroids in the emergency department and will receive steroids prior to surgery. We anticipate poor control of his diabetes with steroid administration and he will be admitted to the intensive care unit for management prior to his much needed cervical spine decompression. Subjective: 09/29: s/p decompression and fusion. now post-operative and with new left-sided arm weakness. stat MRI stable when compared to prior. nsgy added dexamethasone. patient denies complaints except for new arm weakness. 09/30: doing well overnight. remains weak on the left, but strength is slowly improving. adequate spinal perfusion pressure. denies new complaints. Objective Vital Signs / I&O: Vital Signs 09/29/18 14:20 09/29/18 14:30 09/29/18 14:45 Temperature 36.4 C L Pulse Rate 88 96 H 106 H Respiratory Rate 12 12 24 Blood Pressure 131/79 135/82 Pulse Oximetry 100 100 100 09/29/18 15:00 09/29/18 15:15 09/29/18 15:30 Temperature Pulse Rate 97 H 92 H 88 Respiratory Rate 18 18 18 Blood Pressure 140/89 137/75 134/81 Pulse Oximetry 100 100 100 09/29/18 16:15 09/29/18 16:20 09/29/18 16:30 Temperature 36.7 C Pulse Rate 85 87 84 Respiratory Rate 20 20 14 Blood Pressure 130/79 Pulse Oximetry 100 100 100 09/29/18 16:45 09/29/18 16:50 09/29/18 17:00 Temperature Pulse Rate 84 82 88 Respiratory Rate 12 11 L 12 Blood Pressure 139/86 Pulse Oximetry 100 100 100 09/29/18 18:00 09/29/18 19:00 09/29/18 20:00 Temperature 36.9 C Pulse Rate 79 70 83 Respiratory Rate 10 L 9 L 18 Blood Pressure Pulse Oximetry 100 100 100 09/29/18 21:00 09/29/18 22:00 09/29/18 23:00 Temperature Pulse Rate 72 80 70 Respiratory Rate 12 15 11 L Blood Pressure Pulse Oximetry 100 100 100 09/30/18 00:00 09/30/18 01:00 09/30/18 02:00 Temperature 36.6 C Pulse Rate 86 69 66 Respiratory Rate 18 12 11 L Blood Pressure Pulse Oximetry 100 100 100 09/30/18 03:00 09/30/18 04:00 Temperature Pulse Rate 64 68 Respiratory Rate 12 12 Blood Pressure Pulse Oximetry 100 100 Intake & Output 09/29/18 09/30/18 09/30/18 18:59 06:59 18:59 Intake Total 4140 / 4140 1730 / 1730 Output Total 3140 / 3140 1920 / 1920 Balance 1000 / 1000 -190 / -190 Weight 105.3 kg Intake: IV 1100 / 1100 1250 / 1250 NS Inj 1,000 ML @ 70 mls/hr IV. 1100 / 1100 1000 / 1000 CONT .[id number] RICHARD Rx#:[id number] Vancomycin Inj 1,000 MG In NS 250 / 250 Inj 250 ML @ 250 mls/hr IV.SIG Q12H R[facility]ARD Rx#:[id number] Oral 240 / 240 480 / 480 Anesthesia Amount 2800 / 2800 Output: Estimated Blood Loss 350 / 350 Urine Amount (Catheter) 2700 / 2700 1800 / 1800 Indwelling Urethral Catheter 2700 / 2700 1800 / 1800 Wound Drainage 90 / 90 120 / 120 # 1 Posterior Neck LUCAS Drain 90 / 90 120 / 120 Other: # Bowel Movements 0 Result Diagrams: 09/30/18 03:30 09/30/18 03:30 Objective Remarks: General: middle-aged male, lying in bed Head: Normocephalic. Atraumatic. EENT: MIRIAN. Nose without drainage. Airway widely patent. Cardiovascular: Regular rate and rhythm. sinus. No JVD. Respiratory: equal chest rise. nc o2. Normal chest wall excursions. No adventitious sounds. Abdomen: Soft, nontender, nondistended. No guarding. Musculoskeletal: No gross deformities. No edema. Warm, well-perfused. Skin: Warm. No obvious rashes or erythema. Neuro: Alert and oriented x3. MIRIAN. EOMs intact. Right arm power 4/5. Right leg power 4/5. Left arm 4-/5 Left leg 5/5. Assessment and Plan - Assessment and Plan Plan: Plan: Assessment/plan: Cervical spinal stenosis, C2-C5 -Most likely cause of right-sided weakness -Plan operative decompression cervical spine -Preoperative steroids - maintain adequate spinal perfusion. - PT consulted. T8 level thoracic spine stenosis -Observe for now Diabetes mellitus -Reduce basal coverage -Continue sliding scale correction -diabetic diet Prophylaxis -SCDs for DVT prophylaxis -Initiate chemical DVT prophylaxis postoperatively per nsgy. -Pepcid for GI ulcer prophylaxis Overall impression: slow improvements. needs aggressive PT. keep spinal perfusion adequate for a few more days. needs ICU level care while we watch spinal perfusion and monitor new neuro deficits.
--- NOTE | 2018-09-30 17:31 | P.PNNS ---
Subjective Interval history: September 30, 2018 This is postoperative day #1 status post bilateral C2 through C6 laminectomies with foraminotomies with a posterior lateral fusion with instrumentation from C2 through C6. The patient has remained stable overnight he complains of only mild neck pain. The weakness and numbness that he had in all 4 extremities has improved greatly. His greatest impairment is in his hands bilaterally. He has not been mobilized. Physical Exam Vital signs: Vital Signs 09/29/18 18:00 09/29/18 19:00 09/29/18 20:00 Temperature 98.4 F Pulse Rate 79 70 83 Respiratory Rate 10 L 9 L 18 Blood Pressure Pulse Oximetry 100 100 100 09/29/18 21:00 09/29/18 22:00 09/29/18 23:00 Temperature Pulse Rate 72 80 70 Respiratory Rate 12 15 11 L Blood Pressure Pulse Oximetry 100 100 100 09/30/18 00:00 09/30/18 01:00 09/30/18 02:00 Temperature 98 F Pulse Rate 86 69 66 Respiratory Rate 18 12 11 L Blood Pressure Pulse Oximetry 100 100 100 09/30/18 03:00 09/30/18 04:00 09/30/18 05:00 Temperature Pulse Rate 64 68 66 Respiratory Rate 12 12 10 L Blood Pressure Pulse Oximetry 100 100 100 09/30/18 06:00 09/30/18 07:00 09/30/18 08:00 Temperature Pulse Rate 67 66 70 Respiratory Rate 13 7 L 12 Blood Pressure Pulse Oximetry 100 100 100 09/30/18 09:00 09/30/18 10:00 09/30/18 11:00 Temperature Pulse Rate 65 89 85 Respiratory Rate 8 L 19 14 Blood Pressure Pulse Oximetry 100 100 100 09/30/18 12:00 09/30/18 13:00 09/30/18 14:00 Temperature 98.5 F Pulse Rate 81 78 82 Respiratory Rate 12 12 17 Blood Pressure Pulse Oximetry 100 100 100 09/30/18 14:46 09/30/18 15:00 09/30/18 16:00 Temperature 99.2 F Pulse Rate 102 H 99 H 107 H Respiratory Rate 22 13 23 Blood Pressure 152/82 H Pulse Oximetry 100 100 100 09/30/18 17:00 Temperature Pulse Rate 98 H Respiratory Rate 22 Blood Pressure Pulse Oximetry 100 Intake & Output 09/29/18 09/30/18 09/30/18 18:59 06:59 18:59 Intake Total 4140 / 4140 1730 / 1730 420 / 420 Output Total 3140 / 3140 1920 / 1920 750 / 750 Balance 1000 / 1000 -190 / -190 -330 / -330 Weight 105.3 kg Intake: IV 1100 / 1100 1250 / 1250 NS Inj 1,000 ML @ 70 mls/hr IV. 1100 / 1100 1000 / 1000 CONT .[id number] R[facility]ARD Rx#:[id number] Vancomycin Inj 1,000 MG In NS 250 / 250 Inj 250 ML @ 250 mls/hr IV.SIG Q12H [facility] Rx#:[id number] Oral 240 / 240 480 / 480 420 / 420 Anesthesia Amount 2800 / 2800 Output: Urine 400 / 400 Estimated Blood Loss 350 / 350 Urine Amount (Catheter) 2700 / 2700 1800 / 1800 350 / 350 Indwelling Urethral Catheter 2700 / 2700 1800 / 1800 350 / 350 Wound Drainage 90 / 90 120 / 120 # 1 Posterior Neck LUCAS Drain 90 / 90 120 / 120 Other: # Bowel Movements 0 - Routine Neurological Exam September 30, 2018 Patient is lying in bed as I enter the room. He is in no acute distress. Mental status testing finds him to be awake and alert. He is oriented by 3. Cognitive functions grossly intact. His speech is fluent. Cranial nerve testing 2 through 12 is grossly intact. Motor examination reveals 4 plus over 5 + weakness finger extensors and interossei bilaterally with subtle weakness of the hip flexors bilaterally more so on the left than the right. Sensory is intact to light touch and position throughout. He has not been out of bed as yet. A Cee catheter remains in place. The wound is clear with some very minimal sanguinous drainage. - Urinary Catheter Management Indwelling Urethral Catheter Cath placed during this visit: yes, but has since been removed by the nurse Reason for continuing: Decision to DC catheter Insertion date: 09/29/18 Insertion time: 08:25 Removal date: 09/30/18 Removal time: 10:00 Assessment and Plan - Plan September 30, 2018 The patient is stable postoperative day #1 status post bilateral C2 through C6 laminectomies with foraminotomies with a posterior lateral fusion with instrumentation from C2 through C6. Initially postoperatively he was essentially densely quadriparetic but this is greatly improved. A postoperative MRI scan of the cervical spine revealed an adequate decompression with adequate alignment and no sign of postoperative epidural hematoma. There was increase in the T2 signal change within the cord parenchyma at C3-4 which had been present preoperatively the patient's postoperative laboratory evaluation is stable. At this point his mean arterial pressure should be maintained between 80 and 85 torr for the next 2-3 days. The Cee catheter can be discontinued and the patient can be mobilized. Physical therapy and occupational therapy should be consulted for evaluation and treatment. The patient should be evaluated for transfer for inpatient rehabilitation and it would be appropriate to obtain a physiatry consultation. LUCAS drain will remain in place for the next 2-3 days. Neurosurgery will follow.
[2018-10-01] MEDS: Sod Chloride 0.9% Inj 1,000 ML IV.CONT SCH ×3 (01:41→23:06)
[2018-10-01] MEDS: Chlorhexidine Gluconate 2% 1 Pack (2 Cloths) TOPICAL SCH (05:37)
[2018-10-01] MEDS: Heparin - SQ 10,000 UNITS/ML Vial SQ SCH ×3 (05:37→21:02)
[2018-10-01] MEDS: Famotidine 20 MG Tablet PO SCH ×2 (08:40→20:58)
[2018-10-01] MEDS: Senna/Docusate Sodium 8.6/50 MG Tablet PO SCH ×2 (08:40→20:58)
--- NOTE | 2018-10-01 10:50 | P.PNNS ---
Subjective Interval history: 10/01/2018 his bowen catheter has been discontinued and patient has been urinating. His surgical pain controlled. He continues to report improvement. <RoldanRuth - Last Filed: 10/01/18 10:42> Physical Exam Vital signs: Vital Signs 09/30/18 11:00 09/30/18 12:00 09/30/18 13:00 Temperature 98.5 F Pulse Rate 85 81 78 Respiratory Rate 14 12 12 Blood Pressure Pulse Oximetry 100 100 100 09/30/18 14:00 09/30/18 14:46 09/30/18 15:00 Temperature Pulse Rate 82 102 H 99 H Respiratory Rate 17 22 13 Blood Pressure 152/82 H Pulse Oximetry 100 100 100 09/30/18 16:00 09/30/18 17:00 09/30/18 20:00 Temperature 99.2 F 98.5 F Pulse Rate 107 H 98 H 90 Respiratory Rate 23 22 13 Blood Pressure Pulse Oximetry 100 100 100 10/01/18 00:00 10/01/18 04:00 10/01/18 08:00 Temperature 98.5 F 98.0 F Pulse Rate 67 64 85 Respiratory Rate 11 L 9 L Blood Pressure Pulse Oximetry 100 99 Intake & Output 09/30/18 10/01/18 10/01/18 18:59 06:59 18:59 Intake Total 670 / 670 1000 / 1000 Output Total 750 / 750 1545 / 1545 Balance -80 / -80 -545 / -545 Weight 107.3 kg Intake: IV 250 / 250 1000 / 1000 NS Inj 1,000 ML @ 70 mls/hr IV. 1000 / 1000 CONT .[id number] RICHARD Rx#:[id number] Vancomycin Inj 1,000 MG In NS 250 / 250 Inj 250 ML @ 250 mls/hr IV.SIG Q12H [facility]ARD Rx#:[id number] Oral 420 / 420 Output: Urine 400 / 400 1375 / 1375 Urine Amount (Catheter) 350 / 350 Indwelling Urethral Catheter 350 / 350 Wound Drainage 170 / 170 # 1 Posterior Neck LUCAS Drain 170 / 170 Other: # Voids 3 Narrative: October 01, 2018 Patient is lying in bed as I enter the room. He is in no acute distress. Mental status testing finds him to be awake and alert. He is oriented by 3. Cognitive functions grossly intact. His speech is fluent. Cranial nerve testing 2 through 12 is grossly intact. Motor examination reveals 4 plus over 5 + weakness finger extensors and interossei bilaterally with subtle weakness of the hip flexors bilaterally more so on the left than the right. Sensory is intact to light touch and position throughout. He is urinating. The wound is clear with some very minimal sanguinous drainage. - Urinary Catheter Management Indwelling Urethral Catheter Cath placed during this visit: yes, but has since been removed by the nurse Reason for continuing: Decision to DC catheter Insertion date: 09/29/18 Insertion time: 08:25 Removal date: 09/30/18 Removal time: 10:00 <Ruth Montilla - Last Filed: 10/01/18 10:42> Vital signs: Vital Signs 09/30/18 13:00 09/30/18 14:00 09/30/18 14:46 Temperature 98.5 F Pulse Rate 78 82 102 H Respiratory Rate 12 17 22 Blood Pressure 152/82 H Pulse Oximetry 100 100 100 09/30/18 15:00 09/30/18 16:00 09/30/18 17:00 Temperature 99.2 F Pulse Rate 99 H 107 H 98 H Respiratory Rate 13 23 22 Blood Pressure Pulse Oximetry 100 100 100 09/30/18 20:00 10/01/18 00:00 10/01/18 04:00 Temperature 98.5 F 98.5 F 98.0 F Pulse Rate 90 67 64 Respiratory Rate 13 11 L 9 L Blood Pressure Pulse Oximetry 100 100 99 10/01/18 05:00 10/01/18 06:00 10/01/18 07:00 Temperature Pulse Rate 68 72 72 Respiratory Rate 7 L 10 L 10 L Blood Pressure Pulse Oximetry 100 100 92 L 10/01/18 08:00 10/01/18 09:00 10/01/18 10:00 Temperature 97.6 F Pulse Rate 64 68 91 H Respiratory Rate 9 L 11 L 13 Blood Pressure Pulse Oximetry 100 100 100 10/01/18 10:13 10/01/18 11:00 10/01/18 11:17 Temperature Pulse Rate 90 89 101 H Respiratory Rate 16 17 16 Blood Pressure 144/85 H 165/94 H 162/87 H Pulse Oximetry 100 100 100 10/01/18 11:58 10/01/18 12:00 Temperature 98.1 F Pulse Rate 86 88 Respiratory Rate 11 L 11 L Blood Pressure 173/90 H Pulse Oximetry 100 100 Intake & Output 09/30/18 10/01/18 10/01/18 18:59 06:59 18:59 Intake Total 670 / 670 1000 / 1000 Output Total 750 / 750 1545 / 1545 Balance -80 / -80 -545 / -545 Weight 107.3 kg Intake: IV 250 / 250 1000 / 1000 NS Inj 1,000 ML @ 70 mls/hr IV. 1000 / 1000 CONT .[id number] R[facility]ARD Rx#:[id number] Vancomycin Inj 1,000 MG In NS 250 / 250 Inj 250 ML @ 250 mls/hr IV.SIG Q12H [facility]ARD Rx#:[id number] Oral 420 / 420 Output: Urine 400 / 400 1375 / 1375 Urine Amount (Catheter) 350 / 350 Indwelling Urethral Catheter 350 / 350 Wound Drainage 170 / 170 # 1 Posterior Neck LUCAS Drain 170 / 170 Other: # Voids 3 - Urinary Catheter Management Indwelling Urethral Catheter Cath placed during this visit: no <Clement Pinto - Last Filed: 10/01/18 12:31> Assessment and Plan - Plan September 30, 2018 The patient is stable postoperative day #1 status post bilateral C2 through C6 laminectomies with foraminotomies with a posterior lateral fusion with instrumentation from C2 through C6. Initially postoperatively he was essentially densely quadriparetic but this is greatly improved. A postoperative MRI scan of the cervical spine revealed an adequate decompression with adequate alignment and no sign of postoperative epidural hematoma. There was increase in the T2 signal change within the cord parenchyma at C3-4 which had been present preoperatively the patient's postoperative laboratory evaluation is stable. At this point his mean arterial pressure should be maintained between 80 and 85 torr for the next 2-3 days. The Bowen catheter can be discontinued and the patient can be mobilized. Physical therapy and occupational therapy should be consulted for evaluation and treatment. The patient should be evaluated for transfer for inpatient rehabilitation and it would be appropriate to obtain a physiatry consultation. LUCAS drain will remain in place for the next 2-3 days. Neurosurgery will follow. October 01, 2018 POD #2 patient remains neurologically stable with improvement of neurological function postoperatively. He is urinating. Will continue LUCAS drain until tomorrow. His wound is clean and dry. Will continue MAP parameter between 80-85. Continue physical and occupational therapy and mobilization. Physiatry has been consulted. Will follow. <Ruth Montilla - Last Filed: 10/01/18 10:42> - Attending Attestation October 01, 2018 I personally interviewed and examined the patient. I reviewed the documentation , laboratory evaluation, and the imaging. I discussed the case with the neurosurgery team and we formulated a plan which is as described above. The patient has remained stable postoperative day #2. Neurologically he continues to improve. He apparently ambulated with physical therapy and reports that he feels that his legs are weak. He is continent of bowel and bladder. A physiatry consultation is pending. Neurosurgery will follow. <Clement Pinto - Last Filed: 10/01/18 12:31>
--- NOTE | 2018-10-01 11:30 | P.PNCC ---
Subjective Subjective Remarks/Hospital Course: Hospital Course: This 48-year-old gentleman with insulin-dependent diabetes mellitus and an episode of diabetic ketoacidosis recently noted at the time of that admission that he had right leg weakness. He returns to the emergency department today with worsening right-sided symptoms including weakness in the arm and leg and pain in the right leg. Evaluation demonstrated normal MRI of the brain but MRI of the cervical spine revealed severe stenosis at levels C2 through C5 consistent with his weakness and symptoms. This is a critical situation with spinal cord compression. He received an initial dose of steroids in the emergency department and will receive steroids prior to surgery. We anticipate poor control of his diabetes with steroid administration and he will be admitted to the intensive care unit for management prior to his much needed cervical spine decompression. Subjective: 09/29: s/p decompression and fusion. now post-operative and with new left-sided arm weakness. stat MRI stable when compared to prior. nsgy added dexamethasone. patient denies complaints except for new arm weakness. 09/30: doing well overnight. remains weak on the left, but strength is slowly improving. adequate spinal perfusion pressure. denies new complaints. 10/01: continues to improve. strength improving as well. spinal perfusion maintained. denies new complaints. ROS negative. Objective Vital Signs / I&O: Vital Signs 09/30/18 12:00 09/30/18 13:00 09/30/18 14:00 Temperature 36.9 C Pulse Rate 81 78 82 Respiratory Rate 12 12 17 Blood Pressure Pulse Oximetry 100 100 100 09/30/18 14:46 09/30/18 15:00 09/30/18 16:00 Temperature 37.3 C Pulse Rate 102 H 99 H 107 H Respiratory Rate 22 13 23 Blood Pressure 152/82 H Pulse Oximetry 100 100 100 09/30/18 17:00 09/30/18 20:00 10/01/18 00:00 Temperature 36.9 C 36.9 C Pulse Rate 98 H 90 67 Respiratory Rate 22 13 11 L Blood Pressure Pulse Oximetry 100 100 100 10/01/18 04:00 10/01/18 08:00 Temperature 36.7 C Pulse Rate 64 85 Respiratory Rate 9 L Blood Pressure Pulse Oximetry 99 Intake & Output 09/30/18 10/01/18 10/01/18 18:59 06:59 18:59 Intake Total 670 / 670 1000 / 1000 Output Total 750 / 750 1545 / 1545 Balance -80 / -80 -545 / -545 Weight 107.3 kg Intake: IV 250 / 250 1000 / 1000 NS Inj 1,000 ML @ 70 mls/hr IV. 1000 / 1000 CONT .[id number] [facility] Rx#:[id number] Vancomycin Inj 1,000 MG In NS 250 / 250 Inj 250 ML @ 250 mls/hr IV.SIG Q12H [facility] Rx#:[id number] Oral 420 / 420 Output: Urine 400 / 400 1375 / 1375 Urine Amount (Catheter) 350 / 350 Indwelling Urethral Catheter 350 / 350 Wound Drainage 170 / 170 # 1 Posterior Neck LUCAS Drain 170 / 170 Other: # Voids 3 Result Diagrams: 09/30/18 03:30 09/30/18 03:30 Objective Remarks: General: middle-aged male, lying in bed, no acute distress Head: Normocephalic. Atraumatic. EENT: [place]IR[place]. Nose without drainage. Airway widely patent. Cardiovascular: Regular rate and rhythm. sinus. No JVD. Respiratory: equal chest rise. nc o2. Normal chest wall excursions. No adventitious sounds. Abdomen: Soft, nontender, nondistended. No guarding. Musculoskeletal: No gross deformities. No edema. Warm, well-perfused. Skin: Warm. No obvious rashes or erythema. Neuro: Alert and oriented x3. MIRIAN. EOMs intact. Right arm power 4/5. Right leg power 4/5. Left arm 4/5 Left leg 5/5. Assessment and Plan - Assessment and Plan Plan: Plan: Assessment/plan: Cervical spinal stenosis, C2-C5 -Most likely cause of right-sided weakness -Plan operative decompression cervical spine -Perioperative steroids - maintain adequate spinal perfusion. - PT consulted. T8 level thoracic spine stenosis -Observe for now Diabetes mellitus -Reduce basal coverage -Continue sliding scale correction -diabetic diet Prophylaxis -SCDs for DVT prophylaxis -Initiate chemical DVT prophylaxis postoperatively per nsgy. -Pepcid for GI ulcer prophylaxis Overall impression: slow improvements. needs aggressive PT. stable to transfer out of ICU. consult hospitalist service.
[2018-10-02] MEDS: Sod Chloride 0.9% Inj 1,000 ML IV.CONT SCH (04:53)
[2018-10-02] MEDS: Chlorhexidine Gluconate 2% 1 Pack (2 Cloths) TOPICAL SCH (05:48)
[2018-10-02] MEDS: Heparin - SQ 10,000 UNITS/ML Vial SQ SCH ×2 (05:48→16:15)
[2018-10-02] MEDS: Famotidine 20 MG Tablet PO SCH ×2 (08:28→20:34)
[2018-10-02] MEDS: Senna/Docusate Sodium 8.6/50 MG Tablet PO SCH ×2 (08:28→20:34)
[2018-10-02 09:05] LABS: Baso # (Auto) 0.1 th/mm3 (0.0-0.2); Baso % (Auto) 0.5 % (0.0-2.0); Hematocrit 35.4 % (39.0-51.0); Hemoglobin 12.2 gm/dL (13.0-17.0); Lymph # (Auto) 1.3 th/mm3 (1.0-4.8); Lymph % (Auto) 14.1 % (9.0-44.0); Mean Corpuscular HGB Conc 34.4 % (32.0-36.0); Mean Corpuscular Hemoglobin 31.7 pg (27.0-34.0); Mean Corpuscular Volume 92.2 fL (80.0-100.0); Mean Platelet Volume 8.7 fL (7.0-11.0); Mono # (Auto) 0.5 th/mm3 (0.0-0.9); Mono % (Auto) 5.3 % (0.0-8.0); Neut # (Auto) 7.5 th/mm3 (1.8-7.7); Neut % (Auto) 80.1 % (16.0-70.0); Platelet Count 288 th/mm3 (150-450); Red Blood Count 3.84 mil/mm3 (4.50-5.90); Red Cell Distribution Width 13.2 % (11.6-17.2); White Blood Count 9.4 th/mm3 (4.0-11.0)
--- NOTE | 2018-10-02 09:20 | P.PNNS ---
Subjective Interval history: minimal surgical pain, no neuro changes <RoldanRuth - Last Filed: 10/02/18 09:21> Physical Exam Vital signs: Vital Signs 10/01/18 10:00 10/01/18 10:13 10/01/18 11:00 Temperature Pulse Rate 91 H 90 89 Respiratory Rate 13 16 17 Blood Pressure 144/85 H 165/94 H Pulse Oximetry 100 100 100 10/01/18 11:17 10/01/18 11:58 10/01/18 12:00 Temperature 98.1 F Pulse Rate 101 H 86 88 Respiratory Rate 16 11 L 11 L Blood Pressure 162/87 H 173/90 H Pulse Oximetry 100 100 100 10/01/18 13:00 10/01/18 14:00 10/01/18 15:00 Temperature Pulse Rate 90 87 73 Respiratory Rate 12 14 13 Blood Pressure Pulse Oximetry 100 100 100 10/01/18 16:00 10/01/18 20:00 10/02/18 00:00 Temperature 98.0 F 98.7 F 98.0 F Pulse Rate 73 86 65 Respiratory Rate 13 29 H 8 L Blood Pressure 148/87 H 156/85 H Pulse Oximetry 100 100 100 10/02/18 04:00 Temperature 97.7 F Pulse Rate 66 Respiratory Rate 8 L Blood Pressure 144/82 H Pulse Oximetry 99 Intake & Output 10/01/18 10/02/18 10/02/18 18:59 06:59 18:59 Intake Total 1720 / 1720 1000 / 1000 Output Total 1160 / 1160 1045 / 1045 Balance 560 / 560 -45 / -45 Weight 108.6 kg Intake: IV 1000 / 1000 1000 / 1000 NS Inj 1,000 ML @ 70 mls/hr IV. 1000 / 1000 1000 / 1000 CONT .[id number] [facility] Rx#:[id number] Oral 720 / 720 Output: Urine 1000 / 1000 975 / 975 Wound Drainage 160 / 160 70 / 70 # 1 Posterior Neck LUCAS Drain 160 / 160 70 / 70 Other: # Voids 3 2 Date of Last Bowel Movement 09/28/18 # Bowel Movements 0 Narrative: October 02, 2018 Patient is lying in bed as I enter the room. He is in no acute distress. Mental status testing finds him to be awake and alert. He is oriented by 3. Cognitive functions grossly intact. His speech is fluent. Cranial nerve testing 2 through 12 is grossly intact. Motor examination reveals 4 plus over 5 + weakness finger extensors and interossei bilaterally with subtle weakness of the hip flexors bilaterally more so on the left than the right. Sensory is intact to light touch and position throughout. He is urinating. The wound is clean and dry, with some mild serous drainage seen on dressing. - Urinary Catheter Management Indwelling Urethral Catheter Cath placed during this visit: yes, but has since been removed by the nurse Reason for continuing: Decision to DC catheter Insertion date: 09/29/18 Insertion time: 08:25 Removal date: 09/30/18 Removal time: 10:00 <Ruth Montilla - Last Filed: 10/02/18 09:21> Vital signs: Vital Signs 10/01/18 20:00 10/02/18 00:00 10/02/18 04:00 Temperature 98.7 F 98.0 F 97.7 F Pulse Rate 86 65 66 Respiratory Rate 29 H 8 L 8 L Blood Pressure 148/87 H 156/85 H 144/82 H Pulse Oximetry 100 100 99 10/02/18 07:00 10/02/18 08:00 10/02/18 08:10 Temperature Pulse Rate 65 63 88 Respiratory Rate 8 L 9 L Blood Pressure Pulse Oximetry 97 99 10/02/18 08:32 10/02/18 09:00 10/02/18 10:00 Temperature 97.7 F Pulse Rate 76 87 82 Respiratory Rate 22 24 12 Blood Pressure 179/93 H Pulse Oximetry 100 100 99 10/02/18 11:00 10/02/18 11:40 10/02/18 11:44 Temperature Pulse Rate 86 86 83 Respiratory Rate 16 22 20 Blood Pressure 149/84 H Pulse Oximetry 100 100 100 10/02/18 11:51 10/02/18 12:00 10/02/18 12:10 Temperature 98.2 F Pulse Rate 76 71 Respiratory Rate 21 11 L Blood Pressure 152/88 H 138/81 Pulse Oximetry 100 100 10/02/18 13:00 10/02/18 13:19 10/02/18 14:00 Temperature Pulse Rate 67 78 79 Respiratory Rate 15 18 12 Blood Pressure 172/84 H Pulse Oximetry 100 100 100 10/02/18 14:19 10/02/18 15:00 10/02/18 16:00 Temperature 97.9 F Pulse Rate 76 87 78 Respiratory Rate 20 29 H 18 Blood Pressure 152/90 H Pulse Oximetry 100 100 100 10/02/18 16:16 Temperature Pulse Rate 83 Respiratory Rate 19 Blood Pressure 134/86 Pulse Oximetry 100 Intake & Output 10/02/18 10/02/18 10/03/18 06:59 18:59 06:59 Intake Total 1000 / 1000 1500 / 1500 Output Total 1045 / 1045 1000 / 1000 Balance -45 / -45 500 / 500 Weight 108.6 kg Intake: IV 1000 / 1000 1000 / 1000 NS Inj 1,000 ML @ 70 mls/hr IV. 1000 / 1000 1000 / 1000 CONT .[id number] [facility] Rx#:[id number] Oral 500 / 500 Output: Urine 975 / 975 1000 / 1000 Wound Drainage 70 / 70 # 1 Posterior Neck LUCAS Drain 70 / 70 Other: # Voids 2 4 Date of Last Bowel Movement 10/02/18 - Urinary Catheter Management Indwelling Urethral Catheter Cath placed during this visit: no <Clement Pinto - Last Filed: 10/02/18 19:17> Assessment and Plan - Plan September 30, 2018 The patient is stable postoperative day #1 status post bilateral C2 through C6 laminectomies with foraminotomies with a posterior lateral fusion with instrumentation from C2 through C6. Initially postoperatively he was essentially densely quadriparetic but this is greatly improved. A postoperative MRI scan of the cervical spine revealed an adequate decompression with adequate alignment and no sign of postoperative epidural hematoma. There was increase in the T2 signal change within the cord parenchyma at C3-4 which had been present preoperatively the patient's postoperative laboratory evaluation is stable. At this point his mean arterial pressure should be maintained between 80 and 85 torr for the next 2-3 days. The Cee catheter can be discontinued and the patient can be mobilized. Physical therapy and occupational therapy should be consulted for evaluation and treatment. The patient should be evaluated for transfer for inpatient rehabilitation and it would be appropriate to obtain a physiatry consultation. LUCAS drain will remain in place for the next 2-3 days. Neurosurgery will follow. October 01, 2018 POD #2 patient remains neurologically stable with improvement of neurological function postoperatively. He is urinating. Will continue LUCAS drain until tomorrow. His wound is clean and dry. Will continue MAP parameter between 80-85. Continue physical and occupational therapy and mobilization. Physiatry has been consulted. Will follow. October 02, 2018 POD #3 remains neurologically stable. LUCAS drain to be removed today. His wound remains clean and dry, continue daily dressing changes and monitoring. Skin brenda to be removed 2 weeks postoperative. Continue physical and occupational therapy, discharge recommendations to inpatient rehab. Patient is clear to be transferred out of ICU. Will follow. <Ruth Montilla - Last Filed: 10/02/18 09:21> - Attending Attestation October 02, 2018 I personally interviewed and examined the patient. I reviewed the documentation , laboratory evaluation, and the imaging. I discussed the case with the neurosurgery team we formulated a plan which is as described above. The patient is stable postoperatively. His myelopathy is improving. Discharge planning should be pursued to determine if the patient is able to be discharged home or needs to be discharged for a course of inpatient rehabilitation. Neurosurgery will follow. <Clement Pinto - Last Filed: 10/02/18 19:17>
[2018-10-02 09:30] LABS: Anion Gap 5 meq/L (5-15); Aspartate Aminotransferase 25 U/L (15-37); Blood Urea Nitrogen 18 mg/dL (7-18); Calcium 8.7 mg/dL (8.5-10.1); Carbon Dioxide 28.6 meq/L (21.0-32.0); Chloride 106 meq/L (98-107); Glomerular Filtration Rate Greater Than 89 mL/min (>89); Glucose,Random 114 mg/dL (74-106)
[2018-10-02 09:31] LABS: Alanine Aminotransferase 33 U/L (12-78)
[2018-10-02 09:34] LABS: Alkaline Phosphatase 64 U/L (45-117)
[2018-10-02 09:52] LABS: Sodium 140 meq/L (136-145)
[2018-10-02 12:17] VITALS: O2SAT 100
--- NOTE | 2018-10-02 15:19 | P.PNIM ---
Subjective Interval history: No overnight events, LUCAS drain removed, afebrile. Discussed with nursing. Eating, tolerating diet. Physical Exam Vital signs: Vital Signs 10/01/18 16:00 10/01/18 20:00 10/02/18 00:00 Temperature 98.0 F 98.7 F 98.0 F Pulse Rate 73 86 65 Respiratory Rate 13 29 H 8 L Blood Pressure 148/87 H 156/85 H Pulse Oximetry 100 100 100 10/02/18 04:00 10/02/18 07:00 10/02/18 08:00 Temperature 97.7 F Pulse Rate 66 65 63 Respiratory Rate 8 L 8 L 9 L Blood Pressure 144/82 H Pulse Oximetry 99 97 99 10/02/18 08:10 10/02/18 08:32 10/02/18 09:00 Temperature 97.7 F Pulse Rate 88 76 87 Respiratory Rate 22 24 Blood Pressure 179/93 H Pulse Oximetry 100 100 10/02/18 10:00 10/02/18 11:00 10/02/18 11:40 Temperature Pulse Rate 82 86 86 Respiratory Rate 12 16 22 Blood Pressure 149/84 H Pulse Oximetry 99 100 100 10/02/18 11:44 10/02/18 11:51 10/02/18 12:00 Temperature 98.2 F Pulse Rate 83 76 Respiratory Rate 20 21 Blood Pressure 152/88 H Pulse Oximetry 100 100 10/02/18 12:10 Temperature Pulse Rate 71 Respiratory Rate 11 L Blood Pressure 138/81 Pulse Oximetry 100 Intake & Output 10/01/18 10/02/18 10/02/18 18:59 06:59 18:59 Intake Total 1720 / 1720 1000 / 1000 1000 / 1000 Output Total 1160 / 1160 1045 / 1045 Balance 560 / 560 -45 / -45 1000 / 1000 Weight 108.6 kg Intake: IV 1000 / 1000 1000 / 1000 1000 / 1000 NS Inj 1,000 ML @ 70 mls/hr IV. 1000 / 1000 1000 / 1000 1000 / 1000 CONT .[id number] [facility] Rx#:[id number] Oral 720 / 720 Output: Urine 1000 / 1000 975 / 975 Wound Drainage 160 / 160 70 / 70 # 1 Posterior Neck LUCAS Drain 160 / 160 70 / 70 Other: # Voids 3 2 Date of Last Bowel Movement 09/28/18 # Bowel Movements 0 Narrative: GENERAL: Well-nourished, well-developed pleasant middle-age male patient in NAD. CARDIOVASCULAR: Regular rate and rhythm. No murmur appreciated. RESPIRATORY: No accessory muscle use. Clear to auscultation. Breath sounds equal bilaterally. No edema. NEUROLOGICAL: Awake and alert. No obvious cranial nerve deficits. Urinary Catheter Management Indwelling Urethral Catheter: Cath placed during this visit: yes, but has since been removed by the nurse Reason for continuing: Decision to DC catheter Insertion date: 09/29/18 Insertion time: 08:25 Removal date: 09/30/18 Removal time: 10:00 Results Labs CBC & Chem 7: 10/02/18 08:30 10/02/18 08:30 Assessment and Plan Plan Cervical spinal stenosis, C2-C5 -Most likely cause of right-sided weakness, neurosurgery on board, status post bilateral C2 through C6 laminectomies with foraminotomies with a posterior lateral fusion with instrumentation from C2 through C6 -LUCAS drain removed today. Skin brenda to be removed 2 weeks postop. T8 level thoracic spine stenosis -Observe for now Diabetes mellitus -Reduce basal coverage -Continue sliding scale correction -diabetic diet Prophylaxis -SCDs for DVT prophylaxis -Initiate chemical DVT prophylaxis postoperatively per nsgy. -Pepcid for GI ulcer prophylaxis Will need rehab Transfer to regular floor, [facility] once cleared by neurosurgery. Stop IVF. Progress Note: Quality VTE Deep Vein Thrombosis/Pulmonary Embolism Present on Admission: No
[2018-10-03] MEDS: Heparin - SQ 10,000 UNITS/ML Vial SQ SCH ×3 (00:16→14:21)
[2018-10-03] MEDS: Chlorhexidine Gluconate 2% 1 Pack (2 Cloths) TOPICAL SCH (05:57)
--- NOTE | 2018-10-03 08:20 | P.PNNS ---
Subjective Interval history: minimal surgical pain, showing continued Neurological improvement. No events overnight Physical Exam Vital signs: Vital Signs 10/02/18 08:32 10/02/18 09:00 10/02/18 10:00 Temperature 97.7 F Pulse Rate 76 87 82 Respiratory Rate 22 24 12 Blood Pressure 179/93 H Pulse Oximetry 100 100 99 10/02/18 11:00 10/02/18 11:40 10/02/18 11:44 Temperature Pulse Rate 86 86 83 Respiratory Rate 16 22 20 Blood Pressure 149/84 H Pulse Oximetry 100 100 100 10/02/18 11:51 10/02/18 12:00 10/02/18 12:10 Temperature 98.2 F Pulse Rate 76 71 Respiratory Rate 21 11 L Blood Pressure 152/88 H 138/81 Pulse Oximetry 100 100 10/02/18 13:00 10/02/18 13:19 10/02/18 14:00 Temperature Pulse Rate 67 78 79 Respiratory Rate 15 18 12 Blood Pressure 172/84 H Pulse Oximetry 100 100 100 10/02/18 14:19 10/02/18 15:00 10/02/18 16:00 Temperature 97.9 F Pulse Rate 76 87 78 Respiratory Rate 20 29 H 18 Blood Pressure 152/90 H Pulse Oximetry 100 100 100 10/02/18 16:16 10/02/18 19:00 10/02/18 20:00 Temperature 97.8 F Pulse Rate 83 72 71 Respiratory Rate 19 13 12 Blood Pressure 134/86 158/79 H Pulse Oximetry 100 100 100 10/02/18 20:22 10/02/18 21:00 10/02/18 22:00 Temperature Pulse Rate 75 70 67 Respiratory Rate 20 12 11 L Blood Pressure 158/79 H Pulse Oximetry 100 100 100 10/02/18 23:00 10/03/18 00:00 10/03/18 01:00 Temperature 97.8 F Pulse Rate 85 65 61 Respiratory Rate 29 H 16 7 L Blood Pressure Pulse Oximetry 99 100 97 10/03/18 02:00 10/03/18 03:00 10/03/18 04:00 Temperature 97.9 F Pulse Rate 61 60 61 Respiratory Rate 9 L 9 L 10 L Blood Pressure Pulse Oximetry 100 100 100 10/03/18 05:00 Temperature Pulse Rate 62 Respiratory Rate 10 L Blood Pressure Pulse Oximetry 100 Intake & Output 02/10/03/18 10/03/18 18:59 06:59 18:59 Intake Total 1500 / 1500 Output Total 1000 / 1000 1150 / 1150 Balance 500 / 500 -1150 / -1150 Weight 106.1 kg Intake: IV 1000 / 1000 NS Inj 1,000 ML @ 70 mls/hr IV. 1000 / 1000 CONT .[id number] [facility] Rx#:[id number] Oral 500 / 500 Output: Urine 1000 / 1000 1150 / 1150 Other: # Voids 4 Date of Last Bowel Movement 10/02/18 09/25/18 - Constitutional no acute distress, obese, cooperative - Routine HEENT Exam Head: Present: normocephalic, atraumatic Eye: Present: EOMI, PERRL, normal accommodation ENT: Present: mucous membranes moist, oropharynx clear - Routine Neck Exam Present: supple, full ROM, trachea midline Comments: Posterior cervical spine incision clean, dry, intact. - Routine Respiratory Exam Present: CTA bilaterally - Routine Cardiovascular Exam Present: RRR - Routine Abdominal Exam Present: soft, normoactive bowel sounds - Routine Extremities Exam Present: full ROM, pulses intact, normal capillary refill - Routine Skin Exam Present: intact, warm, normal turgor - Routine Neurological Exam Patient is sitting in chair as I enter the room. He is in no acute distress. Mental status: AAO x3 Speech fluent Cognitive functions grossly intact. CNII-XII: intact. Motor examination reveals 4 plus over 5+ weakness finger extensors and interossei bilaterally with subtle weakness of the hip flexors bilaterally more so on the left than the right. Sensory is intact to light touch and position throughout. - Detailed Neurological Exam: Coma Scale Eye Opening: Spontaneous Verbal Response: Oriented Motor Response: Obey commands Melo Coma Scale Total: 15 - Routine Psychiatric Exam Present: normal affect, normal thought process, cooperative - Urinary Catheter Management Indwelling Urethral Catheter Cath placed during this visit: yes, but has since been removed by the nurse Reason for continuing: Decision to DC catheter Insertion date: 09/29/18 Insertion time: 08:25 Removal date: 09/30/18 Removal time: 10:00 Assessment and Plan - Plan September 30, 2018 The patient is stable postoperative day #1 status post bilateral C2 through C6 laminectomies with foraminotomies with a posterior lateral fusion with instrumentation from C2 through C6. Initially postoperatively he was essentially densely quadriparetic but this is greatly improved. A postoperative MRI scan of the cervical spine revealed an adequate decompression with adequate alignment and no sign of postoperative epidural hematoma. There was increase in the T2 signal change within the cord parenchyma at C3-4 which had been present preoperatively the patient's postoperative laboratory evaluation is stable. At this point his mean arterial pressure should be maintained between 80 and 85 torr for the next 2-3 days. The Cee catheter can be discontinued and the patient can be mobilized. Physical therapy and occupational therapy should be consulted for evaluation and treatment. The patient should be evaluated for transfer for inpatient rehabilitation and it would be appropriate to obtain a physiatry consultation. LUCAS drain will remain in place for the next 2-3 days. Neurosurgery will follow. October 01, 2018 POD #2 patient remains neurologically stable with improvement of neurological function postoperatively. He is urinating. Will continue LUCAS drain until tomorrow. His wound is clean and dry. Will continue MAP parameter between 80-85. Continue physical and occupational therapy and mobilization. Physiatry has been consulted. Will follow. October 02, 2018 POD #3 remains neurologically stable. LUCAS drain to be removed today. His wound remains clean and dry, continue daily dressing changes and monitoring. Skin brenda to be removed 2 weeks postoperative. Continue physical and occupational therapy, discharge recommendations to inpatient rehab. Patient is clear to be transferred out of ICU. Will follow. October 03, 2018 POD #4 remains neurologically stable. LUCAS drain out. His wound remains clean and dry, D/C dressing, allow to air dry. Skin brenda to be removed 2 weeks postoperative. Patient is clear to be transferred to [facility] from Neurosurgical standpoint Will sign off and be available as needed.
[2018-10-03] MEDS: Famotidine 20 MG Tablet PO SCH (10:22)
[2018-10-03] MEDS: Senna/Docusate Sodium 8.6/50 MG Tablet PO SCH (10:22)
[2018-10-03 13:11] VITALS: BP 139/88; PULSE 80; RESP 19; TEMP 97.8
--- NOTE | 2018-10-03 14:36 | P.DS ---
DS: Providers Date of admission: 09/28/18 08:53 Primary care physician: No Primary Care Physician Consults: 09/28/18 00:07 Consult to Neurology Routine Consulting Provider: Joe Olivia Reason for Consultation: Worsening right sided weakness Notified:: Service Spoke with:: rissa Date Notified:: 09/28/18 Time Notified:: 00:12 Ordering Provider: SARAH 09/28/18 05:18 Consult to Neurosurgery Routine Consulting Provider: Dimtiri Jacobs Reason for Consultation: Severe cervical canal stenosis and cord compression Spoke with:: adding to list - courtesy call to Dr Jacobs this AM Date Notified:: 09/28/18 Time Notified:: 05:54 Ordering Provider: SARAH 09/28/18 08:49 Consult to Rehab Medicine Routine Consulting Provider: Dayanna Choudhury Reason for Consultation: myelopathy Notified:: Office Spoke with:: Tyler Date Notified:: 09/28/18 Time Notified:: 08:54 Ordering Provider: JIAN 10/01/18 11:30 Consult to Hospitalist Routine Consulting Provider: Noah Lr Reason for Consultation: cervical stenosis with myelopathy s/p decompression Notified:: Service Spoke with:: Nila Date Notified:: 10/01/18 Time Notified:: 12:02 Comments:: waiting psychiatric nurse practitioner back --[place] [id number] Ordering Provider: ANDRÉS DS: Diagnosis Discharge Diagnosis (1) Spinal stenosis: Status: Acute DS: Summary This is a 48-year-old male with history of diabetes mellitus with right-sided weakness. Patient was found to have cervical spinal stenosis, C2 C5. Neurosurgery was consulted, status post bilateral C2 through C6 laminectomies with foraminotomies with a posterior lateral fusion with instrumentation from C2 through C6. Postoperative course was unremarkable. Patient may be discharged to [facility]. Cleared by neurosurgery. Patient also was found to have T8 level thoracic spine stenosis, this may be observe for now. Diabetes mellitus was controlled with patient's home regimen. Skin brenda to be removed 2 weeks postop. Time Spent with Patient Total time spent providing and/or coordinating discharge services: Greater than 30 minutes Quality: VTE Deep Vein Thrombosis/Pulmonary Embolism Present on Admission: No Exam Narrative Exam Narrative: S> no overnight events, no complaints, afebrile. BP stable. O>Narrative: GENERAL: Well-nourished, well-developed pleasant middle-age male patient in NAD. CARDIOVASCULAR: Regular rate and rhythm. No murmur appreciated. RESPIRATORY: No accessory muscle use. Clear to auscultation. Breath sounds equal bilaterally. No edema. NEUROLOGICAL: Awake and alert, oriented x3. No obvious cranial nerve deficits. Results Labs on day of discharge: Labs from last 24 hours 10/03/18 10/03/18 10/03/18 12:00 08:50 07:02 POC Glucose 171 H 118 H 120 H 10/02/18 10/02/18 23:15 17:43 POC Glucose 121 H 112 H Impressions ITS Impressions Chest X-Ray 09/27/18 18:51 CONCLUSION: The lungs are clear. Head CT 09/27/18 18:51 CONCLUSION: 1. Negative CT Head non contrast. . Carotid Doppler Study 09/28/18 00:00 CONCLUSION: Negative for hemodynamically significant stenosis Head MRI 09/28/18 00:00 CONCLUSION: 1. Negative MRI of the brain. Head MRA 09/28/18 00:00 CONCLUSION: 1. Negative MRA of the brain Thoracic Spine MRI 09/28/18 00:00 CONCLUSION: 1. Cord compression and signal abnormality within the narrowed cord at the T7- 8 level. The impression on the cord is due to a combination of central disc/ osteophyte complex, and ossification of the posterior longitudinal ligament. 2. Small anterior epidural impressions at T5-6 and T8-9 without evidence of cord compression. Cervical Spine CT 09/28/18 00:48 CONCLUSION: Severe upper cervical canal stenosis and cord compression related to OPLL Lumbar Spine CT 09/28/18 00:48 CONCLUSION: 1. No acute bony findings. 2. Disc disease most notably at L5-S1 with asymmetrically left-sided foraminal stenosis present. 3. No significant lumbar canal compromise. Thoracic Spine CT 09/28/18 00:48 CONCLUSION: Significant thoracic canal stenosis at the T7-8 disc space level related to presumed exuberant ligamentous ossification in the dorsal canal. Less pronounced similar changes at multiple additional levels Cervical Spine MRI 09/29/18 00:00 CONCLUSION: 1. Postsurgical changes with fusion posteriorly and bilateral laminectomies C2- C6. 2. T2 signal abnormality within the cord on the left at C3-4 likely myelomalacia. Cervical Spine X-Ray 09/29/18 00:00 CONCLUSION: Intraoperative images. Discharge Plan Discharge Disposition Patient Disposition: Discharge Home Discharge Condition Condition: Good Discharge Order Discharge Orders: Discharge Order (Routine); Ordered 10/03/18 Ordered By: Alisha Monson Discharge Details Anticipated Discharge Date: 10/03/18 Physicians Team ED Provider: Romana Greenwood Primary Care Provider: Cindy Heard Attending Provider: Alisha Monson Other Providers: Joe Olivia ; Dimitri Jacobs ; Dayanna Choudhury Rxs /Orders / Referrals /Forms Prescriptions: New cyclobenzaprine 10 mg Tablet 10 mg PO Q8H PRN (Reason: Muscle Spasm) Qty: 90 RF: 0 sennosides [Senna Lax] 8.6 mg Tablet 17.2 mg PO Q12H PRN (Reason: Moderate Constipation) Qty: 30 RF: 0 sennosides-docusate sodium [Senna Plus] 8.6-50 mg Tablet 1 tab PO BID Qty: 30 RF: 0 oxycodone-acetaminophen 5-325 mg Tablet 2 tab PO Q4H PRN (Reason: Pain Scale 7 To 10 Severe) Qty: 15 RF: 0 Continue insulin aspart U-100 [Novolog U-100 Insulin aspart] 100 unit/mL Solution subcut ACHS Qty: 15 RF: 0 insulin detemir U-100 [Levemir U-100 Insulin] 100 unit/mL Solution 5 unit subcut HS Qty: 15 RF: 0 Discontinued insulin detemir U-100 [Levemir U-100 Insulin] 100 unit/mL Solution 15 unit subcut DAILY Qty: 15 RF: 0 Referrals: Primary Care Cindy Blanton [Primary Care Provider] - See Instructions Status ED Status: Left Department
== END 2018-10-03 14:40 | DRG 472 ==
LOC: NEPE 18:27 → INTOOBSV 22:51 → NEDA 22:51 → NEPGCP 09-28 00:45 → N03 09-28 15:48
PROVIDERS: ADMIT Hospitalist; ATTEND Hospitalist
CPT/HCPCS: 70450; 70544; 70551; 71010; 71045; 72040; 72125; 72128; 72131; 72141; 72146; 76000; 80048; 80053; 80061; 81001; 82607; 82948; 82962; 83036; 83735; 84443; 84484; 85025; 85027; 85610; 85730; 86850; 86900; 86901; 87641; 90658; 90686; 93005; 93306; 93880; 94150; 97110; 97116; 97162; 97164; 97166; 97530; 97535; 99285; C1713; C9290; G8987; G8988; J0131; J1100; J1170; J1580; J1644; J1815; J2250; J2370; J2405; J2704; J3010; J3370; J7030; J7040; J7050; J7120; Q2038